=== PATIENT | male | born 1935 | race Caucasian/White ===

== ENCOUNTER 2017-09-27 11:04 | Outpatient (RCR) | payer MEDICARE, OTHER | END 2017-10-30 | disposition home or self-care (01) | PROVIDERS: ATTEND Orthopaedic Surgery | DX: M54.2 Cervicalgia (principal) ==

== ENCOUNTER 2018-10-29 10:45 | Day surgery (SDC) | payer MEDICARE, OTHER ==
[~2018-10-29] VITALS: Ht 170.2 cm; Wt 58.5 kg
[2018-10-29 10:40] VITALS: BP 141/76
[2018-10-29] MEDS ORDERED: ONDANSETRON 4 MG/2 ML (SDV) Z0FRAN IV ONE (11:15)
[2018-10-29] MEDS ORDERED: FAMOTIDINE 20MG/2ML IV (PEPCID) IV ONE (11:15)
--- OUTSIDE RECORDS SUMMARY | 2018-10-29 11:24 | XMS REPORT | Continuity of Care Document ---
Author Author [facility] Organization [facility] Address Unknown Phone Unavailable Allergies There is no data. Medications There is no data. Problems Date Dx Coded Attending Type Code Diagnosis Diagnosed By 02/26/2016 JENNIFER ESPINOZA STAMP PRESSER Ot M54.2 CERVICALGIA 03/01/2016 JENNIFER ESPINOZA STAMP PRESSER Ot M54.2 CERVICALGIA 03/01/2016 GIFTY ESPINOZAH E STAMP PRESSER Ot M54.2 CERVICALGIA 03/01/2016 JENNIFER ESPINOZA E STAMP PRESSER Ot M54.2 CERVICALGIA 03/26/2016 JENNIFER ESPINOZA STAMP PRESSER Ot M54.2 CERVICALGIA 08/01/2017 AZUCENA CORONA DO Ot M54.2 CERVICALGIA 08/25/2017 AZUCENA CORONA DO Ot M54.2 CERVICALGIA 10/30/2017 AZUCENA CORONA DO Ot M54.2 CERVICALGIA Procedures There is no data. Results There is no data. Encounters ACCT No. Visit Date/Time Discharge Status Pt. Type Provider Facility Loc./Unit Complaint [id number] 10/31/2017 00:30:00 10/31/2017 23:59:59 CLS Preadmit AZUCENA CORONA DO [facility] REH[facility]K [facility] [id number] 09/27/2017 11:04:00 10/30/2017 00:01:00 DIS Outpatient AZUCENA CORONA DO [facility] REHAB NECK PAIN [id number] 04/20/2016 09:42:00 04/20/2016 13:51:00 DIS Outpatient [facility]
[2018-10-29] MEDS ORDERED: BUP/EPI 0.5% 1:200,000 (SENSORCAINE) 30 ML VIAL ONE (11:44)
[2018-10-29] MEDS: LACTATED RINGERS 1,000 ML IV PRN ×2 (11:45→14:30)
--- NOTE | 2018-10-29 11:49 | History & Physicial ---
History of Present Illness History of Present Illness Reason for visit/HPI increasing right upper quadrant pain nausea 2 days duration. Evaluation has shown gallstones with features of acute cholecystitis. LFTs are normal Date of Admission 10/29/18 Date Seen by a Provider: Oct 29, 2018 Time Seen by a Provider: 11:45 I consulted on this patient on 10/29/18 11:44 Attending Physician Ronald Brooke MD Admitting Physician No,Local Physician Consult Allergies and Home Medications Allergies Coded Allergies: No Known Allergies (Verified Allergy, Unknown, 10/29/18) Patient Home Medication List Home Medication List Reviewed: Yes Past Yitywpd-Xfemdp-Bouisu Hx Patient Social History Marrital Status: Employed/Student: retired Recent Foreign Travel: No Contact w/other who traveled: No Surgeries Yes Nephrectomy, Orthopedic Respiratory No Cardiovascular Yes Coronary Artery Disease, Hypertension Neurological No Genitourinary No Gastrointestinal Yes Gastroesophageal Reflux Musculoskeletal Yes Arthritis Endocrine History of Endocrine Disorders: No HEENT History of HEENT Disorders: No Review of Systems Constitutional: malaise EENTM: no symptoms reported Respiratory: no symptoms reported Gastrointestinal: see HPI Genitourinary: no symptoms reported Musculoskeletal: joint pain Skin: no symptoms reported Psychiatric/Neurological: No Symptoms Reported Physical Exam Vital Signs Capillary Refill : Height, Weight, BMI Height: '" Weight: lbs. oz. kg; BMI Method: General Appearance: No Apparent Distress Neck: Normal Inspection Respiratory: Lungs Clear Cardiovascular: Regular Rate, Rhythm Gastrointestinal: Hernia, Tenderness Extremity: Other Neurologic/Psychiatric: Oriented x3 Skin: Warm/Dry Comments transverse scar over the right side of the abdomen with an incisional hernia closer to the midline. Large lumbar hernia with a lipoma over the right side. 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 Multiple other medical problems. I offered cholecystectomy using minimally invasive technique with robotic assistance and possible cholangiogram. Expected recovery, complications of wound infection, bile leak etc. have been discussed thoroughly and he seems to be in agreement Admission Diagnosis Admission Status: Other (Same Day Surgery) RONALD BROOKE MD Oct 29, 2018 11:49
--- NOTE | 2018-10-29 11:49 | Progress Note-Pre Operative ---
Pre-Operative Progress Note H&P Reviewed The H&P was reviewed, patient examined and no changes noted. Date Seen by Provider: Oct 29, 2018 Time Seen by Provider: 11:20 Date H&P Reviewed: Oct 29, 2018 Time H&P Reviewed: 11:49 Pre-Operative Diagnosis: gallstones with acute cholecystitis RONALD BROOKE MD Oct 29, 2018 11:49
[2018-10-29] MEDS ORDERED: proPOfol 200 MG/20 ML (DIPRIVAN) VIAL IV ONE (12:11)
[2018-10-29] MEDS ORDERED: fentaNYL INJECTION 100 MCG/2 ML AMP ONE (12:11)
[2018-10-29] MEDS ORDERED: ROCURONIUM 10 MG/ML 5 ML SYRINGE IV ONE (12:11)
[2018-10-29] MEDS ORDERED: DEXAMETHASONE 10 MG/ML (DECADRON) 1 ML VIAL ONE (12:11)
[2018-10-29] MEDS ORDERED: ONDANSETRON 4 MG/2 ML (SDV) Z0FRAN ONE (12:11)
[2018-10-29] MEDS ORDERED: SEVOFLURANE (ULTANE) 15 ML INHAL SOLN ONE ×3 (12:14→14:37)
[2018-10-29] MEDS ORDERED: ceFAZolin 1 GM/NS 50 ML IVPB IV ONE ×2 (12:15)
[2018-10-29] MEDS ORDERED: metroNIDAZOLE 500MG/100ML IVPB 100 ML IV ONE (12:15)
[2018-10-29] MEDS ORDERED: ASCO-262 PO (13:31)
[2018-10-29] MEDS ORDERED: ONDA4TAB11 PO (13:31)
[2018-10-29] MEDS ORDERED: FISH1CAP15 PO (13:31)
[2018-10-29] MEDS ORDERED: CYAN10006 PO (13:31)
[2018-10-29] MEDS ORDERED: LEVO50TA6 PO (13:31)
[2018-10-29] MEDS ORDERED: ALLO300T2 PO (13:31)
[2018-10-29] MEDS ORDERED: PANT40TA3 PO (13:31)
[2018-10-29] MEDS ORDERED: CALC-6 PO (13:31)
[2018-10-29] MEDS ORDERED: TRAM50TA2 PO (13:31)
[2018-10-29] MEDS ORDERED: LACTATED RINGERS 1,000 ML IV ONE (14:37)
--- NOTE | 2018-10-29 15:10 | Operative Report ---
Operative Report Date of Procedure/Surgery Oct 29, 2018 Surgeon (s) RONALD BROOKE MD Range Master (s): N/A Post-Operative Diagnosis Same Procedure Performed Robotic assisted cholecystectomy Description of Procedure Anesthesia Type: General Estimated blood loss (mL): Minimal Specimen(s) collected/removed Gallbladder with large stones Description of the Procedure Indication for the procedure: This gentleman presented with symptomatic gallstones and features of acute cholecystitis. He was offered prompt cholecystectomy, using minimally invasive technique with robotic assistance. Informed consent was obtained after reviewing the operative details and complications of wound infection, bile leak and cardiorespiratory dysfunction. Description of the procedure: He was placed supine on the operative table and general anesthesia induced. 1 g of Ancef and 500 mg of Flagyl were administered intravenously as prophylaxis against wound infection. Sequential compression devices were placed around his legs, to minimize the risk of venous thrombosis. Abdomen was made and draped in the usual sterile manner. Due to previous upper abdominal surgery involving nephrectomy, I elected to establish pneumoperitoneum using a Veress needle introduced over the left costal region. Intra-abdominal pressure was maintained at 15 mmHg, using carbon dioxide insufflation. A 5 mm trocar was placed and anatomy visualized using the 30, conventional laparoscope. Omentum and the pylorus of the stomach where adherent to the anterior abdominal wall, obscuring the subhepatic region. Under direct view, I placed a 12 mm trocar over the subumbilical region, followed by 2 additional 8 mm trocars over each side of the abdomen. We, then, switched to the robotic system. Omental adhesions were taken down using hook cautery, without any iatrogenic injury to the pylorus. An acutely inflamed gallbladder with an associated phlegmon came into view. The fundus of the gallbladder was retracted cephalad, in preparation for dissection. Since the gallbladder was rather tense, it had to be decompressed deliberately allowing the spillage of a total of 5 large gallstones. These were placed over the subhepatic space to be removed at the end of the operation. Eventually, I was able to grasp the infundibulum of the gallbladder with Cadiere forceps and delineate the cystic duct and artery using a combination of blunt dissection with the suction tip and cautery. Both were controlled between locking hemoclips. Cholecystectomy was then completed using hook cautery. Subhepatic space was irrigated with copious amounts of warm saline. The gallbladder and the large stones were placed in an Endo Catch bag and removed via the subumbilical trocar site, under direct laparoscopic view. The fascia over this incision was then closed using #1 Vicryl. Skin incisions were closed using 4-0 Vicryl, in a subcuticular fashion. 0.5 percent Marcaine with epinephrine was infiltrated along the incisions, both preemptively and at the conclusion of the operation. He tolerated the procedure well, was extubated in the operative room and taken to the recovery room in a stable condition. Findings of the Procedure See op report Allergies and Home Medications Allergies Coded Allergies: No Known Allergies (Verified Allergy, Unknown, 10/29/18) Home Medications Allopurinol 300 Mg Tablet, 300 MG PO DAILY, (Reported) Ascorbate Calcium 500 Mg Tablet, 500 MG PO DAILY, (Reported) Calcium Carbonate/Vitamin D3 1 Each Tablet, 1 EACH PO DAILY, (Reported) Cyanocobalamin (Vitamin B-12) 1,000 Mcg Tablet, 1,000 MCG PO UD, (Reported) TAKES ONE TABLET PO THREE TIMES A WEEK Levothyroxine Sodium 50 Mcg Tablet, 50 MCG PO DAILY, (Reported) Ondansetron 4 Mg Tab.rapdis, 4 MG PO Q6H, (Reported) Pantoprazole Sodium 40 Mg Tablet.dr, 40 MG PO DAILY, (Reported) Tramadol HCl 50 Mg Tablet, 50 MG PO Q6H, (Reported) Patient Home Medication List Home Medication List Reviewed: Yes RONALD BROOKE MD Oct 29, 2018 15:10
[2018-10-29] MEDS ORDERED: fentaNYL INJECTION 100 MCG/2 ML AMP IV PRN (15:15)
[2018-10-29] MEDS ORDERED: HYDROcodone/APAP 5 MG/325 MG (LORTAB) TAB PO PRN (15:15)
[2018-10-29] MEDS ORDERED: ONDANSETRON 4 MG/2 ML (SDV) Z0FRAN IVP PRN ×2 (15:15→15:45)
--- NOTE | 2018-10-29 15:16 | Discharge Inst-Simple/Standard ---
Discharge Inst-Standard Discharge Medications New, Converted or Re-Newed RX: Other Patient Instructions/Follow Up Plan of Care/Instructions/FU: May use tramadol that he already has. Band-Aids off before discharge. Follow-up in 10 days Activity as Tolerated: Yes Discharge Diet: No Restrictions RONALD BROOKE MD Oct 29, 2018 15:16
[2018-10-29] MEDS ORDERED: morphine INJ 10 MG/ML 1ML (SYR OR VIAL) IVP ONE (15:45)
[2018-10-29] MEDS ORDERED: HYDROmorphone 2 MG/ML VIAL (DILAUDID) IV ONE (15:45)
[2018-10-29] MEDS ORDERED: morphine INJ 10 MG/ML 1ML (SYR OR VIAL) ONE (15:47)
[2018-10-29] MEDS ORDERED: NEOSTIGMINE 1 MG/ML 5 ML SYRINGE ONE (16:39)
[2018-10-29] MEDS ORDERED: GLYCOPYRROLATE 0.2 MG/ML (ROBINUL) 2 ML VIAL ONE (16:39)
[2018-10-29 16:50] VITALS: BP 120/60
[2018-10-29 19:05] VITALS: BP 149/75
[2018-10-29] MEDS: ceFAZolin INJECTION 1,000 MG in NS (IVPB) 50 ML IV SCH (20:18)
[2018-10-29] MEDS: metroNIDAZOLE 500MG/100ML IVPB 100 ML IV SCH (21:38)
[2018-10-30 00:05] VITALS: BP 112/61
[2018-10-30 04:00] VITALS: BP 111/57
[2018-10-30] MEDS: metroNIDAZOLE 500MG/100ML IVPB 100 ML IV SCH (04:01)
--- NOTE | 2018-10-30 04:04 | NUR ---
Straight cath'd with sterile technique - return of 600 mls clear yellow urine. Pt tolerated well. will continue to monitor.
[2018-10-30] MEDS: ceFAZolin INJECTION 1,000 MG in NS (IVPB) 50 ML IV SCH (05:00)
[2018-10-30] MEDS ORDERED: LEVOTHYROXINE 50 MCG (LEVOTHROID) TAB PO SCH (06:30)
[2018-10-30] MEDS ORDERED: PANTOPRAZOLE 40 MG (PROTONIX) TAB PO SCH (07:00)
[2018-10-30 08:00] VITALS: BP 114/65
[2018-10-30] MEDS ORDERED: CALCIUM CARB + VIT D 600 MG (CALCARB + D) TAB PO SCH (08:00)
[2018-10-30] MEDS ORDERED: NON-FORMULARY MEDICATION 1 EA EA (Calcium Carbonate/Vitamin D3 (Calcium 600 + Vit D 200 Ta PO SCH (09:00)
[2018-10-30] MEDS ORDERED: NON-FORMULARY MEDICATION 1 EA EA (Allopurinol 300 MG) PO SCH (09:00)
[2018-10-30] MEDS ORDERED: ALLOPURINOL 300 MG (ZYLOPRIM) TAB PO SCH (09:00)
[2018-10-30 12:00] VITALS: BP 120/62
--- NOTE | 2018-10-30 12:44 | Anesthesia-General Post-Op ---
General Patient Condition Mental Status/LOC: Same as Preop Cardiovascular: Satisfactory Nausea/Vomiting: Absent Respiratory: Satisfactory Pain: Controlled Complications: Absent Post Op Complications Complications None Follow Up Care/Instructions Patient Instructions None needed. Anesthesia/Patient Condition Patient Condition Patient is doing well, no complaints, stable vital signs, no apparent adverse anesthesia problems. No complications reported per nursing. MTAHEW DEL ANGEL CRNA Oct 30, 2018 12:44
[2018-10-30 13:00] VITALS: BP 120/62
--- NOTE | 2018-10-30 13:00 | NUR ---
MARK HILTON JR demonstrates understanding of discharge instructions and accurately returns instructions upon questioning. Copy of Post-Discharge Instructions given to PT. MARK HILTON JR is able to manage continuing needs after discharge WITH ASSISTANCE OF . Patients belongings returned to PT. Patient discharged from [facility] on 10/30/18 at 1300. MARK HILTON JR left floor via W/C, accompanied by STAFF AND AUTO PER .
== END 2018-10-30 13:00 | disposition home or self-care (01) ==
LOC: SDC 10:45 → 4TH 17:05 → SDC 10-30 13:00
PROVIDERS: ATTEND Surgery
DX: K80.12 Calculus of gallbladder with acute and chronic cholecystitis without obstruction (principal); I25.10 Atherosclerotic heart disease of native coronary artery without angina pectoris; I10 Essential (primary) hypertension; K21.9 Gastro-esophageal reflux disease without esophagitis; Z79.899 Other long term (current) drug therapy
CPT/HCPCS: 87081; 94664

== ENCOUNTER → 2018-11-09 | Outpatient (CLI) | payer MEDICARE, OTHER ==
[~2018-11-09] MED LIST: ALLO300T2 PO; ASCO-262 PO; CALC-6 PO; CYAN10006 PO; FISH1CAP15 PO; LEVO50TA6 PO; ONDA4TAB11 PO; PANT40TA3 PO; TRAM50TA2 PO
--- NOTE | 2018-11-09 12:27 | Diagnostic Imaging Report ---
Indication: Dysphasia. Study was performed in conjunction with speech therapy. Videofluoroscopy was performed during swallowing of barium in multiple consistencies. Total of one minute 47 seconds of fluoroscopy time was utilized. Patient ingested thin and thick barium as well as applesauce, meat and cracker consistency. The oral phase is grossly unremarkable. There was normal epiglottic tilt and laryngeal elevation. No laryngeal penetration or aspiration was observed. There is a moderate vallecular residue identified with multiple consistencies. Impression: Moderate vallecular residue. No penetration or aspiration was observed. Dictated by: Dictated on workstation # [id number]
== END ==
LOC: RAD 09:12
PROVIDERS: ATTEND Internal Medicine Gastroenterology
DX: K21.9 Gastro-esophageal reflux disease without esophagitis (principal)
CPT/HCPCS: 74230

== ENCOUNTER 2018-11-20 09:50 | Outpatient (RCR) | payer MEDICARE, OTHER | END 2019-02-18 | disposition home or self-care (01) | PROVIDERS: ATTEND Internal Medicine Gastroenterology | DX: R13.19 Other dysphagia (principal) ==

== ENCOUNTER 2019-10-23 10:54 | Outpatient (RCR) | payer MEDICARE, OTHER ==
[~2019-10-23 10:54] MED LIST changes: +CYAN-41 PO; -CYAN10006 PO; -TRAM50TA2 PO; +TRM50T PO
== END 2019-10-23 12:00 | disposition home or self-care (01) ==
PROVIDERS: ATTEND Physician Assistant
DX: M40.294 Other kyphosis, thoracic region (principal); M54.2 Cervicalgia

== ENCOUNTER 2019-10-27 16:09 | Emergency (ER) | payer MEDICARE, OTHER ==
[~2019-10-27] VITALS: Ht 170 cm; Wt 60.0 kg
[2019-10-27] MEDS ORDERED: NS IV 500 ML 500 ML IV ONE (17:00)
--- NOTE | 2019-10-27 17:06 | ED Back Pain ---
General Chief Complaint: Back Problems Stated Complaint: LOWER BACK PAIN Source of Information: Patient, Family () Exam Limitations: Language Barrier, Physical Impairments (hard of hearing) History of Present Illness Date Seen by Provider: Oct 27, 2019 Time Seen by Provider: 16:47 Initial Comments 84-year-old male presents with for evaluation and treatment of back and flank pain. Patient states he's had progressive increasing pain over the past 2- 3 days. Pain is now very sharp patient states that his right kidney was removed in the secondary to a growth on the side of the kidney. He only has one kidney and now the left flank S significant pain with CVA tenderness spasm and colicky type pain that goes down into his flank and inguinal area. Patient also states he has low back pain with radicular component significant for sciatica. 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 Bradley is his attending physician patient has given informed consent for diagnostic and therapeutic services. In light of the flank pain that goes down into his anterior inguinal area were getting a scan for possible kidney stones as he only has a right sided system this working. This dictation utilizes [employer] software. Efforts have been made to correct any errors identified. Some errors are able to penetrates the review process. This is not an intentional event. If you have any questions regarding this dictation please contact Agata Almaguer DO Timing/Duration: 2-3 Days Severity: Moderate Pain/Injury Location: Back, Pelvis (and left flank) Radiation: Buttocks, Lower Legs, Other (left inguinal area) Method of Injury: Unknown (he started 3 days ago and has progressively gotten worse) Modifying Factors: Improves With Movement Associated Symptoms: muscle spasms, weakness, tingling in legs/feet, lower back pain, other (sensation of colicky pain in the left flank down to the left inguinal area) Allergies and Home Medications Allergies Coded Allergies: No Known Allergies (Verified Allergy, Unknown, 10/29/18) Home Medications Allopurinol 300 Mg Tablet, 300 MG PO DAILY, (Reported) Ascorbate Calcium 500 Mg Tablet, 500 MG PO DAILY, (Reported) Calcium Carbonate/Vitamin D3 1 Each Tablet, 1 EACH PO DAILY, (Reported) Cyanocobalamin (Vitamin B-12) 1,000 Mcg Tablet, 1,000 MCG PO UD, (Reported) TAKES ONE TABLET PO THREE TIMES A WEEK Levothyroxine Sodium 50 Mcg Tablet, 50 MCG PO DAILY, (Reported) Ondansetron 4 Mg Tab.rapdis, 4 MG PO Q6H, (Reported) Pantoprazole Sodium 40 Mg Tablet.dr, 40 MG PO DAILY, (Reported) Tramadol HCl 50 Mg Tablet, 50 MG PO Q6H, (Reported) Patient Home Medication List Home Medication List Reviewed: Yes Review of Systems Constitutional: malaise, weakness, other (progressive left-sided flank pain) EENTM: hearing loss, blurred vision (earlier), vision loss, nose congestion Respiratory: dyspnea on exertion, short of breath (with exertion) Cardiovascular: other (some shortness of breath on exertion) Gastrointestinal: LLQ, see HPI, other (left CVA tenderness and left pain radiating down to the inguinal area) Genitourinary: pain (only has a left-sided kidney and has symptoms in that area) Musculoskeletal: back pain, gout, joint swelling (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), muscle pain, muscle stiffness, muscle weakness Skin: dryness Psychiatric/Neurological: Anxiety, Weakness, Other (as loss of hearing and loss of vision which makes him more anxious) Past Snzodid-Mmpcty-Jbizfl Hx Past Med/Social Hx: Reviewed Nursing Past Med/Soc Hx Patient Social History Recent Hopitalizations: Yes (10/23/18,[facility], 10/27/18, [facility] ) Immunizations Up To Date Date of Pneumonia Vaccine: Dec 14, 2016 Date of Influenza Vaccine: Jul 11, 2018 Seasonal Allergies Seasonal Allergies: No Past Medical History Surgeries: Yes Nephrectomy, Orthopedic Respiratory: No Sleep Apnea Currently Using CPAP: No (HASNT USED CPAP FOR 5-6 YEARS) Cardiac: Yes Coronary Artery Disease, Hypertension Neurological: No Genitourinary: No Gastrointestinal: Yes Gastroesophageal Reflux Musculoskeletal: Yes Arthritis Endocrine: No Hypothyroidsim HEENT: No Hearing Impairment: Hard of Hearing, Hearing Aide Right Cancer: No Psychosocial: No Integumentary: No Blood Disorders: No Family Medical History Reviewed Nursing Family Hx Physical Exam Vital Signs Vital Signs - First Documented 10/27/19 16:51 Temp 37.5 Pulse 92 Resp 20 B/P (MAP) 156/63 (94) Pulse Ox 95 Capillary Refill : Height, Weight, BMI Height: 5'7.00" Weight: 129lbs. 0.0oz. [id number]; 20.2 BMI Method: General Appearance: Moderate Distress (affect flank pain and left back pain) HEENT: PERRL/EOMI (but poor vision since his cataract surgery), Normal ENT Inspection (significant hearing loss), Pharynx Normal Neck: Non Tender, Supple, Limited Range of Motion (Canary to DJD) Cardiovascular: Regular Rate, Rhythm, No Edema, No Gallop, No JVD, No Murmur Respiratory: Chest Non Tender, No Accessory Muscle Use, No Respiratory Distre ss, Crackles, Rales (lateral posterior bases clears with deep ventilation) Peripheral Pulses: 2+ Carotid (R), 2+ Carotid (L) Gastrointestinal: Normal Bowel Sounds, No Organomegaly, No Pulsatile Mass, Non Tender, Soft Back: Normal Inspection, CVA Tenderness (L), Muscle Spasm Extremity: Normal Capillary Refill, Normal Inspection, Normal Range of Motion, Non Tender, No Calf Tenderness Neurologic/Psychiatric: Alert, Oriented x3, No Motor/Sensory Deficits, Normal 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, 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 Norm as Tested Skin: Normal Color, Warm/Dry Lymphatic: No Adenopathy Progress/Results/Core Measures Results/Orders Lab Results Laboratory Tests Test 10/27/19 16:18 10/27/19 17:05 Range/Units Urine Color YELLOW Urine Clarity CLEAR Urine pH 7.5 5-9 Urine Specific Alpha 1.020 1.016-1.022 Urine Protein NEGATIVE NEGATIVE Urine Glucose (UA) NEGATIVE NEGATIVE Urine Ketones NEGATIVE NEGATIVE Urine Nitrite NEGATIVE NEGATIVE Urine Bilirubin NEGATIVE NEGATIVE Urine Urobilinogen 0.2 < = 1.0 MG/DL Urine Leukocyte Esterase NEGATIVE NEGATIVE Urine RBC (Auto) NEGATIVE NEGATIVE Urine RBC RARE /HPF Urine WBC RARE /HPF Urine Crystals NONE /LPF Urine Bacteria NEGATIVE /HPF Urine Casts NONE /LPF Urine Mucus NEGATIVE /LPF Urine Culture Indicated NO White Blood Count 10.6 4.3-11.0 10^3/uL Red Blood Count 4.22 L 4.35-5.85 10^6/uL Hemoglobin 13.3 13.3-17.7 G/DL Hematocrit 41 40-54 % Mean Corpuscular Volume 96 80-99 FL Mean Corpuscular Hemoglobin 32 25-34 PG Mean Corpuscular Hemoglobin Concent 33 32-36 G/DL Red Cell Distribution Width 12.6 10.0-14.5 % Platelet Count 139 130-400 10^3/uL Mean Platelet Volume 10.5 H 7.4-10.4 FL Neutrophils (%) (Auto) 72 42-75 % Lymphocytes (%) (Auto) 15 12-44 % Monocytes (%) (Auto) 11 0-12 % Eosinophils (%) (Auto) 1 0-10 % Basophils (%) (Auto) 1 0-10 % Neutrophils # (Auto) 7.6 1.8-7.8 X 10^3 Lymphocytes # (Auto) 1.6 1.0-4.0 X 10^3 Monocytes # (Auto) 1.2 H 0.0-1.0 X 10^3 Eosinophils # (Auto) 0.1 0.0-0.3 10^3/uL Basophils # (Auto) 0.1 0.0-0.1 10^3/uL Neutrophils % (Manual) 71 % Lymphocytes % (Manual) 14 % Monocytes % (Manual) 11 % Eosinophils % (Manual) 1 % Band Neutrophils 3 % Toxic Granulation 2+ Platelet Estimate ADEQUATE Blood Morphology Comment NORMAL Sodium Level 138 135-145 MMOL/L Potassium Level 4.4 3.6-5.0 MMOL/L Chloride Level 103 98-107 MMOL/L Carbon Dioxide Level 24 21-32 MMOL/L Anion Gap 11 5-14 MMOL/L Blood Urea Nitrogen 23 H 7-18 MG/DL Creatinine 1.61 H 0.60-1.30 MG/DL Estimat Glomerular Filtration Rate 41 BUN/Creatinine Ratio 14 Glucose Level 110 H 70-105 MG/DL Lactic Acid Level 1.10 0.50-2.00 MMOL/L Calcium Level 9.0 8.5-10.1 MG/DL Corrected Calcium 9.6 8.5-10.1 MG/DL Magnesium Level 2.0 1.6-2.4 MG/DL Total Bilirubin 0.4 0.1-1.0 MG/DL Aspartate Amino Transf (AST/SGOT) 15 5-34 U/L Alanine Aminotransferase (ALT/SGPT) 9 0-55 U/L Alkaline Phosphatase 91 40-136 U/L Total Protein 6.3 L 6.4-8.2 GM/DL Albumin 3.2 3.2-4.5 GM/DL Micro Results Microbiology 10/27/19 Influenza Types A,B Antigen (JARETH) - Final, Complete My Orders Orders - AGATA ALMAGUER DO Cbc And Manual Diff (10/27/19 16:56) Comprehensive Metabolic Panel (10/27/19 16:56) Lactic Acid Analyzer (10/27/19 16:56) Urinalysis (10/27/19 16:56) Ns Iv 500 Ml (Sodium Chloride 0.9%) (10/27/19 17:00) Ct Abd/Pelvis Wo(Kidney Stone) (10/27/19 16:56) Chest 1 View Ap/Pa Only (10/27/19 16:56) Magnesium (10/27/19 16:56) Ekg Tracing (10/27/19 16:56) Blood Culture (10/27/19 16:56) Influenza A And B Antigens (10/27/19 16:56) Azithromycin Injection (Zithromax Inject (10/27/19 19:15) Medications Given in ED Current Medications Medications Dose Ordered Sig/Dulce Route Start Time Stop Time Status Last Admin Dose Admin Azithromycin 500 mg/Sodium Chloride 250 ml @ 250 mls/hr ONCE ONCE IV 10/27/19 19:15 10/27/19 20:14 10/27/19 19:22 250 MLS/HR Sodium Chloride 500 ml @ 30 mls/hr [id number] ONCE IV 10/27/19 17:00 10/28/19 09:39 10/27/19 17:30 30 MLS/HR Vital Signs/I&O 10/27/19 16:51 Temp 37.5 Pulse 92 Resp 20 B/P (MAP) 156/63 (94) Pulse Ox 95 Progress Progress Note : Time: 18:59 Progress Note Patient feels better and is walking up and down the hallway. Imaging reveals the patient may have had a left ureteral obstruction that has recently passed because he has a hydronephrosis. Chest x-ray shows multiple nonspecific nodularities immediately follow-up in primary care. Does not appear the patient has an active ureteral obstruction however he does have several nonobstructing stones in his left kidney which puts him at significant risk and needs to stay very well-hydrated. INDICATION: Low back pain for three days. Right flank pain with intermittent left flank pain. History of right nephrectomy, hernia repair and cholecystectomy. EXAMINATION: CT kidney stone protocol, 10/27/2019. All CT scans use one or more of the following dose optimizing techniques: automated exposure control, MA and/or KvP adjustment based on patient size and exam type or iterative reconstruction. FINDINGS: There is evidence of previous right-sided nephrectomy. Nonopacified abdominal viscera limited due to lack of contrast. Multiple nonobstructive stones seen in the left kidney. There is mild left hydronephrosis suspected. Parapelvic cysts are also likely. The proximal left ureter is slightly prominent. More distally it demonstrates normal caliber; however, no ureteral stones are appreciated at this time. These findings could be due to a recently passed renal stone versus perhaps even pyelonephritis. Minimal wall thickening of the urinary bladder could be due to underdistention versus cystitis. The prostate gland is prominent. Calcifications throughout the pelvis are likely phleboliths. Diffuse diverticular disease is noted but no evidence for acute diverticulitis. Appendix unremarkable. The liver and spleen are grossly unremarkable for acute abnormality. Pancreas is within normal limits. Evidence of previous cholecystectomy noted. No acute abnormality within the bowel loops. No free air or fluid. Within the left lower quadrant anteriorly, just left lateral to the sigmoid colon, there is a focal nonspecific soft tissue density which is 2.4 x 3.3 cm in size. This is a nonspecific finding. Given the known history of previous internal hernia repair, this could be postoperative in nature. A focal soft tissue mass of uncertain etiology, including some type of soft tissue sarcoma, is difficult to exclude. Either comparison with any prior imaging or perhaps postcontrast imaging on a nonemergent basis may provide further characterization. No surrounding inflammation is seen. No acute osseous abnormality. The lung bases demonstrate chronic findings. Small nodule in the left lung base, approximately 4 mm in size, image #8, is noted and could be followed in 6-12 months depending on patient's risk factors. A similar finding noted on image #3, measuring approximately 3-4 mm in size. IMPRESSION: 1. Evidence of right nephrectomy with nonobstructive stones in the left kidney. Left-sided mild hydroureteronephrosis is seen with no ureteral stones at this time. Findings could be due to a recently passed stone versus pyelonephritis, correlate with symptoms. 2. Cystitis versus underdistention of the urinary bladder. 3. Nonspecific soft tissue density in the left anterior lower abdomen/pelvis, see above discussion and recommendations. 4. Small nodules in the left lung base. If patient has a high risk history a followup in 6-12 months recommended. Other incidental findings as discussed above. FINDINGS: There are multiple rounded densities seen overlying the left lateral lower chest, perhaps overlying the patient, clinically correlate. In the remaining lungs, very small nodularities are seen in the periphery of the right mid lung with linear densities in the region as well. A more focal rounded lesion in the region is seen measuring almost 9 mm in size. Densities in the right upper lung are also noted. These could be calcified although noncalcified nodules are not excluded. No effusions. No pneumothorax. Heart and pulmonary vasculature are unremarkable. Right infrahilar atelectasis or scarring noted. IMPRESSION: 1. Findings throughout the right mid lung could represent an atypical pneumonia was nodularities as above, however, followup is recommended to assure complete resolution and exclude any underlying noncalcified nodules. 2. Multiple densities in the left lower chest, nonspecific, but likely overlying the patient. Correlate clinically. There is a possible atypical pneumonia and this will be treated. Patient will be discharged to his family practice provider. He should follow-up on Monday or Monday and return to the emergency room if he has any decompensation in the meantime. Departure Impression Primary Impression: Lumbar radiculopathy Additional Impressions: Pneumonia Kidney stone on left side Pulmonary nodule Disposition: 01 HOME, SELF-CARE Condition: Stable Departure-Patient Inst. [place] [facility] [place] Primary Care Physician GUY SAUNDERS APRN (Family) Primary Care Physician AZUCENA BRADLEY DO Patient Instructions: Flank Pain, Lumbar Muscle Strain (DC), Muscle Strain (DC), Pneumonia, Adult (DC), Renal Colic (DC) Add. Discharge Instructions: Patient appears to have a early pneumonia in his right lung which was treated with 500 mg of azithromycin IV and will continue on 250 of azithromycin daily for the next 6 days. Patient also is aware that he has nodularity in the long that should be followed up by Guy Saunders MACHINE ASSISTANT. Patient has an appointment with Dr. Bradley for orthopedics. He has had a previous neck fusion by Dr. 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 Patient has multiple stones that are nonobstructing this left kidney. As this is his only remaining functioning kidney he needs to be very careful about hydration and prevention of obstruction. Patient will follow up with Guy Saunders NP sometime next week. All discharge instructions reviewed with patient and/or family. Voiced understanding. Scripts Azithromycin (Azithromycin) 250 Mg Tablet 250 MG PO UD for 6 Days, #6 TAB TAKE 2 TABLETS ON DAY ONE THEN TAKE 1 TABLET DAILY FOR FOUR MORE DAYS Prov: AGATA ALMAGUER DO 10/27/19 AGATA ALMAGUER DO Oct 27, 2019 17:06
[2019-10-27 17:16] LABS: CLARITY,URINE CLEAR; COLOR,URINE YELLOW; GLUCOSE, URINE (UA) NEGATIVE (NEGATIVE); KETONES,URINE NEGATIVE (NEGATIVE); PH,URINE 7.5 (5-9); PROTEIN,URINE NEGATIVE (NEGATIVE)
[2019-10-27 17:17] LABS: BACTERIA,URINE NEGATIVE /HPF; BILIRUBIN,URINE NEGATIVE (NEGATIVE); LEUKOCYTE ESTERASE ,URINE NEGATIVE (NEGATIVE); NITRITE,URINE NEGATIVE (NEGATIVE); RBC,URINE RARE /HPF; WBC,URINE RARE /HPF
[2019-10-27 18:08] LABS: HEMATOCRIT 41 % (40-54); HEMOGLOBIN 13.3 G/DL (13.3-17.7); MEAN CORPUSCULAR HEMOGLOBIN 32 PG (25-34); MEAN CORPUSCULAR HGB CONC 33 G/DL (32-36); MEAN CORPUSCULAR VOLUME 96 FL (80-99); MEAN PLATELET VOLUME 10.5 FL (7.4-10.4); NEUTROPHILS % (AUTO) 72 % (42-75); PLATELET COUNT 139 10^3/uL (130-400); RED CELL DISTRIBUTION WIDTH 12.6 % (10.0-14.5); WHITE BLOOD COUNT 10.6 10^3/uL (4.3-11.0)
[2019-10-27 18:09] LABS: BAND NEUTROPHILS 3 %; BASOPHILS # (AUTO) 0.1 10^3/uL (0.0-0.1); BASOPHILS % (AUTO) 1 % (0-10); EOSINOPHILS # (AUTO) 0.1 10^3/uL (0.0-0.3); EOSINOPHILS % (AUTO) 1 % (0-10); EOSINOPHILS % (MANUAL) 1 %; LYMPHOCYTES # (AUTO) 1.6 X 10^3 (1.0-4.0); LYMPHOCYTES % (AUTO) 15 % (12-44); LYMPHOCYTES % (MANUAL) 14 %; MONOCYTES # (AUTO) 1.2 X 10^3 (0.0-1.0); MONOCYTES % (AUTO) 11 % (0-12); MONOCYTES % (MANUAL) 11 %; NEUTROPHILS # (AUTO) 7.6 X 10^3 (1.8-7.8); NEUTROPHILS % (MANUAL) 71 %
[2019-10-27 18:10] LABS: PLATELET ESTIMATE ADEQUATE; RBC MORPH NORMAL; TOXIC GRANULATION/VACUOLAZATIO 2+
[2019-10-27 18:15] LABS: CREATININE SERUM 1.61 MG/DL (0.60-1.30); POTASSIUM 4.4 MMOL/L (3.6-5.0)
[2019-10-27 18:16] LABS: BILIRUBIN,TOTAL 0.4 MG/DL (0.1-1.0)
[2019-10-27 18:17] LABS: ALBUMIN 3.2 GM/DL (3.2-4.5); TOTAL PROTEIN 6.3 GM/DL (6.4-8.2)
--- NOTE | 2019-10-27 18:28 | Diagnostic Imaging Report ---
INDICATION: Low back pain and flulike symptoms. EXAMINATION: Chest, 10/27/2019. COMPARISON: None. FINDINGS: There are multiple rounded densities seen overlying the left lateral lower chest, perhaps overlying the patient, clinically correlate. In the remaining lungs, very small nodularities are seen in the periphery of the right mid lung with linear densities in the region as well. A more focal rounded lesion in the region is seen measuring almost 9 mm in size. Densities in the right upper lung are also noted. These could be calcified although noncalcified nodules are not excluded. No effusions. No pneumothorax. Heart and pulmonary vasculature are unremarkable. Right infrahilar atelectasis or scarring noted. IMPRESSION: 1. Findings throughout the right mid lung could represent an atypical pneumonia was nodularities as above, however, followup is recommended to assure complete resolution and exclude any underlying noncalcified nodules. 2. Multiple densities in the left lower chest, nonspecific, but likely overlying the patient. Correlate clinically. Dictated by: Dictated on workstation # [id number]
--- NOTE | 2019-10-27 18:41 | Diagnostic Imaging Report ---
INDICATION: Low back pain for three days. Right flank pain with intermittent left flank pain. History of right nephrectomy, hernia repair and cholecystectomy. EXAMINATION: CT kidney stone protocol, 10/27/2019. All CT scans use one or more of the following dose optimizing techniques: automated exposure control, MA and/or KvP adjustment based on patient size and exam type or iterative reconstruction. FINDINGS: There is evidence of previous right-sided nephrectomy. Nonopacified abdominal viscera limited due to lack of contrast. Multiple nonobstructive stones seen in the left kidney. There is mild left hydronephrosis suspected. Parapelvic cysts are also likely. The proximal left ureter is slightly prominent. More distally it demonstrates normal caliber; however, no ureteral stones are appreciated at this time. These findings could be due to a recently passed renal stone versus perhaps even pyelonephritis. Minimal wall thickening of the urinary bladder could be due to underdistention versus cystitis. The prostate gland is prominent. Calcifications throughout the pelvis are likely phleboliths. Diffuse diverticular disease is noted but no evidence for acute diverticulitis. Appendix unremarkable. The liver and spleen are grossly unremarkable for acute abnormality. Pancreas is within normal limits. Evidence of previous cholecystectomy noted. No acute abnormality within the bowel loops. No free air or fluid. Within the left lower quadrant anteriorly, just left lateral to the sigmoid colon, there is a focal nonspecific soft tissue density which is 2.4 x 3.3 cm in size. This is a nonspecific finding. Given the known history of previous internal hernia repair, this could be postoperative in nature. A focal soft tissue mass of uncertain etiology, including some type of soft tissue sarcoma, is difficult to exclude. Either comparison with any prior imaging or perhaps postcontrast imaging on a nonemergent basis may provide further characterization. No surrounding inflammation is seen. No acute osseous abnormality. The lung bases demonstrate chronic findings. Small nodule in the left lung base, approximately 4 mm in size, image #8, is noted and could be followed in 6-12 months depending on patient's risk factors. A similar finding noted on image #3, measuring approximately 3-4 mm in size. IMPRESSION: 1. Evidence of right nephrectomy with nonobstructive stones in the left kidney. Left-sided mild hydroureteronephrosis is seen with no ureteral stones at this time. Findings could be due to a recently passed stone versus pyelonephritis, correlate with symptoms. 2. Cystitis versus underdistention of the urinary bladder. 3. Nonspecific soft tissue density in the left anterior lower abdomen/pelvis, see above discussion and recommendations. 4. Small nodules in the left lung base. If patient has a high risk history a followup in 6-12 months recommended. Other incidental findings as discussed above. Dictated by: Dictated on workstation # [id number]
[2019-10-27] MEDS ORDERED: AZITHROMYCIN INJECTION 500 MG in NS (IVPB) 250 ML IV ONE (19:15)
[2019-10-27] MEDS ORDERED: AZIT250T12 PO (20:01)
[2019-10-27 20:15] VITALS: BP 118/59
== END 2019-10-27 20:15 | disposition home or self-care (01) ==
LOC: EDUNIT# 16:09 → ER FS 16:10
DX: M54.16 Radiculopathy, lumbar region (principal); J18.9 Pneumonia, unspecified organism; N13.2 Hydronephrosis with renal and ureteral calculous obstruction; R91.1 Solitary pulmonary nodule; I10 Essential (primary) hypertension; K21.9 Gastro-esophageal reflux disease without esophagitis; E03.9 Hypothyroidism, unspecified; Z90.5 Acquired absence of kidney
CPT/HCPCS: 36415; 71045; 74176; 80053; 81000; 83605; 83735; 85007; 85027; 87040; 87804; 93005

== ENCOUNTER 2021-02-11 23:05 | Emergency (ER) | payer MEDICARE, OTHER ==
[~2021-02-11] VITALS: Ht 170.1 cm; Wt 165.0 kg
[~2021-02-11 23:05] MED LIST changes: +AZIT250T12 PO; -CALC-6 PO; +CALC1TAB84 PO; -PANT40TA3 PO; +PANT40TA52 PO
[2021-02-11 23:11] VITALS: BP 157/88
--- NOTE | 2021-02-11 23:34 | ED General ---
General Chief Complaint: Allergic Reaction Stated Complaint: MEDICATION REACTION Source of Information: Patient History of Present Illness Date Seen by Provider: February 11, 2021 Time Seen by Provider: 23:09 Initial Comments 85-year-old male presenting with his having concerns that the patient is having a medication reaction to nortriptyline. He just started this on February 09. He felt tonight that he was having swelling to his throat and tongue and was having difficulty swallowing. He states by the time he arrived here in the ED he had coughed up some white phlegm and is breathing normally now. He does have c hronic dysphagia and has had his esophagus dilated periodically. He states he is overdue for this because he had held off due to Covid in the last year and a half. He has not taken any Benadryl or other medicine at home prior to coming to the ED. He has had no wheezing or stridor. He states he felt flushed and weak after taking the medication. Allergies and Home Medications Allergies Coded Allergies: No Known Allergies (Verified Allergy, Unknown, 10/29/18) Home Medications Allopurinol 300 Mg Tablet, 300 MG PO DAILY, (Reported) Ascorbate Calcium 500 Mg Tablet, 500 MG PO DAILY, (Reported) Azithromycin 250 Mg Tablet, 250 MG PO UD TAKE 2 TABLETS ON DAY ONE THEN TAKE 1 TABLET DAILY FOR FOUR MORE DAYS Prescribed by: AGATA REYES on 10/27/192000 Calcium Carbonate/Vitamin D3 1 Each Tablet, 1 EACH PO DAILY, (Reported) Cyanocobalamin (Vitamin B-12) 1,000 Mcg Tablet, 1,000 MCG PO UD, (Reported) TAKES ONE TABLET PO THREE TIMES A WEEK Levothyroxine Sodium 50 Mcg Tablet, 50 MCG PO DAILY, (Reported) Ondansetron 4 Mg Tab.rapdis, 4 MG PO Q6H, (Reported) Pantoprazole Sodium 40 Mg Tablet.dr, 40 MG PO DAILY, (Reported) Tramadol HCl 50 Mg Tablet, 50 MG PO Q6H, (Reported) Patient Home Medication List Home Medication List Reviewed: Yes Review of Systems Review of Systems Constitutional: No chills, No fever; weakness EENTM: see HPI Respiratory: see HPI; No stridor, No wheezing Cardiovascular: no symptoms reported Gastrointestinal: no symptoms reported Genitourinary: no symptoms reported Musculoskeletal: neck pain (chronic neck pain but no worse than usual) Skin: no symptoms reported Psychiatric/Neurological: Anxiety; Denies Headache, Denies Numbness Hematologic/Lymphatic: No Symptoms Reported Past Vsparnl-Zfnyex-Rwkveo Hx Past Med/Social Hx: Reviewed Nursing Past Med/Soc Hx Patient Social History 2nd Hand Smoke Exposure: No Recent Hopitalizations: Yes (10/23/18,[facility], 10/27/18, [facility] ) Immunizations Up To Date Date of Pneumonia Vaccine: Dec 14, 2016 Date of Influenza Vaccine: Jul 11, 2018 Seasonal Allergies Seasonal Allergies: No Past Medical History Surgeries: Yes (hernia repair) Gallbladder, Nephrectomy, Orthopedic Respiratory: No Sleep Apnea Currently Using CPAP: No (HASNT USED CPAP FOR 5-6 YEARS) Cardiac: Yes Coronary Artery Disease, Hypertension Neurological: No Genitourinary: No Gastrointestinal: Yes Gastroesophageal Reflux Musculoskeletal: Yes Arthritis Endocrine: No Hypothyroidsim HEENT: No Hearing Impairment: Hard of Hearing, Hearing Aide Right Cancer: No Psychosocial: No Integumentary: No Blood Disorders: No Physical Exam Vital Signs Vital Signs - First Documented 02/11/21 23:11 Temp 36.6 Pulse 93 Resp 18 B/P (MAP) 157/88 (111) Pulse Ox 98 O2 Delivery Room Air Capillary Refill : Height, Weight, BMI Height: 5'7.00" Weight: 129lbs. 0.0oz. 58.763683kd; 20.00 BMI Method: General Appearance: No Apparent Distress HEENT: PERRL/EOMI, Pharynx Normal, Moist Mucous Membranes; No Photophobia Respiratory: Chest Non Tender, Lungs Clear, Normal Breath Sounds, No Accessory Muscle Use, No Respiratory Distress; No Stridor, No Wheezing Cardiovascular: Regular Rate, Rhythm, Normal Peripheral Pulses Neurologic/Psychiatric: Alert, Oriented x3 Skin: Normal Color, Warm/Dry; No Rash Progress/Results/Core Measures Suspected Sepsis SIRS Temperature: Pulse: Respiratory Rate: Blood Pressure / Mean: Results/Orders Vital Signs/I&O 02/11/21 23:11 Temp 36.6 Pulse 93 Resp 18 B/P (MAP) 157/88 (111) Pulse Ox 98 O2 Delivery Room Air Capillary Refill : Progress Note : Progress Note reassured pt and spouse that he had O2 sat of 99 % on room air and he had no stridor, wheezing or signs of airway obstruction. Counseled to hold the Nortriptylline and check with his regular doctor for continued direction on what to do about the medicine. Departure Impression Primary Impression: Swallowing difficulty Qualified Codes: R13.10 - Dysphagia, unspecified Additional Impression: Medication reaction Qualified Codes: T50.905A - Adverse effect of unspecified drugs, medicaments and biological substances, initial encounter Disposition: HOME, SELF-CARE Condition: Stable Departure-Patient Inst. Decision time for Depature: 23:32 Referrals: [facility] (PCP) Primary Care Physician GUY SAUNDERS APRN (Family) Primary Care Physician Patient Instructions: Adverse Drug Reactions, Adult ED Add. Discharge Instructions: Stop taking the Nortriptylline and check with your provider about what they want you to take or do in place of the medicine. You may need to follow up for stretching of your esophagus to help with swallowing. Your oxygen level is 99% and there are no sounds of your airway being obstructed on exam. Check back with clinic for continued concerns. All discharge instructions reviewed with patient and/or family. Voiced understanding. NEPTALI VELÁZQUEZ MD February 11, 2021 23:34
== END 2021-02-11 23:58 | disposition home or self-care (01) ==
LOC: EDUNIT# 23:05 → ER FS 23:08
DX: R13.10 Dysphagia, unspecified (principal); T43.015A Adverse effect of tricyclic antidepressants, initial encounter; K21.9 Gastro-esophageal reflux disease without esophagitis; E03.9 Hypothyroidism, unspecified; I10 Essential (primary) hypertension; Z79.899 Other long term (current) drug therapy; Z79.890 Hormone replacement therapy
CPT/HCPCS: 99281

== ENCOUNTER 2022-01-01 12:10 | Inpatient (IN) | payer MEDICARE, OTHER ==
[~2022-01-01] VITALS: Ht 170.2 cm; Wt 56.8 kg
[2022-01-01] MEDS ORDERED: FAMOTIDINE 20MG/2ML IV (PEPCID) IV STA (12:26)
[2022-01-01] MEDS ORDERED: ASPIRIN 81 MG CHEW (CHILDREN'S ASA) PO ONE (12:30)
[2022-01-01] MEDS ORDERED: LIDOCAINE 2% VISCOUS 15 ML UDC PO ONE (12:30)
[2022-01-01] MEDS ORDERED: ANTACID SUSP 30 ML UDC (MYLANTA) PO ONE (12:30)
[2022-01-01 12:36] LABS: BASOPHILS # (AUTO) 0.1 10^3/uL (0.0-0.1); BASOPHILS % (AUTO) 1 % (0-10); EOSINOPHILS % (AUTO) 0 % (0-10); HEMATOCRIT 46 % (40-54); HEMOGLOBIN 14.8 g/dL (13.3-17.7); LYMPHOCYTES # (AUTO) 1.2 10^3/uL (1.0-4.0); LYMPHOCYTES % (AUTO) 12 % (12-44); MEAN CORPUSCULAR HEMOGLOBIN 31 pg (25-34); MEAN CORPUSCULAR HGB CONC 32 g/dL (32-36); MEAN CORPUSCULAR VOLUME 96 fL (80-99); MONOCYTES # (AUTO) 0.9 10^3/uL (0.0-1.0); MONOCYTES % (AUTO) 9 % (0-12); NEUTROPHILS # (AUTO) 7.7 10^3/uL (1.8-7.8); NEUTROPHILS % (AUTO) 78 % (42-75); PLATELET COUNT 152 10^3/uL (130-400); WHITE BLOOD COUNT 9.9 10^3/uL (4.3-11.0)
--- NOTE | 2022-01-01 12:37 | ED Abdominal Pain ---
General Chief Complaint: Abdominal/GI Problems Stated Complaint: EPIGASTRIC PAIN & NAUSEA Source of Information: Patient, Family Exam Limitations: No Limitations History of Present Illness Date Seen by Provider: Jan 01, 2022 Time Seen by Provider: 12:14 Initial Comments 86-year-old male with past medical history of hypothyroidism coming in with his due to epigastric pain. Started yesterday, has been constant, he calls it a throbbing discomfort. Eating changed at somewhat but he is really unclear. He denies ever having pain like this before. Says he feels mildly short of breath which is not unusual for him. He has not taken any medications for this to see if it helps. Denies any real chest pain, nausea, vomiting, diarrhea, fever, chills, weakness, numbness, or any other concerns. He says he has no cardiac history, never had a blood clot, and normal lungs. He does not smoke. Allergies and Home Medications Allergies Coded Allergies: No Known Allergies (Verified Allergy, Unknown, 10/29/18) nortriptyline (Verified Allergy, Unknown, 01/01/22) Patient Home Medication List Home Medication List Reviewed: Yes Allopurinol (Allopurinol) 300 Mg Tablet, 300 MG PO DAILY, (Reported) Entered as Reported by: SUMMER JOE on 10/29/181330 Ascorbate Calcium (Vitamin C) 500 Mg Tablet, 500 MG PO DAILY, (Reported) Entered as Reported by: SUMMER JOE on 10/29/181330 Azithromycin (Azithromycin) 250 Mg Tablet, 250 MG PO UD Prescribed by: AGATA REYES on 10/27/192000 Calcium Carbonate/Vitamin D3 (Calcium 600 + Vit D 200 Tablet) 1 Each Tablet, 1 EACH PO DAILY, (Reported) Entered as Reported by: SUMMER JOE on 10/29/181330 Cyanocobalamin (Vitamin B-12) (Vitamin B-12) 1,000 Mcg Tablet, 1,000 MCG PO UD, (Reported) Entered as Reported by: SUMMER JOE on 10/29/181330 Levothyroxine Sodium (Levothyroxine Sodium) 50 Mcg Tablet, 50 MCG PO DAILY, (Reported) Entered as Reported by: SUMMER JOE on 10/29/181330 Ondansetron (Ondansetron Odt) 4 Mg Tab.rapdis, 4 MG PO Q6H, (Reported) Entered as Reported by: SUMMER JOE on 10/29/18 133 Pantoprazole Sodium (Pantoprazole Sodium) 40 Mg Tablet.dr, 40 MG PO DAILY, (Reported) Entered as Reported by: SUMMER JOE on 10/29/18 133 Tramadol HCl (Tramadol HCl) 50 Mg Tablet, 50 MG PO Q6H, (Reported) Entered as Reported by: SUMMER JOE on 10/29/181330 Review of Systems Review of Systems Constitutional: No chills, No fever EENTM: No Blurred Vision Respiratory: Denies Cough Cardiovascular: Denies Chest Pain Gastrointestinal: Abdominal Pain; Denies Nausea Genitourinary: No Symptoms Reported Musculoskeletal: no symptoms reported Skin: no symptoms reported Psychiatric/Neurological: No Symptoms Reported Endocrine: No Symptoms Reported Hematologic/Lymphatic: No Symptoms Reported All Other Systems Reviewed Negative Unless Noted: Yes Past Avbwqhs-Ouooma-Ufwqrm Hx Patient Social History Tobacco Use?: No Seasonal Allergies Seasonal Allergies: No Past Medical History Surgeries: Yes (hernia repair) Gallbladder, Nephrectomy, Orthopedic Respiratory: No Sleep Apnea Currently Using CPAP: No (HASNT USED CPAP FOR 5-6 YEARS) Cardiac: Yes Coronary Artery Disease, Hypertension Neurological: No Genitourinary: No Gastrointestinal: Yes Gastroesophageal Reflux Musculoskeletal: Yes Arthritis Endocrine: No Hypothyroidsim HEENT: No Hearing Impairment: Hard of Hearing, Hearing Aide Right Cancer: No Psychosocial: No Integumentary: No Blood Disorders: No Physical Exam Vital Signs Capillary Refill : Height/Weight/BMI Height: 5'7.00" Weight: 129lbs. 0.0oz. 58.897805dz; 57.00 BMI Method: General Appearance: WD/WN, no apparent distress HEENT: PERRL/EOMI, normal ENT inspection, pharynx normal Neck: non-tender, full range of motion, supple, normal inspection Respiratory: chest non-tender, lungs clear, normal breath sounds, no respiratory distress, no accessory muscle use Cardiovascular: regular rate, rhythm, no edema, no murmur Gastrointestinal: normal bowel sounds, soft; No distended, No guarding, No rebound; tenderness (Mild epigastric tenderness) Extremities: normal range of motion, non-tender, normal inspection, no pedal edema, no calf tenderness, normal capillary refill Back: normal inspection, no CVA tenderness, no vertebral tenderness Neurologic/Psychiatric: no motor/sensory deficits, alert, normal mood/affect Skin: normal color, warm/dry Lymphatic: no adenopathy Focused Exam Lactate Level 01/01/22 12:41: Lactic Acid Level 1.75 Lactic Acid Level Laboratory Tests Test 01/01/22 12:41 Lactic Acid Level 1.75 MMOL/L (0.50-2.00) Progress/Results/Core Measures Results/Orders Lab Results Laboratory Tests Test 01/01/22 12:28 01/01/22 12:41 Range/Units White Blood Count 9.9 4.3-11.0 10^3/uL Red Blood Count 4.74 4.30-5.52 10^6/uL Hemoglobin 14.8 13.3-17.7 g/dL Hematocrit 46 40-54 % Mean Corpuscular Volume 96 80-99 fL Mean Corpuscular Hemoglobin 31 25-34 pg Mean Corpuscular Hemoglobin Concent 32 32-36 g/dL Red Cell Distribution Width 13.2 10.0-14.5 % Platelet Count 152 130-400 10^3/uL Mean Platelet Volume 10.0 9.0-12.2 fL Immature Granulocyte % (Auto) 1 % Neutrophils (%) (Auto) 78 H 42-75 % Lymphocytes (%) (Auto) 12 12-44 % Monocytes (%) (Auto) 9 0-12 % Eosinophils (%) (Auto) 0 0-10 % Basophils (%) (Auto) 1 0-10 % Neutrophils # (Auto) 7.7 1.8-7.8 10^3/uL Lymphocytes # (Auto) 1.2 1.0-4.0 10^3/uL Monocytes # (Auto) 0.9 0.0-1.0 10^3/uL Eosinophils # (Auto) 0.0 0.0-0.3 10^3/uL Basophils # (Auto) 0.1 0.0-0.1 10^3/uL Immature Granulocyte # (Auto) 0.1 0.0-0.1 10^3/uL Prothrombin Time 13.4 12.2-14.7 SEC INR Comment 1.0 0.8-1.4 Activated Partial Thromboplast Time 35 24-35 SEC Sodium Level 139 135-145 MMOL/L Potassium Level 4.5 3.6-5.0 MMOL/L Chloride Level 101 98-107 MMOL/L Carbon Dioxide Level 26 21-32 MMOL/L Anion Gap 12 5-14 MMOL/L Blood Urea Nitrogen 23 H 7-18 MG/DL Creatinine 1.46 H 0.60-1.30 MG/DL Estimat Glomerular Filtration Rate 47 BUN/Creatinine Ratio 16 Glucose Level 136 H 70-105 MG/DL Calcium Level 10.1 8.5-10.1 MG/DL Corrected Calcium 10.1 8.5-10.1 MG/DL Magnesium Level 1.9 1.6-2.4 MG/DL Total Bilirubin 0.6 0.1-1.0 MG/DL Aspartate Amino Transf (AST/SGOT) 101 H 5-34 U/L Alanine Aminotransferase (ALT/SGPT) 33 0-55 U/L Alkaline Phosphatase 119 40-136 U/L Troponin I 16.03 *H <0.30 NG/ML Total Protein 7.7 6.4-8.2 GM/DL Albumin 4.0 3.2-4.5 GM/DL Lactic Acid Level 1.75 0.50-2.00 MMOL/L My Orders Orders - BRAYAN BRAGA MD Cbc With Automated Diff (01/01/22 12:26) Magnesium (01/01/22 12:26) Chest 1 View Ap/Pa Only (01/01/22 12:26) Ekg Tracing (01/01/22 12:26) Comprehensive Metabolic Panel (01/01/22 12:26) Protime With Inr (01/01/22 12:26) Partial Thromboplastin Time (01/01/22 12:26) O2 (01/01/22 12:26) Monitor-Rhythm Ecg Trace Only (01/01/22 12:26) Aspirin Chewable Tablet (Baby Aspirin Ch (01/01/22 12:30) Ed Iv/Invasive Line Start (01/01/22 12:26) Troponin I Fs (01/01/22 12:26) Probnp Fs (01/01/22 12:26) Lidocaine 2% Viscous 15 Ml (Xylocaine Vi (01/01/22 12:30) Antacid Suspension (Mylanta Suspension (01/01/22 12:30) Famotidine Injection (Pepcid Injection) (01/01/22 12:26) Lactic Acid Analyzer (01/01/22 12:37) Magnesium (01/01/22 12:39) Ekg Tracing (01/01/22 12:59) Enoxaparin Injection (Lovenox Injection (01/01/22 13:15) Nitroglycerin Ointment (Nitrobid Ointme (01/01/22 13:15) Medications Given in ED Current Medications Medications Dose Ordered Sig/Dulce Route Start Time Stop Time Status Last Admin Dose Admin Al Hydrox/Mg Hydrox/Simethicone 30 ml ONCE ONCE PO 01/01/22 12:30 01/01/22 12:31 DC 01/01/22 12:43 30 ML Aspirin 324 mg ONCE ONCE PO 01/01/22 12:30 01/01/22 12:31 DC 01/01/22 12:43 324 MG Lidocaine HCl 15 ml ONCE ONCE PO 01/01/22 12:30 01/01/22 12:31 DC 01/01/22 12:43 15 ML Progress Progress Note : Progress Note 86-year-old male with above history coming in due to chest pain/epigastric pain. ABCs were intact and vitals were stable on presentation. Physical exam with some epigastric tenderness. He was immediately given aspirin with an EKG showing right bundle branch block and left anterior fascicular block similar to prior. He does have some slight T wave inversions in lead V1 and V2 but no STEMI. An IV was placed and basic labs obtained including a troponin which was positive at 16. I immediately contacted Dr. Concepcion, overnight babysitter on-call, and he says he will take the patient to the [facility] today. We will give him Lovenox and Nitropaste. I then contacted Dr. Bucio who will admit the patient to the intensive care unit for further evaluation and management under inpatient status. Initial ECG Impression Date: Jan 01, 2022 Initial ECG Impression Time: 12:28 Initial ECG Rate: 71 Initial ECG Rhythm: Normal Sinus Comment Wide QRS with a right bundle branch block and left anterior fascicular block, there is some artifact making it difficult to interpret from there, but no STEMI EKG : EKG Time: 13:03 Rate: 77 Rhythm: Normal Sinus Comment Slight T wave inversions in V1 and V2, otherwise similar to prior EKG Diagnostic Imaging Diagonstic Imaging: Xray (chest) Comments [facility] [place] NAME: MARK HILTON [facility] REC#: [id number] PT STATUS: REG ER : 1935 PHYSICIAN: BRAYAN BRAGA MD ADMIT DATE: 01/01/22/ER FS Draft Date of Exam:01/01/22 CHEST 1 VIEW AP/PA ONLY INDICATION: Chest pain. COMPARISON: 10/27/2019. DISCUSSION: A single portable upright view of the chest was obtained. Changes of chronic lung disease are noted. No focal consolidation. No pleural fluid or pneumothorax. Normal heart size. No osseous abnormality. IMPRESSION: No acute cardiopulmonary process. Dictated on workstation # [id number] Dict: 01/01/22 1238 Trans: 01/01/22 1250 [id number] Interpreted by: AUSTEN MUNOZ MD Electronically signed by: Departure Impression Primary Impression: NSTEMI (non-ST elevated myocardial infarction) Disposition: 30 STILL A PATIENT Condition: Stable Admissions Decision to Admit Reason: Admit from ER (General) Decision to Admit/Date: Jan 01, 2022 Time/Decision to Admit Time: 13:00 Transfer Method of Transfer: EMS Departure-Patient Inst. Referrals: GUY SAUNDERS APRN (PCP) Primary Care Physician [facility] (Family) Primary Care Physician BRAYAN BRAGA MD Jan 01, 2022 12:36
[2022-01-01 12:43] LABS: PROTHROMBIN TIME PATIENT 13.4 SEC (12.2-14.7)
--- NOTE | 2022-01-01 12:50 | Diagnostic Imaging Report ---
INDICATION: Chest pain. COMPARISON: 10/27/2019. DISCUSSION: A single portable upright view of the chest was obtained. Changes of chronic lung disease are noted. No focal consolidation. No pleural fluid or pneumothorax. Normal heart size. No osseous abnormality. IMPRESSION: No acute cardiopulmonary process. Dictated by: Dictated on workstation # [id number]
[2022-01-01 12:54] LABS: BILIRUBIN,TOTAL 0.6 MG/DL (0.1-1.0); CALCIUM 10.1 MG/DL (8.5-10.1); CREATININE SERUM 1.46 MG/DL (0.60-1.30); MAGNESIUM 1.9 MG/DL (1.6-2.4); POTASSIUM 4.5 MMOL/L (3.6-5.0); TOTAL PROTEIN 7.7 GM/DL (6.4-8.2)
[2022-01-01] MEDS ORDERED: ENOXAPARIN 60 MG/0.6 ML (LOVENOX) SYR SC ONE (13:15)
[2022-01-01] MEDS ORDERED: NITROGLYCERIN 2% OINT 1 GM UNIT DOSE PACKET TOP ONE (13:15)
[2022-01-01 14:45] VITALS: BP 122/78
[2022-01-01] MEDS ORDERED: diphenhydrAMINE 25 MG TAB (BENADRYL) PO PRN (14:45)
[2022-01-01] MEDS ORDERED: MELATONIN 3 MG TABLET PO PRN (14:45)
[2022-01-01] MEDS ORDERED: polyethylene glycoL POWDER 17 GM (MIRALAX) PACK PO PRN (14:45)
[2022-01-01] MEDS ORDERED: diphenhydrAMINE 50 MG/ML INJ (BENADRYL) IVP PRN (14:45)
[2022-01-01] MEDS ORDERED: inSUlin ASPART (NovoLOG) 1 UNIT/0.01 ML (CHARGE PER UNIT) SC PRN (14:45)
[2022-01-01] MEDS ORDERED: BISACODYL 10 MG SUPP (DULCOLAX) PR PRN (14:45)
[2022-01-01] MEDS ORDERED: ONDANSETRON 4 MG/2 ML (SDV) Z0FRAN IV PRN (14:45)
[2022-01-01] MEDS ORDERED: NITROGLYCERIN 0.4 MG SL TABS BTL 25'S SL PRN (14:45)
[2022-01-01] MEDS ORDERED: morphine INJ 4 MG/ML 1 ML (VIAL/SYRINGE) IV PRN (14:45)
[2022-01-01] MEDS ORDERED: ONDANSETRON 4 MG (ZOFRAN) ORAL DISSOLVE TAB PO PRN (14:45)
[2022-01-01] MEDS ORDERED: PATIENT MAY USE OWN MEDS, ALL PO SCH ×2 (14:45)
[2022-01-01] MEDS ORDERED: ANTACID SUSP 30 ML UDC (MYLANTA) PO PRN (14:45)
[2022-01-01 15:00] VITALS: BP 125/77
[2022-01-01] MEDS ORDERED: ENOXAPARIN 60 MG/0.6 ML (LOVENOX) SYR SC SCH (15:15)
[2022-01-01] MEDS ORDERED: NS IV 1000 ML 1,000 ML IV ONE (15:30)
[2022-01-01] MEDS ORDERED: CATHETER FLUSH 10 ML SYR IV PRN (15:30)
[2022-01-01] MEDS ORDERED: GABA-486 PO (15:38)
[2022-01-01] MEDS ORDERED: ASPI-999 PO (15:38)
--- NOTE | 2022-01-01 15:42 | Consultation-Cardiology ---
HPI-Cardiology Cardiology Consultation: Date of Consultation 01/01/22 Date of Admission 01/01/22 Attending Physician Radha Bucio DO Admitting Physician Courtney Lewis Aprn Consulting Physician AUSTEN GOMEZ JR, MD HPI: Time Seen by a Provider: 15:36 Chief Complaint: Reason for consultation: Non-ST elevation myocardial infarction I had the pleasure of seeing Emiliano on the cardiac stepdown unit at [facility] in [place], [place] this afternoon. He has no known history of coronary artery disease. Yesterday he was doing some light work out in his yard and developed substernal chest tightness. He just kept going about his work and did not seek medical attention. When he finally finished, he went into his house and as he was walking his left knee gave out. Fortunately, he was able to catch his balance and did not fall down. He did not have lightheadedness or syncope. He told his that he had some upset stomach and just wanted to lay down. He took some Pepto-Bismol. He denies any other complaints at that time. He did not seek medical attention. Then this morning he was still having epigastric discomfort and tightness. He told his to bring him to [place] emergency room for evaluation. During his evaluation there, he was found to have an elevated troponin level and he was then transferred to our hospital for further treatment and diagnosis. When I spoke to the patient he stated that he had no further chest or epigastric discomfort. He does not recall having this sort of discomfort in the past. He states that he is otherwise healthy and does not take any prescription medications. He denies dyspnea, paroxysmal nocturnal dyspnea, orthopnea, palpitations, or ankle edema. Because of the non-ST elevation myocardial infarction, a cardiology consultation was requested. Certain portions of this document may have been dictated utilizing voice recognition technology. Inherent to this technology, typographical and grammatical errors may exist. As much as I am diligent to identify and correct these mistakes, some errors may remain in the document. Review of Systems-Cardiology Review of Systems Other comments Review of 10 organ systems is as per the history of present illness, otherwise negative. All Other Systems Reviewed Negative Unless Noted: Yes APS-Utnedy-Sjtpvv Hx Patient Social History Marrital Status: 2nd Hand Smoke Exposure: No Have you traveled recently?: No Alcohol Use?: No Pt feels they are or have been: No Immunizations Up To Date Date of Pneumonia Vaccine: Dec 14, 2016 Date of Influenza Vaccine: Jul 11, 2018 Past Medical History PMH As described under Assessment. Family Medical History Family Medical History: The patient does not know of any family history of premature coronary artery disease in first-degree relatives. Allergies and Home Medications Allergies Coded Allergies: nortriptyline (Verified Allergy, Unknown, 01/01/22) Patient Home Medication List Home Medication List Reviewed: Yes Allopurinol (Allopurinol) 300 Mg Tablet, 300 MG PO DAILY, (Reported) Entered as Reported by: SUMMER JOE on 10/29/181330 Ascorbate Calcium (Vitamin C) 500 Mg Tablet, 500 MG PO DAILY, (Reported) Entered as Reported by: SUMMER JOE on 10/29/181330 Azithromycin (Azithromycin) 250 Mg Tablet, 250 MG PO UD Prescribed by: AGATA REYES on 10/27/192000 Calcium Carbonate/Vitamin D3 (Calcium 600 + Vit D 200 Tablet) 1 Each Tablet, 1 EACH PO DAILY, (Reported) Entered as Reported by: SUMMRE JOE on 10/29/181330 Cyanocobalamin (Vitamin B-12) (Vitamin B-12) 1,000 Mcg Tablet, 1,000 MCG PO UD, (Reported) Entered as Reported by: SUMMER JOE on 10/29/181330 Levothyroxine Sodium (Levothyroxine Sodium) 50 Mcg Tablet, 50 MCG PO DAILY, (Reported) Entered as Reported by: SUMMER JOE on 10/29/181330 Ondansetron (Ondansetron Odt) 4 Mg Tab.rapdis, 4 MG PO Q6H, (Reported) Entered as Reported by: SUMMER JOE on 10/29/181330 Pantoprazole Sodium (Pantoprazole Sodium) 40 Mg Tablet.dr, 40 MG PO DAILY, (Reported) Entered as Reported by: SUMMER JOE on 10/29/181330 Tramadol HCl (Tramadol HCl) 50 Mg Tablet, 50 MG PO Q6H, (Reported) Entered as Reported by: SUMMER JOE on 10/29/181330 Exam Vital Signs Vital Signs Date Time Temp Pulse Resp B/P (MAP) Pulse Ox O2 Delivery O2 Flow Rate FiO2 01/01/22 15:10 71 01/01/22 14:00 36.5 21 136/76 98 Room Air Physical Exam General: Alert. No acute distress. Well nourished and appears stated age. Eye: Extraocular movements are intact. Conjunctivae are clear. There are no xanthelasma. HENT: Normocephalic. Atraumatic. Carotid pulsations 2/2 without bruits. Neck: Jugular venous pressure does not appear elevated. No thyromegaly appreciated. Respiratory: Lungs are clear to auscultation. Respirations are non-labored. Breath sounds are equal. Symmetrical chest wall expansion. Cardiovascular: Normal rate. Regular rhythm. No murmur. No gallop. Point of maximal impulse is not appear displaced. Good pulses equal in all extremities. No edema. Gastrointestinal: Soft. Normal bowel sounds. Skin: Skin turgor is normal. There is no pallor. Musculoskeletal: No kyphosis or scoliosis appreciated. Neurologic: Alert and oriented to person, place, time. Cranial nerves 3-12 appear grossly intact. The patient has good motor tone strength in the upper and lower extremities bilaterally. Psychiatric: Cooperative. Appropriate mood & affect. Labs Laboratory Tests Test 01/01/22 12:28 01/01/22 12:41 Range/Units White Blood Count 9.9 4.3-11.0 10^3/uL Red Blood Count 4.74 4.30-5.52 10^6/uL Hemoglobin 14.8 13.3-17.7 g/dL Hematocrit 46 40-54 % Mean Corpuscular Volume 96 80-99 fL Mean Corpuscular Hemoglobin 31 25-34 pg Mean Corpuscular Hemoglobin Concent 32 32-36 g/dL Red Cell Distribution Width 13.2 10.0-14.5 % Platelet Count 152 130-400 10^3/uL Mean Platelet Volume 10.0 9.0-12.2 fL Immature Granulocyte % (Auto) 1 % Neutrophils (%) (Auto) 78 H 42-75 % Lymphocytes (%) (Auto) 12 12-44 % Monocytes (%) (Auto) 9 0-12 % Eosinophils (%) (Auto) 0 0-10 % Basophils (%) (Auto) 1 0-10 % Neutrophils # (Auto) 7.7 1.8-7.8 10^3/uL Lymphocytes # (Auto) 1.2 1.0-4.0 10^3/uL Monocytes # (Auto) 0.9 0.0-1.0 10^3/uL Eosinophils # (Auto) 0.0 0.0-0.3 10^3/uL Basophils # (Auto) 0.1 0.0-0.1 10^3/uL Immature Granulocyte # (Auto) 0.1 0.0-0.1 10^3/uL Prothrombin Time 13.4 12.2-14.7 SEC INR Comment 1.0 0.8-1.4 Activated Partial Thromboplast Time 35 24-35 SEC Sodium Level 139 135-145 MMOL/L Potassium Level 4.5 3.6-5.0 MMOL/L Chloride Level 101 98-107 MMOL/L Carbon Dioxide Level 26 21-32 MMOL/L Anion Gap 12 5-14 MMOL/L Blood Urea Nitrogen 23 H 7-18 MG/DL Creatinine 1.46 H 0.60-1.30 MG/DL Estimat Glomerular Filtration Rate 47 BUN/Creatinine Ratio 16 Glucose Level 136 H 70-105 MG/DL Calcium Level 10.1 8.5-10.1 MG/DL Corrected Calcium 10.1 8.5-10.1 MG/DL Magnesium Level 1.9 1.6-2.4 MG/DL Total Bilirubin 0.6 0.1-1.0 MG/DL Aspartate Amino Transf (AST/SGOT) 101 H 5-34 U/L Alanine Aminotransferase (ALT/SGPT) 33 0-55 U/L Alkaline Phosphatase 119 40-136 U/L Troponin I 16.03 *H <0.30 NG/ML Pro-B-Type Natriuretic Peptide 2740.0 H <75.0 PG/ML Total Protein 7.7 6.4-8.2 GM/DL Albumin 4.0 3.2-4.5 GM/DL Lactic Acid Level 1.75 0.50-2.00 MMOL/L ECG Impression ECG Comment Sinus rhythm with left anterior hemiblock, right bundle branch block and borderline inferior ST elevation patient with T wave inversion, possibly due to recent inferior myocardial infarction. Diagnosis/Problems Diagnosis/Problems (1) Non-ST elevation myocardial infarction (NSTEMI), initial care episode Assessment & Plan: He appears to be suffering a non-ST elevation myocardial infarction. Based upon his electrocardiograms, I suspect this may be involving the right coronary artery. He was still having chest discomfort at the outside hospital. He seems to be improved now. I suspect this may have started yesterday. In light of the ongoing chest discomfort just 1 hour earlier, I recommend further evaluation with a cardiac catheterization. He was treated with aspirin and full dose enoxaparin at the outside emergency room. I explained the benefits and risks of the procedure to the patient and his and both are in agreement to proceed. I will also plan to start him on low-dose beta-vince and high-dose statin medication. (2) Stage 3 chronic kidney disease Assessment & Plan: He appears to have stage III chronic kidney disease. He will be given vigorous intravenous fluid to help decrease the risk of contrast-induced nephrotoxicity. 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 This has resulted in chronic kidney disease. We will proceed as above. (4) Gouty arthritis Assessment & Plan: There are no cardiac contraindications to continuing the patient's allopurinol. (5) Acquired hypothyroidism Assessment & Plan: Continue thyroid medication. I ordered a TSH level for the morning. AUSTEN GOMEZ JR, MD Jan 01, 2022 15:42
--- NOTE | 2022-01-01 15:47 | Pre-Op Note & Conscious Sedat ---
Pre-Operative Progress Note H&P Reviewed The H&P was reviewed, patient examined and no changes noted. Date H&P Reviewed: Jan 01, 2022 Time H&P Reviewed: 15:47 Pre-Op Diagnosis: NSTEMI Conscious Sedation Pre-Proced ASA Score 3 For ASA 3 and 4: Consider anesthesia and medical clearance. Also, for patients with a history of failed moderate sedation consider anesthesia. Airway Lungs Heart ASA score ASA 1: a normal healthy patient ASA 2: a patient with a mild systemic disease (mid diabetes, controlled hypertension, obesity ASA 3: a patient with a severe systemic disease that limits activity (angina, COPD, prior Myocardial infarction) ASA 4: a patient with an incapacitating disease that is a constant threat to life (CHF, renal failure) ASA 5: a moribund patient not expected to survive 24 hrs. (ruptured aneurysm) ASA 6: a declared brain- patient whose organs are being harvested. For emergent operations, add the letter E after the classification Mallampati Classification Grade 1 Sedation Plan Analgesia, Amnesia, Plan communicated to team members, Discussed options with patient/fam, Discussed risks with patient/fam The patient is an appropriate candidate to undergo the planned procedure, sedation, and anesthesia. The patient immediately re-assessed prior to indication. AUSTEN GOMEZ JR, MD Jan 01, 2022 15:47
[2022-01-01] MEDS: NS IV 1000 ML 1,000 ML IV SCH ×2 (15:53→17:00)
[2022-01-01 16:05] VITALS: BP 136/76
[2022-01-01] MEDS ORDERED: fentaNYL INJ 100 MCG/2 ML AMP ONE (16:07)
[2022-01-01] MEDS ORDERED: VERAPAMIL 5 MG/2 ML (CALAN) VIAL IV ONE (16:07)
[2022-01-01] MEDS ORDERED: LIDOCAINE 2% 20 ML (XYLOCAINE) VIAL ONE (16:07)
[2022-01-01] MEDS ORDERED: MIDAZOLAM 5 MG/5 ML (VERSED) VIAL ONE (16:07)
[2022-01-01] MEDS ORDERED: HEParin (CATH LAB) 2,000 ML IV ONE (16:07)
[2022-01-01] MEDS ORDERED: HEParin 1000 UNIT/ML (10ML VIAL) FOR BOLUS ONE (16:07)
[2022-01-01] MEDS ORDERED: NS IV 1000 ML 1,000 ML ONE (16:08)
[2022-01-01] MEDS ORDERED: NITRO DRIP 25000 MCG/D5W 250 ML IV ONE (16:08)
[2022-01-01] MEDS ORDERED: RT-ALBUTEROL SULF 2.5 MG/3 ML PRE-MIX VIAL INH PRN (16:15)
[2022-01-01] MEDS ORDERED: TICAGRELOR 90 MG TABLET (BRILINTA) PO ONE (17:05)
[2022-01-01] MEDS ORDERED: ADENOSINE 6 MG/2 ML (ADENOCARD) VIAL IV ONE (17:06)
[2022-01-01] MEDS ORDERED: NS (IVPB) 250 ML ONE (17:06)
--- NOTE | 2022-01-01 17:48 | Cardiac Cath Report ---
CARDIAC CATHETERIZATION DATE OF PROCEDURE: 01/01/2022 INDICATION: NSTEMI. HISTORY: The patient is a 86 year old male with no previously known history of coronary artery disease. 24 hours prior to admission he started developing i ntermittent epigastric and chest discomfort. This morning he presented to an outside emergency room and was found to have a markedly elevated troponin level with inferior T wave inversion. As such, he was transferred to [facility] in [place], [place] for urgent cardiac catheterization. PROCEDURES PERFORMED: 1. Left heart catheterization with hemodynamic measurements. 2. Diagnostic te-moak coronary angiography. 3. Drug-eluting stent placement to proximal right coronary artery for acute non-ST elevation myocardial infarction. PROCEDURE DESCRIPTION: After informed consent and in the fasting state, left heart catheterization was performed through the right radial artery utilizing a 6 Tajik system by percutaneous approach. Standard 5 Tajik Jacinto catheters were utilized for the diagnostic portion of the procedure. A 6 Tajik FL 4 guide catheter was utilized for the percutaneous coronary intervention. All catheters were exchanged over a guidewire. Following the procedure, a vascular band was applied to the radial artery access site and the sheath was removed with good hemostasis. RESULTS: HEMODYNAMICS: The aortic pressure was 81/45 mmHg. The left ventricular pressure was 79/0 mmHg with a left ventricular end-diastolic pressure of 10 mmHg. There was no significant pressure gradient upon pullback across aortic valve. During the percutaneous coronary intervention, the patient was started on intravenous dopamine. At the conclusion of the intervention, the dopamine was discontinued and his blood pressure had improved. CORONARY ANGIOGRAPHY: The coronary arteries were diffusely small in caliber. Left main coronary artery: Free of significant disease. Left anterior descending coronary artery: Free of significant disease. Left circumflex coronary artery: This was essentially a large first obtuse marginal branch which contained an 80% stenosis in its proximal portion and a 70% stenosis in its midportion with SUSANA-2 flow. Right coronary artery: Dominant and totally occluded (100%) proximally with e vidence of thrombus and SUSANA 0 flow. PERCUTANEOUS CORONARY INTERVENTION: Percutaneous coronary intervention was carried out on the proximal right coronary artery through a 6 Tajik FL 4 guide catheter. The lesion was successfully crossed with a Whisper medium support guidewire. I subsequently performed coronary angioplasty with a 2.5 x 12 mm Trek balloon at a pressure of 6-8 abigail for multiple inflations. There appeared to be no reflow in the distal vessel. Intracoronary nitroglycerin and intracoronary adenosine were administered. There was still evidence of no reflow. I subsequently performed aspiration thrombectomy with a Pronto LP device for 2 runs. During the second run, I administered additional intracoronary adenosine through the thrombectomy catheter directly into the distal vessel. Flow was then improved. I subsequently deployed a 2.75 x 28 mm drug-eluting Xience Skypoint stent in the proximal vessel at a pressure of 16 abigail. Following stent placement, there was 0% residual stenosis with SUSANA-3 flow at the site of the lesion but with somewhat sluggish flow in the very distal branches. IMPRESSION: 1. Cardiogenic shock requiring brief infusion of vasopressors during the percutaneous intervention. 2. Total thrombotic occlusion of the proximal right coronary artery. This was the ischemia related vessel for the acute non-ST elevation myocardial infarction. 3. Status post drug-eluting stent placement to the proximal right coronary artery with a 2.75 x 28 mm Xience Skypoint stent with 0% residual stenosis and SUSANA-3 flow. 4. There is severe residual disease in the left circumflex coronary system that will need to be addressed at a later point in time. I did not attempt to intervene on this vessel today because the patient was becoming very restless and we needed to finish the procedure. 5. I will obtain an echocardiogram in the morning to assess his left ventricular function. Certain portions of this document may have been dictated utilizing voice recognition technology. Inherent to this technology, typographical and grammatical errors may exist. As much as I am diligent to identify and correct these mistakes, some errors may remain in the document. AUSTEN GOMEZ JR, MD Jan 01, 2022 17:48
[2022-01-01] MEDS ORDERED: meTOprolol 5 MG/5 ML (LOPRESSOR) VIAL IV SCH (18:00)
[2022-01-01 19:13] VITALS: BP 107/72
[2022-01-01] MEDS ORDERED: DOPamine DRIP 250 ML IV ONE (20:00)
[2022-01-01] MEDS: TICAGRELOR 90 MG TABLET (BRILINTA) PO SCH (21:00)
[2022-01-01] MEDS: DOCUSATE SODIUM 100 MG (COLACE) CAP PO SCH (21:00)
[2022-01-01] MEDS: ROSUVASTATIN 20 MG (CRESTOR) TABLET PO SCH (21:00)
[2022-01-01] MEDS ORDERED: WATER (STERILE) FOR INJ 10 ML BTL INJ SCH ×2 (22:00)
[2022-01-01] MEDS ORDERED: LORazepam INJ 2 MG/ML (ATIVAN) VIAL IVP PRN (22:00)
[2022-01-01] MEDS ORDERED: ZIPRASIDONE 20 MG INJ (GEODON) VIAL IM ONE ×2 (22:00→22:02)
[2022-01-01 23:15] VITALS: BP 91/31
[2022-01-01] MEDS ORDERED: ATROPINE INJECTION 1 MG/10 ML SYR (ABBOTT) ONE (23:31)
[2022-01-02] VITALS (24 sets, daily range): BP systolic 61–171; BP diastolic 41–90
[2022-01-02] MEDS: DOPamine DRIP 250 ML IV SCH (00:17)
--- NOTE | 2022-01-02 01:06 | Tele-ICU Progress Note ---
Progress Note 86M with HLD, solitary kidney initially admitted to cardiac step-down yesterday for NSTEMI. 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 There was severe residual disease in the left circumflex, which was not the culprit lesion. Patient was getting restless and further intervention was deferred to another time. Noted to have cardiogenic shock during the procedure, requiring vasopressor support. Weaned off prior to completion of the procedure. This evening, patient has had 2 issues prompting an upgrade in care. Patient became extremely restless, agitated, confused. He was attempting to leave, did not seem to know he was in the hospital. He was given geodon which was briefly effective, now again very agitated and restless. Patient also became bradycardic at 36 prompting 0.5 mg atropine at 2330. Required second dose at midnight. On my initial assement about 5 minutes after second atropine administration HR 52, BP83/53, then 70/50, then 55/48 within about 5 minutes. Patient appears to have intermittent apnea. Not clearly an obstructive pattern. - Bradycardia: Cardiology has been updated, Possibly secondary to coreg, HR was only 70s before receiving first dose tonight. Will start dopamine for HR and BP support. Difficult to discern from tele - looks most like a junctional bradycardia. Attempting to obtain EKG but patient will not stop moving. Will send electrolytes. - AMS/delirium: secondary to critical illness vs sedating rx vs unknown stressor (ie undiagnosed sepsis). Most likely related to procedural sedation, will likely worsen after atropine administration. Unable to start precedex due to bra dycardia. Already received geodon. Avoid other deliriogenic rx, especially benzos and benadryl if able. Will send sepsis workup, repeat labs, abg. - NSTEMI: intervention as above. Repeat troponin is uptrending. Will repeat with now labs. - apnea: cpap, abg Focused Exam Lactate Level 01/01/22 12:41: Lactic Acid Level 1.75 Height, Weight, BMI Height: 5'7.00" Weight: 129lbs. 0.0oz. 58.560556uf; 19.60 BMI Method: BREN TOURE MD Jan 02, 2022 01:06
[2022-01-02 01:31] LABS: BASOPHILS % (AUTO) 0 % (0-10); HEMATOCRIT 41 % (40-54); HEMOGLOBIN 13.3 g/dL (13.3-17.7); LYMPHOCYTES # (AUTO) 0.8 10^3/uL (1.0-4.0); MEAN CORPUSCULAR HEMOGLOBIN 32 pg (25-34); MEAN CORPUSCULAR HGB CONC 33 g/dL (32-36); MEAN CORPUSCULAR VOLUME 98 fL (80-99); MEAN PLATELET VOLUME 10.6 fL (9.0-12.2)
[2022-01-02 01:33] LABS: EOSINOPHILS % (AUTO) 0 % (0-10); LYMPHOCYTES % (AUTO) 7 % (12-44); MONOCYTES # (AUTO) 0.7 10^3/uL (0.0-1.0); MONOCYTES % (AUTO) 6 % (0-12); NEUTROPHILS # (AUTO) 9.4 10^3/uL (1.8-7.8); NEUTROPHILS % (AUTO) 85 % (42-75); PLATELET COUNT 141 10^3/uL (130-400)
[2022-01-02 01:39] LABS: ALBUMIN 3.1 GM/DL (3.2-4.5)
[2022-01-02 01:40] LABS: POTASSIUM 5.2 MMOL/L (3.6-5.0)
[2022-01-02 01:41] LABS: CALCIUM 8.4 MG/DL (8.5-10.1)
[2022-01-02 01:44] LABS: BILIRUBIN,TOTAL 1.6 MG/DL (0.1-1.0)
[2022-01-02 01:45] LABS: PHOSPHORUS 3.5 MG/DL (2.3-4.7)
[2022-01-02 01:46] LABS: CREATININE SERUM 1.78 MG/DL (0.60-1.30)
[2022-01-02 01:48] LABS: MAGNESIUM 1.8 MG/DL (1.6-2.4)
[2022-01-02 01:54] LABS: BAND NEUTROPHILS 7 %; LYMPHOCYTES % (MANUAL) 7 %; MONOCYTES % (MANUAL) 9 %; NEUTROPHILS % (MANUAL) 77 %
[2022-01-02 01:55] LABS: RBC MORPH NORMAL
[2022-01-02 02:55] LABS: BILIRUBIN,URINE NEGATIVE (NEGATIVE); CLARITY,URINE CLEAR; COLOR,URINE ORANGE; GLUCOSE, URINE (UA) NEGATIVE (NEGATIVE); KETONES,URINE NEGATIVE (NEGATIVE); LEUKOCYTE ESTERASE ,URINE NEGATIVE (NEGATIVE); NITRITE,URINE NEGATIVE (NEGATIVE); PH,URINE 5.5 (5-9); PROTEIN,URINE 1+ (NEGATIVE)
[2022-01-02 03:11] LABS: ABG BASE EXCESS -5.7 MMOL/L (-2.5-2.5); ABG OXYGEN SATURATION 98 % (94-100); ABG PCO2 37 MMHG (35-45); ABG PO2 128 MMHG (79-93); ABG TCO2 20.3 MMOL/L (21.0-31.0)
[2022-01-02 03:13] LABS: ABG PH 7.33 (7.37-7.43)
[2022-01-02 03:14] LABS: ALLENS TEST YES-POS; INSPIRED O2 6L; PATIENT TEMP 36.4; VENTILATOR NO
[2022-01-02 03:15] LABS: BACTERIA,URINE TRACE /HPF; RBC,URINE 25-50 /HPF
[2022-01-02] MEDS: NS IV 1000 ML 1,000 ML IV SCH ×2 (03:47→11:01)
[2022-01-02 04:41] LABS: BASOPHILS % (AUTO) 0 % (0-10); EOSINOPHILS % (AUTO) 0 % (0-10); LYMPHOCYTES # (AUTO) 0.9 10^3/uL (1.0-4.0)
[2022-01-02 04:43] LABS: HEMATOCRIT 40 % (40-54); LYMPHOCYTES % (AUTO) 7 % (12-44); MEAN CORPUSCULAR HEMOGLOBIN 31 pg (25-34); MEAN CORPUSCULAR HGB CONC 32 g/dL (32-36); MEAN CORPUSCULAR VOLUME 98 fL (80-99); MEAN PLATELET VOLUME 11.2 fL (9.0-12.2); MONOCYTES # (AUTO) 1.1 10^3/uL (0.0-1.0); MONOCYTES % (AUTO) 9 % (0-12); NEUTROPHILS # (AUTO) 9.7 10^3/uL (1.8-7.8); NEUTROPHILS % (AUTO) 83 % (42-75); PLATELET COUNT 139 10^3/uL (130-400); WHITE BLOOD COUNT 11.7 10^3/uL (4.3-11.0)
[2022-01-02 04:54] LABS: POTASSIUM 6.2 MMOL/L (3.6-5.0)
[2022-01-02 04:56] LABS: CALCIUM 8.4 MG/DL (8.5-10.1)
[2022-01-02 04:57] LABS: TOTAL PROTEIN 5.9 GM/DL (6.4-8.2)
[2022-01-02 04:59] LABS: BILIRUBIN,TOTAL 1.2 MG/DL (0.1-1.0)
[2022-01-02 05:01] LABS: CREATININE SERUM 1.86 MG/DL (0.60-1.30)
[2022-01-02 05:03] LABS: MAGNESIUM 1.9 MG/DL (1.6-2.4)
[2022-01-02] MEDS: KCL 20 MEQ TAB (K-DUR) PO SCH (05:36)
[2022-01-02] MEDS: MAGNESIUM 1 GM/100 ML IVPB 100 ML IV SCH (05:36)
[2022-01-02] MEDS: POTASSIUM CL 10MEQ/50ML IVPB 50 ML IV SCH (05:36)
--- NOTE | 2022-01-02 06:53 | History & Physical-Hospitalist ---
History of Present Illness HPI/Chief Complaint Chief complaint: NSTEMI status post stent in RCA complicated now with confusion, acute kidney injury, oliguria, severe bradycardia History of present illness: This is an 86-year-old white male who presented to the ER with chest pain 1 day after working in his yard and having midepigastric chest pain and found to have elevated troponin of 16 underwent cardiac catheterization by Dr. Concepcion with stent placement in RCA. 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 He stabilized but overnight became agitated requiring a ntipsychotics due to agitated state and transferred to ICU with continued issues with bradycardia and decreased urinary output and elevated lactic acid. Patient is currently stabilized status post central line right subclavian by Dr. SALMON and I updated the family in depth regarding lab results and prognosis in this critically ill patient. Urinary output will be managed with aggressive IV fluids. Repeat creatinine was 2.1. IV fluid boluses ordered. Systolic function was normal. If continues to decline they are willing to move to higher level for nephrology and possible dialysis and other life-sustaining treatment in the ICU. Patient appears to be very frail and thin and have poor reserve. Source: family, RN/MD, old records Exam Limitations: clinical condition Date Seen 01/02/22 Time Seen by a Provider: 11:30 Attending Physician Radha Bucio Amanda S Aprn Referring Physician Date of Admission Jan 01, 2022 at 14:43 Home Medications & Allergies Home Medications Reviewed patient Home Medication Reconciliation performed by pharmacy medication reconciliations debug technician and/or nursing. Patients Allergies have been reviewed. Allergies Allergies Coded Allergies nortriptyline (Verified Allergy, Unknown, 01/01/22) Past Joixyfs-Otfmda-Ckkrec Hx Patient Social History Marrital Status: Tobacco Use?: No Use of E-Cig and/or Vaping dev: No Substance use?: No Alcohol Use?: No Pt feels they are or have been: No Immunizations Up To Date Date of Influenza Vaccine: Jul 11, 2018 First/Initial COVID19 Vaccinat: Yes Second COVID19 Vaccination Otto: yes Date of Pneumonia Vaccine: Dec 14, 2016 Seasonal Allergies Seasonal Allergies: No Current Status Advance Directives: No Communicates: Verbally Primary Language: [place] Preferred Spoken Language: [place] Is interpretation needed?: No Sensory deficits: Hearing impairment Past Medical History Surgeries: Gallbladder, Nephrectomy, Orthopedic Sleep Apnea Currently Using CPAP: No (HASNT USED CPAP FOR 5-6 YEARS) Coronary Artery Disease, Hypertension Gastroesophageal Reflux Arthritis Hypothyroidsim Hearing Impairment: Hard of Hearing, Hearing Aide Right Blood Disorders: No Review of Systems ROS-Unable to Obtain: Delirium Constitutional: see HPI Physical Exam Physical Exam Vital Signs Vital Signs - First Documented 01/01/22 01/01/22 12:21 23:05 Temp 36.5 Pulse 77 Resp 14 B/P (MAP) 121/77 (92) Pulse Ox 98 O2 Delivery Room Air O2 Flow Rate 25.00 Capillary Refill : Less Than 3 Seconds Height, Weight, BMI Height: 5'7.00" Weight: 129lbs. 0.0oz. 58.491160ly; 19.60 BMI Method: General Appearance: Anxious, Chronically ill, Moderate Distress, Thin, Other (Frail and poor reserve and confused) Neck: Full Range of Motion, Normal Inspection, Non Tender Respiratory: Chest Non Tender, Lungs Clear, Normal Breath Sounds, No Accessory Muscle Use, No Respiratory Distress Cardiovascular: No Edema, No Gallop, No JVD, No Murmur, Normal Peripheral Pulses, Bradycardia Neurologic/Psychiatric: Alert, Disoriented Results Results/Procedures Labs Laboratory Tests 01/01/22 12:28 01/02/22 01:18 01/02/22 04:27 01/02/22 11:45 Patient resulted labs reviewed. Assessment/Plan Admission Diagnosis Assessment: NSTEMI Cardiogenic shock Status post stent to RCA Severe bradycardia requiring atropine and currently on dopamine Acute delirium Poor reserve Acute kidney injury Lactic acidosis due to volume depletion no source of sepsis Solo kidney HTN HLP Obstructive sleep apnea Chronic kidney disease Hypothyroidism Plan: IV fluid resuscitation Treat delirium with antipsychotics Monitor urinary output Supportive care May need transfer for nephrology if kidney function worsens Appreciate cardiology Appreciate eICU Admission Status: Inpatient Order (span 2 midnights) Reason for Inpatient Admission: NSTEMI with bradycardia delirium with acute kidney injury Diagnosis/Problems Diagnosis/Problems (1) NSTEMI (non-ST elevated myocardial infarction) Status: Acute (2) Bradycardia (3) S/P right coronary artery (RCA) stent placement (4) Volume depletion (5) Hyperkalemia (6) Stage 3 chronic kidney disease (7) Encephalopathy acute (8) Cardiogenic shock (9) Single kidney (10) Gouty arthritis (11) Acquired hypothyroidism RADHA BUCIO DO Jan 02, 2022 06:53
--- NOTE | 2022-01-02 08:24 | Cardiology Progress Note ---
Progress Note-Cardiology Events since last exam Date Seen by Provider: Jan 02, 2022 Time Seen by Provider: 08:23 Events since last exam I am following him due to NSTEMI that was due to acute thrombotic occlusion of the proximal right coronary artery that was treated with 1 drug-eluting stent. Last evening I was notified of an elevated troponin level and also that the patient had become agitated. The hospitalist ordered 1 dose of Geodon. This morning when I came to see the patient, he had been transferred to the intensive care unit. He had also been given 1 dose of atropine for bradycardia and started on intravenous dopamine infusion. I was not notified of any of these critical changes in his condition. This was all apparently done by the eICU without my knowledge. He is now in the ICU with his family at the bedside. He is very difficult to communicate with due to severe hearing loss. He is a gitated. He denies chest pain or dyspnea. I cannot obtain any other meaningful history from him due to his hearing loss and agitation. Certain portions of this document may have been dictated utilizing voice recognition technology. Inherent to this technology, typographical and grammatical errors may exist. As much as I am diligent to identify and correct these mistakes, some errors may remain in the document. Vitals Last set of Vitals Signs Vital Signs 01/02/22 01/02/22 07:42 08:00 Temp 36.5 Pulse 43 Resp 14 B/P (MAP) 93/73 (80) Pulse Ox 99 O2 Delivery OxyMask O2 Flow Rate 6.00 Labs Labs Laboratory Tests 01/01/22 12:28 01/02/22 01:18 01/02/22 04:27 Exam Vital Signs Vital Signs Date Time Temp Pulse Resp B/P (MAP) Pulse Ox O2 Delivery O2 Flow Rate FiO2 01/02/22 08:00 43 14 93/73 (80) 99 OxyMask 6.00 01/02/22 07:42 36.5 Physical Exam General: Agitated. No acute distress. Eye: No xanthelasma. HENT: Normocephalic. Neck: Jugular venous pressure does not appear elevated. Respiratory: Lungs are clear to auscultation. Respirations are non-labored. Breath sounds are equal. Symmetrical chest wall expansion. Cardiovascular: Normal rate. Regular rhythm. No murmur. No gallop. No edema. Gastrointestinal: Soft. Normal bowel sounds. Skin: Warm. Dry. Neurologic: Agitated and oriented to person only. Cranial nerves 3-11 grossly intact. Psychiatric: Agitated. Labs Laboratory Tests Test 01/01/22 12:28 01/01/22 12:41 01/01/22 19:24 01/01/22 21:45 Range/Units White Blood Count 9.9 4.3-11.0 10^3/uL Red Blood Count 4.74 4.30-5.52 10^6/uL Hemoglobin 14.8 13.3-17.7 g/dL Hematocrit 46 40-54 % Mean Corpuscular Volume 96 80-99 fL Mean Corpuscular Hemoglobin 31 25-34 pg Mean Corpuscular Hemoglobin Concent 32 32-36 g/dL Red Cell Distribution Width 13.2 10.0-14.5 % Platelet Count 152 130-400 10^3/uL Mean Platelet Volume 10.0 9.0-12.2 fL Immature Granulocyte % (Auto) 1 % Neutrophils (%) (Auto) 78 H 42-75 % Lymphocytes (%) (Auto) 12 12-44 % Monocytes (%) (Auto) 9 0-12 % Eosinophils (%) (Auto) 0 0-10 % Basophils (%) (Auto) 1 0-10 % Neutrophils # (Auto) 7.7 1.8-7.8 10^3/uL Lymphocytes # (Auto) 1.2 1.0-4.0 10^3/uL Monocytes # (Auto) 0.9 0.0-1.0 10^3/uL Eosinophils # (Auto) 0.0 0.0-0.3 10^3/uL Basophils # (Auto) 0.1 0.0-0.1 10^3/uL Immature Granulocyte # (Auto) 0.1 0.0-0.1 10^3/uL Prothrombin Time 13.4 12.2-14.7 SEC INR Comment 1.0 0.8-1.4 Activated Partial Thromboplast Time 35 24-35 SEC Sodium Level 139 135-145 MMOL/L Potassium Level 4.5 3.6-5.0 MMOL/L Chloride Level 101 98-107 MMOL/L Carbon Dioxide Level 26 21-32 MMOL/L Anion Gap 12 5-14 MMOL/L Blood Urea Nitrogen 23 H 7-18 MG/DL Creatinine 1.46 H 0.60-1.30 MG/DL Estimat Glomerular Filtration Rate 47 BUN/Creatinine Ratio 16 Glucose Level 136 H 70-105 MG/DL Calcium Level 10.1 8.5-10.1 MG/DL Corrected Calcium 10.1 8.5-10.1 MG/DL Magnesium Level 1.9 1.6-2.4 MG/DL Total Bilirubin 0.6 0.1-1.0 MG/DL Aspartate Amino Transf (AST/SGOT) 101 H 5-34 U/L Alanine Aminotransferase (ALT/SGPT) 33 0-55 U/L Alkaline Phosphatase 119 40-136 U/L Troponin I 16.03 *H 30.297 *H <0.028 NG/ML Pro-B-Type Natriuretic Peptide 2740.0 H <75.0 PG/ML Total Protein 7.7 6.4-8.2 GM/DL Albumin 4.0 3.2-4.5 GM/DL Lactic Acid Level 1.75 0.50-2.00 MMOL/L Glucometer 148 H 70-110 MG/DL Test 01/02/22 01:18 01/02/22 02:49 01/02/22 03:00 01/02/22 04:27 Range/Units White Blood Count 11.0 11.7 H 4.3-11.0 10^3/uL Red Blood Count 4.17 L 4.14 L 4.30-5.52 10^6/uL Hemoglobin 13.3 13.0 L 13.3-17.7 g/dL Hematocrit 41 40 40-54 % Mean Corpuscular Volume 98 98 80-99 fL Mean Corpuscular Hemoglobin 32 31 25-34 pg Mean Corpuscular Hemoglobin Concent 33 32 32-36 g/dL Red Cell Distribution Width 13.3 13.2 10.0-14.5 % Platelet Count 141 139 130-400 10^3/uL Mean Platelet Volume 10.6 11.2 9.0-12.2 fL Immature Granulocyte % (Auto) 1 1 % Neutrophils (%) (Auto) 85 H 83 H 42-75 % Lymphocytes (%) (Auto) 7 L 7 L 12-44 % Monocytes (%) (Auto) 6 9 0-12 % Eosinophils (%) (Auto) 0 0 0-10 % Basophils (%) (Auto) 0 0 0-10 % Neutrophils # (Auto) 9.4 H 9.7 H 1.8-7.8 10^3/uL Lymphocytes # (Auto) 0.8 L 0.9 L 1.0-4.0 10^3/uL Monocytes # (Auto) 0.7 1.1 H 0.0-1.0 10^3/uL Eosinophils # (Auto) 0.0 0.0 0.0-0.3 10^3/uL Basophils # (Auto) 0.0 0.0 0.0-0.1 10^3/uL Immature Granulocyte # (Auto) 0.1 0.1 0.0-0.1 10^3/uL Neutrophils % (Manual) 77 % Lymphocytes % (Manual) 7 % Monocytes % (Manual) 9 % Band Neutrophils 7 % Percent Immature Platelet Fraction 6.3 6.2 0.0-7.6 % Blood Morphology Comment NORMAL Sodium Level 137 137 135-145 MMOL/L Potassium Level 5.2 H 6.2 H 3.6-5.0 MMOL/L Chloride Level 107 108 H 98-107 MMOL/L Carbon Dioxide Level 15 L 17 L 21-32 MMOL/L Anion Gap 15 H 12 5-14 MMOL/L Blood Urea Nitrogen 27 H 30 H 7-18 MG/DL Creatinine 1.78 H 1.86 H 0.60-1.30 MG/DL Estimat Glomerular Filtration Rate 37 35 BUN/Creatinine Ratio 15 16 Glucose Level 178 H 156 H 70-105 MG/DL Lactic Acid Level 3.59 *H 2.30 *H 0.50-2.00 MMOL/L Calcium Level 8.4 L 8.4 L 8.5-10.1 MG/DL Corrected Calcium 9.1 9.2 8.5-10.1 MG/DL Phosphorus Level 3.5 2.3-4.7 MG/DL Magnesium Level 1.8 1.9 1.6-2.4 MG/DL Total Bilirubin 1.6 H 1.2 H 0.1-1.0 MG/DL Aspartate Amino Transf (AST/SGOT) 208 H 190 H 5-34 U/L Alanine Aminotransferase (ALT/SGPT) 127 H 126 H 0-55 U/L Alkaline Phosphatase 112 108 40-136 U/L Troponin I 34.729 *H 33.610 *H <0.028 NG/ML Total Protein 6.0 L 5.9 L 6.4-8.2 GM/DL Albumin 3.1 L 3.0 L 3.2-4.5 GM/DL Procalcitonin 0.26 H <0.10 NG/ML Urine Color ORANGE Urine Clarity CLEAR Urine pH 5.5 5-9 Urine Specific Watrous 1.015 L 1.016-1.022 Urine Protein 1+ H NEGATIVE Urine Glucose (UA) NEGATIVE NEGATIVE Urine Ketones NEGATIVE NEGATIVE Urine Nitrite NEGATIVE NEGATIVE Urine Bilirubin NEGATIVE NEGATIVE Urine Urobilinogen 0.2 < = 1.0 MG/DL Urine Leukocyte Esterase NEGATIVE NEGATIVE Urine RBC (Auto) 3+ H NEGATIVE Urine RBC 25-50 H /HPF Urine WBC NONE /HPF Urine Squamous Epithelial Cells NONE /HPF Urine Crystals NONE /LPF Urine Bacteria TRACE /HPF Urine Casts NONE /LPF Urine Mucus NEGATIVE /LPF Urine Culture Indicated CULTURE PENDING Blood Gas Puncture Site LEFT RADIAL Blood Gas Patient Temperature 36.4 Arterial Blood pH 7.33 *L 7.37-7.43 Arterial Blood Partial Pressure CO2 37 35-45 MMHG Arterial Blood Partial Pressure O2 128 H 79-93 MMHG Arterial Blood HCO3 19 L 23-27 MMOL/L Arterial Blood Total CO2 20.3 L 21.0-31.0 MMOL/L Arterial Blood Oxygen Saturation 98 94-100 % Arterial Blood Base Excess -5.7 L -2.5-2.5 MMOL/L Ink Test YES-POS Blood Gas Ventilator Setting NO Blood Gas Inspired Oxygen 6L Triglycerides Level 45 <150 MG/DL Cholesterol Level 98 < 200 MG/DL LDL Cholesterol Direct 48 1-129 MG/DL VLDL Cholesterol 9 5-40 MG/DL HDL Cholesterol 41 40-60 MG/DL Thyroid Stimulating Hormone (TSH) 1.25 0.35-4.94 UIU/ML Test 01/02/22 06:52 Range/Units Lactic Acid Level 2.67 *H 0.50-2.00 MMOL/L Diagnosis/Problems Diagnosis/Problems (1) Cardiogenic shock Assessment & Plan: He did have a thrombotic occlusion of the proximal right coronary artery. He probably had some right ventricular involvement in the myocardial infarction which can often result in hypotension or shock. He is now on low-dose dopamine and we will attempt to wean this off. Echocardiogram is pending for this morning. (2) Non-ST elevation myocardial infarction (NSTEMI), initial care episode Assessment & Plan: We will continue aspirin, Brilinta and statin medication. Beta-vince was discontinued due to bradycardia and hypotension. He does have residual disease in the left circumflex system which will need to be addressed at a later point in time, but not today. (3) Encephalopathy acute Assessment & Plan: Etiology unclear. This occurred in the setting of an acute myocardial infarction now with shock. I have ordered a head CT to rule out stroke. (4) Stage 3 chronic kidney disease Assessment & Plan: He appears to have stage III chronic kidney disease. He was given vigorous intravenous fluid to help decrease the risk of contrast-induced nephrotoxicity. 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 This has resulted in chronic kidney disease. We will proceed as above. (6) Acquired hypothyroidism Assessment & Plan: His TSH level during this admission was normal. Continue thyroid medication. AUSTEN GOMEZ JR, MD Jan 02, 2022 08:24
[2022-01-02] MEDS: DexMEDEtomidine 250 ML DRIP 250 ML IV SCH (08:38)
--- NOTE | 2022-01-02 09:38 | Diagnostic Imaging Report ---
PROCEDURE: CT head without r/o stroke. TECHNIQUE: Multiple contiguous axial images were obtained through the brain without the use of intravenous contrast. Auto Exposure Controls were utilized during the CT exam to meet ALARA standards for radiation dose reduction. INDICATION: Altered mental status. COMPARISON: None. DISCUSSION: Mild diffuse brain volume loss is likely age related. White matter hypoattenuation is nonspecific though not greater than expected for age related chronic small vessel ischemic disease. No acute intracranial hemorrhage, mass, midline shift, or hydrocephalus. The orbits, sinuses, mastoid air cells, and calvarium are unremarkable. IMPRESSION: Senescent changes as described. No acute intracranial abnormality identified. Dictated by: Dictated on workstation # [id number]
[2022-01-02] MEDS ORDERED: ENOXAPARIN 40 MG/0.4 ML (LOVENOX) SYR SC SCH (10:00)
[2022-01-02] MEDS: ASPIRIN 81 MG CHEW (CHILDREN'S ASA) PO SCH (11:00)
[2022-01-02] MEDS: TICAGRELOR 90 MG TABLET (BRILINTA) PO SCH ×3 (11:00→20:28)
[2022-01-02] MEDS: DOCUSATE SODIUM 100 MG (COLACE) CAP PO SCH ×2 (11:01→21:00)
[2022-01-02] MEDS: ENOXAPARIN INJECTION 30 MG/0.3 ML SYR SC SCH (11:03)
[2022-01-02] MEDS ORDERED: ATROPINE INJECTION 1 MG/10 ML SYR (ABBOTT) ONE (11:17)
[2022-01-02] MEDS ORDERED: NS IV 1000 ML 1,000 ML IV ONE (11:45)
--- NOTE | 2022-01-02 12:07 | Diagnostic Imaging Report ---
INDICATION: Central line placement. EXAMINATION: Chest from 01/02/2022. COMPARISON: 01/01/2022. FINDINGS: Since the previous examination, there has been placement of a right-sided central line with the tip in the distal SVC. There is no pneumothorax. The heart and pulmonary vasculature appear stable. There is scattered chronic scar or atelectasis in the lungs, similar to previous imaging. No effusions. Post operative changes of the left shoulder are grossly unremarkable as visualized. IMPRESSION: Central line as above with the remaining chest stable. Dictated by: Dictated on workstation # [id number]
[2022-01-02 12:12] LABS: CALCIUM 8.4 MG/DL (8.5-10.1); CREATININE SERUM 2.13 MG/DL (0.60-1.30); POTASSIUM 5.2 MMOL/L (3.6-5.0)
[2022-01-02] MEDS ORDERED: NS IV 1000 ML 1,000 ML IV SCH (14:45)
--- NOTE | 2022-01-02 15:39 | CONSULTATION REPORT ---
DATE OF SERVICE: 01/02/2022 ADMITTING PHYSICIAN: Dr. Concepcion. The patient is an 86-year-old male who presented to the Emergency Department with substernal chest tightness. This worsened and he eventually felt weak; however, did not fall down. He did not report any headaches, lightheadedness, or syncopal episodes. He was seen in the Emergency Department where he was seen by cardiology and a catheterization done, which did not show any coronary atherosclerosis; however, since the procedure, the patient has been confused, hypotensive as well as bradycardic requiring a dopamine drip. PAST MEDICAL HISTORY: Gout, hypertension, gastroesophageal reflux disease, hypothyroid, stage III kidney disease. PAST SURGICAL HISTORY: Joint replacement. ALLERGIES: NORTRIPTYLINE. MEDICATIONS: Allopurinol 300 mg daily, azithromycin 250 mg every other day, levothyroxine 50 mcg daily, Protonix 40 mg daily, Tramadol 50 mg q.6 hours p.r.n. SOCIAL HISTORY: Negative smoke, negative alcohol. FAMILY HISTORY: Noncontributory. VITAL SIGNS: Temperature 36.5, blood pressure 150/90, pulse 59, respirations 27, pulse ox 99% on oxygen mask at 6 liters. REVIEW OF SYSTEMS: This is a thin-appearing male, currently in no acute distress; however, he is confused. He is not experiencing any shortness of breath or difficulty breathing. No chest pain, palpitations, diaphoresis. No nausea, vomiting. Currently, no chest pain or tightness. No known issues with diarrhea, no constipation, no red blood per rectum, no dark tarry stools. No fever, chills, no recent inadvertent weight loss. All other review of systems negative. PHYSICAL EXAMINATION: CHEST: Good breath sounds bilaterally. HEART: Regular, no murmurs. EXTREMITIES: No lower extremity edema, negative Homans sign. HEENT: No scleral icterus. NECK: No cervical lymphadenopathy. ABDOMEN: Soft, nontender, nondistended. SKIN: Warm and dry. ASSESSMENT AND PLAN: An 86-year-old male with symptomatic bradycardia and hypotension, status post cardiac catheterization requiring a dopamine drip. He has poor peripheral venous circulation and also was confused and has been pulling out his peripheral IV lines and will require a central venous catheter for central access for a chronotropic agent as well as potential vasopressors. Job ID: [id number] DocumentID: [id number] Dictated Date: 01/02/2022 11:59:29 Risk Assessment Analyst Date: 01/02/2022 15:38:59 Dictated By: LIAN SALMON MD MTDD
[2022-01-02] MEDS: ROSUVASTATIN 20 MG (CRESTOR) TABLET PO SCH (20:23)
[2022-01-03] VITALS (9 sets, daily range): BP systolic 131–162; BP diastolic 62–82
--- NOTE | 2022-01-03 01:23 | OPERATIVE REPORT ---
DATE OF SERVICE: 01/02/2022 PREPROCEDURE DIAGNOSES: Symptomatic bradycardia and hypotension. POSTPROCEDURE DIAGNOSES: Symptomatic bradycardia and hypotension. PROCEDURE: Placement of right subclavian central venous catheter. SURGEON: Lian Salmon MD. ANESTHESIA: Local. ESTIMATED BLOOD LOSS: Minimal. DISPOSITION: The patient tolerated the procedure well. INDICATIONS: The patient is an 86-year-old male, who came in with chest tightness and pressure sensation as well as significant weakness. He was brought to the Emergency Department where he was evaluated and underwent cardiac catheterization. Since the catheterization, he has been bradycardic requiring dopamine drip. He is also confused and continues to remove his peripheral IV access. He will require a central venous catheter for IV chronotropic agent as well as a possible vasopressor. DESCRIPTION OF PROCEDURE: The chest and neck were prepped and draped in standard surgical fashion. A 1% lidocaine was used to anesthetize the right subclavian region. The right subclavian vein was then cannulated withdrawing the venous blood. Guidewire was then inserted without any resistance. The cannulating needle removed and a skin incision made using an 11 blade. A tract was then created using a venous dilator and through this opening, a central venous catheter was placed over the guidewire using a Seldinger technique. Guidewire removed and all three ports vanessa venous blood and flushed pushed in without any resistance. The catheter was then sutured to the skin using interrupted 3-0 silk sutures. Catheter was then cleaned and covered with Op-Site. The patient tolerated the procedure well. We will get a post-procedure chest x-ray and once confirmation of placement of this may be used at any time. Job ID: [id number] DocumentID: [id number] Dictated Date: 01/02/2022 12:02:24 Men'S Basketball Coach Date: 01/02/2022 21:48:16 Dictated By: LIAN SALMON MD
[2022-01-03] MEDS: DexMEDEtomidine 250 ML DRIP 250 ML IV SCH (02:08)
[2022-01-03] MEDS: DOPamine DRIP 250 ML IV SCH ×2 (02:39→23:10)
[2022-01-03 04:00] LABS: BASOPHILS % (AUTO) 0 % (0-10); EOSINOPHILS % (AUTO) 0 % (0-10); HEMATOCRIT 34 % (40-54); HEMOGLOBIN 11.2 g/dL (13.3-17.7); LYMPHOCYTES # (AUTO) 0.9 10^3/uL (1.0-4.0); LYMPHOCYTES % (AUTO) 5 % (12-44); MEAN CORPUSCULAR HEMOGLOBIN 32 pg (25-34); MEAN CORPUSCULAR HGB CONC 33 g/dL (32-36); MEAN CORPUSCULAR VOLUME 96 fL (80-99); MEAN PLATELET VOLUME 11.3 fL (9.0-12.2); MONOCYTES # (AUTO) 1.5 10^3/uL (0.0-1.0); MONOCYTES % (AUTO) 9 % (0-12); NEUTROPHILS # (AUTO) 14.7 10^3/uL (1.8-7.8); NEUTROPHILS % (AUTO) 85 % (42-75); PLATELET COUNT 136 10^3/uL (130-400); WHITE BLOOD COUNT 17.2 10^3/uL (4.3-11.0)
[2022-01-03 04:11] LABS: ALBUMIN 2.8 GM/DL (3.2-4.5); POTASSIUM 4.6 MMOL/L (3.6-5.0)
[2022-01-03 04:12] LABS: CALCIUM 8.1 MG/DL (8.5-10.1)
[2022-01-03 04:14] LABS: TOTAL PROTEIN 5.4 GM/DL (6.4-8.2)
[2022-01-03 04:15] LABS: BILIRUBIN,TOTAL 0.8 MG/DL (0.1-1.0)
[2022-01-03 04:17] LABS: CREATININE SERUM 2.04 MG/DL (0.60-1.30)
[2022-01-03 04:21] LABS: MAGNESIUM 1.9 MG/DL (1.6-2.4)
[2022-01-03] MEDS: POTASSIUM CL 10MEQ/50ML IVPB 50 ML IV SCH (05:03)
[2022-01-03] MEDS: MAGNESIUM 1 GM/100 ML IVPB 100 ML IV SCH (05:03)
[2022-01-03] MEDS: KCL 20 MEQ TAB (K-DUR) PO SCH (05:04)
[2022-01-03] MEDS: NS IV 1000 ML 1,000 ML IV SCH (05:51)
[2022-01-03] MEDS: ASPIRIN 81 MG CHEW (CHILDREN'S ASA) PO SCH (08:35)
[2022-01-03] MEDS: DOCUSATE SODIUM 100 MG (COLACE) CAP PO SCH ×2 (08:35→20:04)
[2022-01-03] MEDS: ENOXAPARIN INJECTION 30 MG/0.3 ML SYR SC SCH (08:35)
[2022-01-03] MEDS: TICAGRELOR 90 MG TABLET (BRILINTA) PO SCH ×2 (08:35→20:04)
--- NOTE | 2022-01-03 09:57 | Cardiology Progress Note ---
Progress Note-Cardiology Events since last exam Date Seen by Provider: Jan 03, 2022 Time Seen by Provider: 09:56 Events since last exam I am following him due to non-ST elevation myocardial infarction involving the right coronary artery that was treated with 1 drug-eluting stent. This was complicated by ongoing cardiogenic shock. Fortunately, the patient has normal left ventricular systolic function. He has severe right ventricular systolic dysfunction which is likely the primary cause of his ongoing shock that is still requiring dopamine infusion. He was much more awake and alert today. He was sitting up in bed eating breakfast with the assistance of his daughter. He denied chest discomfort, dyspnea, palpitations, syncope, or ankle edema. Certain portions of this document may have been dictated utilizing voice recognition technology. Inherent to this technology, typographical and grammatical errors may exist. As much as I am diligent to identify and correct these mistakes, some errors may remain in the document. Vitals Last set of Vitals Signs Vital Signs 01/03/22 01/03/22 01/03/22 07:34 10:00 10:25 Temp 37.0 Pulse 25 Resp 42 B/P (MAP) 114/64 Pulse Ox 99 O2 Delivery OxyMask O2 Flow Rate 6.00 Labs Labs Laboratory Tests 01/02/22 11:45 01/03/22 03:49 Exam Vital Signs Vital Signs Date Time Temp Pulse Resp B/P (MAP) Pulse Ox O2 Delivery O2 Flow Rate FiO2 01/03/22 10:25 25 01/03/22 10:00 42 114/64 99 OxyMask 6.00 01/03/22 07:34 37.0 Physical Exam General: Alert. No acute distress. He is very hard of hearing. Eye: No xanthelasma. HENT: Normocephalic. Neck: Jugular venous pressure does not appear elevated. Respiratory: Lungs are clear to auscultation. Respirations are non-labored. Br eath sounds are equal. Symmetrical chest wall expansion. Cardiovascular: Normal rate. Regular rhythm. No murmur. No gallop. No edema. Gastrointestinal: Soft. Normal bowel sounds. Skin: Warm. Dry. Neurologic: Alert and oriented to person and he knows he is in a hospital. Cranial nerves 3-11 grossly intact. Psychiatric: Cooperative. Appropriate mood & affect. Labs Laboratory Tests Test 01/02/22 11:11 01/02/22 11:45 01/02/22 13:20 01/02/22 17:31 Range/Units Lactic Acid Level 3.21 *H 1.44 0.50-2.00 MMOL/L Sodium Level 141 135-145 MMOL/L Potassium Level 5.2 H 3.6-5.0 MMOL/L Chloride Level 110 H 98-107 MMOL/L Carbon Dioxide Level 17 L 21-32 MMOL/L Anion Gap 14 5-14 MMOL/L Blood Urea Nitrogen 38 H 7-18 MG/DL Creatinine 2.13 H 0.60-1.30 MG/DL Estimat Glomerular Filtration Rate 30 BUN/Creatinine Ratio 18 Glucose Level 137 H 70-105 MG/DL Calcium Level 8.4 L 8.5-10.1 MG/DL Glucometer 69 L 70-110 MG/DL Test 01/02/22 19:28 01/02/22 23:52 01/03/22 03:49 01/03/22 10:07 Range/Units Glucometer 107 105 70-110 MG/DL White Blood Count 17.2 H 4.3-11.0 10^3/uL Red Blood Count 3.53 L 4.30-5.52 10^6/uL Hemoglobin 11.2 L 13.3-17.7 g/dL Hematocrit 34 L 40-54 % Mean Corpuscular Volume 96 80-99 fL Mean Corpuscular Hemoglobin 32 25-34 pg Mean Corpuscular Hemoglobin Concent 33 32-36 g/dL Red Cell Distribution Width 13.2 10.0-14.5 % Platelet Count 136 130-400 10^3/uL Mean Platelet Volume 11.3 9.0-12.2 fL Immature Granulocyte % (Auto) 1 % Neutrophils (%) (Auto) 85 H 42-75 % Lymphocytes (%) (Auto) 5 L 12-44 % Monocytes (%) (Auto) 9 0-12 % Eosinophils (%) (Auto) 0 0-10 % Basophils (%) (Auto) 0 0-10 % Neutrophils # (Auto) 14.7 H 1.8-7.8 10^3/uL Lymphocytes # (Auto) 0.9 L 1.0-4.0 10^3/uL Monocytes # (Auto) 1.5 H 0.0-1.0 10^3/uL Eosinophils # (Auto) 0.0 0.0-0.3 10^3/uL Basophils # (Auto) 0.0 0.0-0.1 10^3/uL Immature Granulocyte # (Auto) 0.1 0.0-0.1 10^3/uL Sodium Level 139 135-145 MMOL/L Potassium Level 4.6 3.6-5.0 MMOL/L Chloride Level 111 H 98-107 MMOL/L Carbon Dioxide Level 17 L 21-32 MMOL/L Anion Gap 11 5-14 MMOL/L Blood Urea Nitrogen 43 H 7-18 MG/DL Creatinine 2.04 H 0.60-1.30 MG/DL Estimat Glomerular Filtration Rate 31 BUN/Creatinine Ratio 21 Glucose Level 96 70-105 MG/DL Calcium Level 8.1 L 8.5-10.1 MG/DL Corrected Calcium 9.1 8.5-10.1 MG/DL Magnesium Level 1.9 1.6-2.4 MG/DL Total Bilirubin 0.8 0.1-1.0 MG/DL Aspartate Amino Transf (AST/SGOT) 102 H 5-34 U/L Alanine Aminotransferase (ALT/SGPT) 87 H 0-55 U/L Alkaline Phosphatase 85 40-136 U/L Total Protein 5.4 L 6.4-8.2 GM/DL Albumin 2.8 L 3.2-4.5 GM/DL Procalcitonin 0.77 H <0.10 NG/ML Lactic Acid Level 0.83 0.50-2.00 MMOL/L Diagnosis/Problems Diagnosis/Problems (1) Cardiogenic shock Assessment & Plan: He did have a thrombotic occlusion of the proximal right coronary artery. He has severe right ventricular systolic dysfunction noted on his echocardiogram. He most likely had involvement of his right ventricle in the acute myocardial infarction. He has received a good amount of intravenous fluid which is the treatment of right ventricular infarct. His blood pressures have been improving. We will continue to attempt to wean dopamine. All antihypertensive medication is on hold. (2) Non-ST elevation myocardial infarction (NSTEMI), initial care episode Assessment & Plan: He is now status post drug-eluting stent placement to the proximal right coronary artery. He probably had a significant right ventricular infarct which is causing the shock. We will continue aspirin, Brilinta and statin medication. Beta-vince was discontinued due to bradycardia and hypotension. 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 I will probably wait for him to recover from this event and consider intervention in 4-6 weeks. (3) Acute kidney injury superimposed on chronic kidney disease Assessment & Plan: He most likely has some degree of contrast-induced nephrotoxicity as well as ATN from the ongoing shock. His renal function is starting to improve with the intravenous fluids. He has a single kidney. He continues to make good urine output. This should resolve spontaneously over the next few days. I will hold off on any additional interventional procedures until he recovers for 4 to 6 weeks. (4) Encephalopathy acute Assessment & Plan: Etiology unclear. This occurred in the setting of an acute myocardial infarction now with shock. There were no acute changes on his head CT. He is starting to improve. 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 This has resulted in chronic kidney disease. We will proceed as above. (6) Stage 3 chronic kidney disease Assessment & Plan: As above. (7) Acquired hypothyroidism Assessment & Plan: His TSH level during this admission was normal. Continue thyroid medication. AUSTEN GOMEZ JR, MD Jan 03, 2022 09:57
--- NOTE | 2022-01-03 10:00 | Diagnostic Imaging Report ---
Indication: Infection. Time of Exam: 9:58 AM Correlation is made with prior chest from one day earlier. Heart size stable. Right-sided line has tip overlying the SVC. Areas of scarring or atelectasis in both bases are noted, similar to prior. There is no significant effusion or pneumothorax. IMPRESSION: Stable chest since exam one day earlier. Dictated by: Dictated on workstation # [id number]
[2022-01-03] MEDS: CEFEPIME INJECTION 1,000 MG in NS (IVPB) 50 ML IV SCH ×2 (10:04→20:09)
--- NOTE | 2022-01-03 10:07 | Tele-ICU Progress Note ---
Subjective Date Seen by a Provider: Jan 03, 2022 Time Seen by a Provider: 10:07 Subjective/Events-last exam (Tele-ICU Physician , Progress Note ) Available chart/ vitals / labs / Images reviewed Video assessment done using teleICU camera, rest of exam as per RN Discussed with RN , EXAM PER RN Events overnight : Afebrile FiO2 - I/O = Drips: 50 Pressors: , hemodynamically stable Consultants: sx -line , cards Hospital course: 01/01- NSTEMI, -s/p EDGE GRINDER stetnt o RCA 01/02 - transferred to ICU -, -hypotension , philomena ( s/p right subclavian line ) - dopa gtt 01/03- on dopa , cefepime empirically A/P Cardiogenic shock - dopamine -ECHO 01/02 EF 65% RVSP 34 , severely dilated right ventricle NSTENI -s/p EDGE GRINDER stetnt o RCA -Brilinta - off Beta-vince Encephalopathy acute - CTH 01/01 - aaox2 CKD ( Single kidney - worsening slightly with hypotension ( and s/p contrast Elev transaminases - shock liver suspected Leukocytosis, with Nl WBC on admission - low grade fever 37 - re-work up - cefepime 01/03 empirically Lines : 01/02 - right subclavian central venous catheter. 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 Discussed with RN to reach out if any questions or concerns A total of 31 minutes of critical care time was devoted to this patient today, required to treat and/or prevent further deterioration of critical care condition ( as above) . Sepsis Event Evaluation Height, Weight, BMI Height: 5'7.00" Weight: 129lbs. 0.0oz. 58.373188dp; 19.60 BMI Method: Focused Exam Lactate Level 01/02/22 09:00: Lactic Acid Level 3.06*H 01/02/22 11:11: Lactic Acid Level 3.21*H 01/02/22 13:20: Lactic Acid Level 1.44 Exam Exam Patient acknowledged, consented, and participated in this virtual visit which was conducted using real time audio/video Vital Signs Date Time Temp Pulse Resp B/P (MAP) Pulse Ox O2 Delivery O2 Flow Rate FiO2 01/03/22 10:00 79 42 114/64 99 OxyMask 6.00 01/03/22 09:00 91 7 112/63 97 OxyMask 6.00 01/03/22 08:00 93 16 140/75 (96) 100 OxyMask 6.00 01/03/22 08:00 96 Room Air 01/03/22 07:34 37.0 01/03/22 07:00 87 01/03/22 07:00 94 14 143/79 (100) 100 OxyMask 6.00 01/03/22 06:00 86 15 137/73 (94) 100 OxyMask 6.00 01/03/22 05:00 91 18 138/71 (93) 100 OxyMask 6.00 01/03/22 04:17 37.0 01/03/22 04:00 87 16 131/73 (92) 100 OxyMask 6.00 01/03/22 04:00 100 Room Air 6.00 01/03/22 03:00 88 19 134/62 (86) 100 OxyMask 6.00 01/03/22 02:53 87 01/03/22 02:39 87 122/61 01/03/22 02:08 91 142/65 01/03/22 02:00 92 11 142/65 (90) 97 OxyMask 6.00 01/03/22 01:00 87 14 162/82 (108) 100 OxyMask 6.00 01/03/22 00:00 87 19 150/78 (102) 100 OxyMask 6.00 01/02/22 23:59 100 Room Air 6.00 01/02/22 23:00 86 20 151/83 (105) 100 OxyMask 6.00 01/02/22 22:00 82 21 153/82 (105) 100 OxyMask 6.00 01/02/22 21:00 92 16 142/72 (95) 100 OxyMask 6.00 01/02/22 20:00 100 Room Air 6.00 01/02/22 20:00 68 13 117/78 (91) 93 OxyMask 6.00 01/02/22 19:38 36.5 01/02/22 19:00 68 10 171/77 (108) 100 OxyMask 6.00 01/02/22 19:00 68 01/02/22 18:52 100 OxyMask 10.00 01/02/22 18:00 70 18 112/68 (83) 100 OxyMask 6.00 01/02/22 17:00 77 24 118/71 (87) 100 OxyMask 6.00 01/02/22 16:22 36.0 01/02/22 16:00 71 13 134/80 (98) 96 OxyMask 6.00 01/02/22 16:00 100 Room Air 01/02/22 15:00 75 13 144/77 (99) 100 OxyMask 6.00 01/02/22 14:00 72 20 164/79 (107) 100 OxyMask 6.00 01/02/22 13:00 57 16 146/70 (95) 100 OxyMask 6.00 01/02/22 12:57 60 01/02/22 12:08 36.2 01/02/22 12:00 73 11 158/72 (100) 100 OxyMask 6.00 01/02/22 11:45 100 OxyMask 6.00 01/02/22 11:00 59 27 150/90 (110) 99 OxyMask 6.00 I & O 01/03/22 07:00 Intake Total 375 ml Output Total 405 ml Balance -30 ml Height & Weight Height: 5'7.00" Weight: 129lbs. 0.0oz. 58.665492sw; 19.60 BMI Method: General Appearance: Anxious, Chronically ill, Moderate Distress, Thin, Other (Frail and poor reserve and confused) Neck: Full Range of Motion, Normal Inspection, Non Tender Respiratory: Chest Non Tender, Lungs Clear, Normal Breath Sounds, No Accessory Muscle Use, No Respiratory Distress Cardiovascular: No Edema, No Gallop, No JVD, No Murmur, Normal Peripheral Pulses, Bradycardia Capillary Refill: Less Than 3 Seconds Gastrointestinal: normal bowel sounds, soft; No distended, No guarding, No rebound; tenderness (Mild epigastric tenderness) Neurologic/Psychiatric: Alert, Disoriented Results Lab Laboratory Tests 01/01/22 12:28 01/02/22 01:18 01/02/22 04:27 01/02/22 11:45 01/03/22 03:49 Assessment/Plan Assessment/Plan . DOMONIQUE CLAUDIO MD Jan 03, 2022 10:07
[2022-01-03 11:27] LABS: BILIRUBIN,URINE NEGATIVE (NEGATIVE); CLARITY,URINE SL CLOUDY; COLOR,URINE DARK YELLOW; GLUCOSE, URINE (UA) NEGATIVE (NEGATIVE); KETONES,URINE NEGATIVE (NEGATIVE); LEUKOCYTE ESTERASE ,URINE 2+ (NEGATIVE); NITRITE,URINE NEGATIVE (NEGATIVE); PH,URINE 5.5 (5-9); PROTEIN,URINE 2+ (NEGATIVE)
[2022-01-03] MEDS ORDERED: KRIL1CAP22 PO (11:28)
[2022-01-03 11:49] LABS: BACTERIA,URINE LARGE /HPF; RBC,URINE 25-50 /HPF; SQUAMOUS EPITHELIAL CELL,UR RARE /HPF; WBC,URINE 25-50 /HPF
[2022-01-03 11:50] LABS: AMORPHOUS SEDIMENT,UR FEW AMOR URATES /LPF
--- NOTE | 2022-01-03 12:57 | Progress Note - Hospitalist ---
JENNIE NÚÑEZ 01/03/22 1256: Subjective HPI/CC On Admission Date Seen by Provider: Jan 03, 2022 Time Seen by Provider: 09:20 Chief complaint: NSTEMI status post stent in RCA complicated now with confusion, acute kidney injury, oliguria, severe bradycardia History of present illness: This is an 86-year-old white male who presented to the ER with chest pain 1 day after working in his yard and having midepigastric chest pain and found to have elevated troponin of 16 underwent cardiac catheterization by Dr. Concepcion with stent placement in RCA. 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 He stabilized but overnight became agitated requiring antipsychotics due to agitated state and transferred to ICU with continued issues with bradycardia and decreased urinary output and elevated lactic acid. Patient is currently stabilized status post central line right subclavian by Dr. SALMON and I updated the family in depth regarding lab results and prognosis in this critically ill patient. Urinary output will be managed with aggressive IV fluids. Repeat creatinine was 2.1. IV fluid boluses ordered. Systolic function was normal. If continues to decline they are willing to move to higher level for nephrology and possible dialysis and other life-sustaining treatment in the ICU. Patient appears to be very frail and thin and have poor reserve. Subjective/Events-last exam PT was laying in bed this morning and was not in acute distress, and was not delirious. He denied any chest pain. He was coughing up some spetum, which his reports is normal for him. He denied fevers or chills. Review of Systems General: No Chills, No Night Sweats HEENT: No Head Aches, No Visual Changes Pulmonary: No Dyspnea; Cough Cardiovascular: No: Chest Pain, Palpitations Gastrointestinal: No: Nausea, Vomiting Focused Exam Lactate Level 01/02/22 11:11: Lactic Acid Level 3.21*H 01/02/22 13:20: Lactic Acid Level 1.44 01/03/22 10:07: Lactic Acid Level 0.83 Lactic Acid Level Laboratory Tests Test 01/03/22 10:07 Lactic Acid Level 0.83 MMOL/L (0.50-2.00) Objective Exam Vital Signs Vital Signs Date Time Temp Pulse Resp B/P (MAP) Pulse Ox O2 Delivery O2 Flow Rate FiO2 01/03/22 13:00 80 01/03/22 13:00 16 137/77 97 OxyMask 6.00 01/03/22 12:00 36.7 Capillary Refill : Less Than 3 Seconds General Appearance: No Apparent Distress, Chronically ill HEENT: PERRL/EOMI, Pharynx Normal Neck: Full Range of Motion, Normal Inspection, Non Tender, Supple Respiratory: Chest Non Tender, Lungs Clear, Normal Breath Sounds, No Accessory Muscle Use, No Respiratory Distress Cardiovascular: Regular Rate, Rhythm, No Edema, No Gallop, No Murmur, Normal Peripheral Pulses Gastrointestinal: Normal Bowel Sounds, No Organomegaly, No Pulsatile Mass, Non Tender, Soft Extremity: Normal Inspection, No Calf Tenderness Neurologic/Psychiatric: Alert, No Motor/Sensory Deficits, Normal Mood/Affect Skin: Normal Color, Warm/Dry Results/Procedures Lab Laboratory Tests 01/03/22 03:49 Patient resulted labs reviewed. Assessment/Plan Assessment and Plan Assess & Plan/Chief Complaint Assessment: NSTEMI Cardiogenic shock Status post stent to RCA Leukocytosis Severe bradycardia Acute delirium Poor reserve Acute kidney injury Lactic acidosis due to volume depletion no source of sepsis Solo kidney HTN HLP Obstructive sleep apnea Chronic kidney disease Hypothyroidism Plan: NSTEMI Cardiogenic shock Status post stent to RCA Leukocytosis Severe bradycardia Acute delirium Poor reserve Acute kidney injury Solo kidney Lactic acidosis due to volume depletion no source of sepsis Delirium appears to have resolved. PT with leukocytosis, will check for possible infectious source with Chest Xray, urinalysis/ urine culture and blood culture. Procalcitonin ordered.. PT will start on Cefepime for broad coverage. Continue on IV fluids. Continue to monitor urine output. Appreciate cardiology HTN HLP Obstructive sleep apnea Chronic kidney disease Hypothyroidism No acute management needed at this time RADHA KRAUS DO 01/04/22 0529: Subjective Subjective/Events-last exam Pt is doing a lot better White count 17.2 and procalcitonin was noted We will initiate Cefepime after pablo culture of UA and chest x-ray, add procalcitonin to monitor and maintain close evaluation of any fever Vanc will not be added due to renal insufficiency, so MRSA swab will be initiated Creatinine 2.04 Decreasing Dopamine and remains on a little bit of Precedex Family is at the bedside and updated Review of Systems General: Fatigue, Malaise Objective Exam General Appearance: No Apparent Distress, WD/WN, Chronically ill Respiratory: Lungs Clear, Normal Breath Sounds Cardiovascular: Regular Rate, Rhythm Neurologic/Psychiatric: Alert, Disoriented Assessment/Plan Assessment and Plan Assess & Plan/Chief Complaint Monitor kidney function Supportive care Antibiotics empirically Panculture Supervisory-Addendum Brief Verification & Attestation Participated in pt care: history, MDM, physical Personally performed: exam, history, MDM, supervision of care Care discussed with: Medical Student Procedures: n/a Results interpretation: Verified all documentation Verification and Attestation of Medical Student E/M Service A medical student performed and documented this service in my presence. I reviewed and verified all information documented by the medical student and made modifications to such information, when appropriate. I personally performed the physical exam and medical decision making. Radha Kraus Jan 04, 2022,05:29 JENNIE NÚÑEZ Jan 03, 2022 12:56 RADHA KRAUS DO Jan 04, 2022 05:29
[2022-01-03] MEDS: ROSUVASTATIN 20 MG (CRESTOR) TABLET PO SCH (20:04)
[2022-01-04] MEDS: NS IV 1000 ML 1,000 ML IV SCH (02:00)
[2022-01-04 03:49] LABS: BASOPHILS % (AUTO) 0 % (0-10); EOSINOPHILS % (AUTO) 0 % (0-10); HEMATOCRIT 34 % (40-54); HEMOGLOBIN 11.4 g/dL (13.3-17.7); LYMPHOCYTES # (AUTO) 0.8 10^3/uL (1.0-4.0); LYMPHOCYTES % (AUTO) 7 % (12-44); MEAN CORPUSCULAR HEMOGLOBIN 32 pg (25-34); MEAN CORPUSCULAR HGB CONC 33 g/dL (32-36); MEAN CORPUSCULAR VOLUME 95 fL (80-99); MEAN PLATELET VOLUME 10.5 fL (9.0-12.2); MONOCYTES # (AUTO) 1.2 10^3/uL (0.0-1.0); MONOCYTES % (AUTO) 10 % (0-12); NEUTROPHILS # (AUTO) 10.3 10^3/uL (1.8-7.8); NEUTROPHILS % (AUTO) 82 % (42-75); PLATELET COUNT 142 10^3/uL (130-400); WHITE BLOOD COUNT 12.5 10^3/uL (4.3-11.0)
[2022-01-04 04:06] LABS: ALBUMIN 2.8 GM/DL (3.2-4.5); POTASSIUM 4.1 MMOL/L (3.6-5.0)
[2022-01-04 04:07] LABS: CALCIUM 8.3 MG/DL (8.5-10.1)
[2022-01-04 04:09] LABS: TOTAL PROTEIN 5.6 GM/DL (6.4-8.2)
[2022-01-04 04:10] LABS: BILIRUBIN,TOTAL 0.7 MG/DL (0.1-1.0)
[2022-01-04 04:12] LABS: CREATININE SERUM 1.67 MG/DL (0.60-1.30)
[2022-01-04] MEDS: MAGNESIUM 1 GM/100 ML IVPB 100 ML IV SCH (04:25)
[2022-01-04] MEDS: POTASSIUM CL 10MEQ/50ML IVPB 50 ML IV SCH (04:25)
[2022-01-04] MEDS: KCL 20 MEQ TAB (K-DUR) PO SCH (04:26)
[2022-01-04] MEDS: ASPIRIN 81 MG CHEW (CHILDREN'S ASA) PO SCH (08:44)
[2022-01-04] MEDS: DOCUSATE SODIUM 100 MG (COLACE) CAP PO SCH (08:44)
[2022-01-04] MEDS: CEFEPIME INJECTION 1,000 MG in NS (IVPB) 50 ML IV SCH (08:44)
[2022-01-04] MEDS: TICAGRELOR 90 MG TABLET (BRILINTA) PO SCH ×2 (08:45→19:29)
--- NOTE | 2022-01-04 09:37 | Cardiology Progress Note ---
Progress Note-Cardiology Events since last exam Date Seen by Provider: Jan 04, 2022 Time Seen by Provider: 09:34 Events since last exam I am following him due to non-ST elevation myocardial infarction complicated by right heart failure due to right ventricular infarction. He is more awake and alert today. He is still on dopamine for persistent cardiogenic shock. He has some occasional right-sided chest pain but states this hurts if he pushes on the right side of his chest with his hand. He denies dyspnea, palpitations, syncope, or ankle edema. His and daughter were at his bedside. Certain portions of this document may have been dictated utilizing voice recognition technology. Inherent to this technology, typographical and grammatical errors may exist. As much as I am diligent to identify and correct these mistakes, some errors may remain in the document. Vitals Last set of Vitals Signs Vital Signs 01/03/22 01/04/22 01/04/22 18:00 10:30 12:00 Pulse 86 Resp 20 B/P (MAP) 169/90 Pulse Ox 99 O2 Delivery Room Air O2 Flow Rate 6.00 Labs Labs Laboratory Tests 01/04/22 02:40 Exam Vital Signs Vital Signs Date Time Temp Pulse Resp B/P (MAP) Pulse Ox O2 Delivery O2 Flow Rate FiO2 01/04/22 12:00 99 Room Air 01/04/22 10:30 86 20 169/90 01/04/22 08:00 37.0 01/03/22 18:00 6.00 Labs Laboratory Tests Test 01/03/22 17:02 01/04/22 00:41 01/04/22 02:40 01/04/22 03:40 Range/Units Glucometer 96 109 70-110 MG/DL White Blood Count 12.5 H 4.3-11.0 10^3/uL Red Blood Count 3.61 L 4.30-5.52 10^6/uL Hemoglobin 11.4 L 13.3-17.7 g/dL Hematocrit 34 L 40-54 % Mean Corpuscular Volume 95 80-99 fL Mean Corpuscular Hemoglobin 32 25-34 pg Mean Corpuscular Hemoglobin Concent 33 32-36 g/dL Red Cell Distribution Width 12.7 10.0-14.5 % Platelet Count 142 130-400 10^3/uL Mean Platelet Volume 10.5 9.0-12.2 fL Immature Granulocyte % (Auto) 1 % Neutrophils (%) (Auto) 82 H 42-75 % Lymphocytes (%) (Auto) 7 L 12-44 % Monocytes (%) (Auto) 10 0-12 % Eosinophils (%) (Auto) 0 0-10 % Basophils (%) (Auto) 0 0-10 % Neutrophils # (Auto) 10.3 H 1.8-7.8 10^3/uL Lymphocytes # (Auto) 0.8 L 1.0-4.0 10^3/uL Monocytes # (Auto) 1.2 H 0.0-1.0 10^3/uL Eosinophils # (Auto) 0.0 0.0-0.3 10^3/uL Basophils # (Auto) 0.0 0.0-0.1 10^3/uL Immature Granulocyte # (Auto) 0.1 0.0-0.1 10^3/uL Sodium Level 137 135-145 MMOL/L Potassium Level 4.1 3.6-5.0 MMOL/L Chloride Level 108 H 98-107 MMOL/L Carbon Dioxide Level 18 L 21-32 MMOL/L Anion Gap 11 5-14 MMOL/L Blood Urea Nitrogen 38 H 7-18 MG/DL Creatinine 1.67 H 0.60-1.30 MG/DL Estimat Glomerular Filtration Rate 40 BUN/Creatinine Ratio 23 Glucose Level 95 70-105 MG/DL Calcium Level 8.3 L 8.5-10.1 MG/DL Corrected Calcium 9.3 8.5-10.1 MG/DL Magnesium Level 2.0 1.6-2.4 MG/DL Total Bilirubin 0.7 0.1-1.0 MG/DL Aspartate Amino Transf (AST/SGOT) 76 H 5-34 U/L Alanine Aminotransferase (ALT/SGPT) 83 H 0-55 U/L Alkaline Phosphatase 91 40-136 U/L Total Protein 5.6 L 6.4-8.2 GM/DL Albumin 2.8 L 3.2-4.5 GM/DL Phosphorus Level 2.4 2.3-4.7 MG/DL Diagnosis/Problems Diagnosis/Problems (1) Cardiogenic shock Assessment & Plan: I suspect this is due to significant right ventricular infarction. He has received a good amount of intravenous fluid which is the vandana atment of right ventricular infarct. His blood pressures have been improving. I will stop the intravenous fluids. We will continue to attempt to wean dopamine. All antihypertensive medication is on hold. If we cannot get him off the dopamine and the next 24-48 hours, I will consider starting him on midodrine. (2) Sinus bradycardia Assessment & Plan: He had a significant pause this morning. He likely had involvement of the SA jean pierre artery and AV jean pierre arteries during his acute myocardial infarction. Typically, these areas will recover over time but this could take a few more days. If he continues to have pauses in 48 hours, we may need to consider pacemaker implantation on Monday. (3) Non-ST elevation myocardial infarction (NSTEMI), initial care episode Assessment & Plan: He is now status post drug-eluting stent placement to the proximal right coronary artery. He probably had a significant right ventricular infarct which is causing the shock outlined above. We will continue aspirin, Brilinta and statin medication. Beta-vince was discontinued due to bradycardia and hypotension. 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 I will probably wait for him to recover from this event and consider intervention in 4-6 weeks. (4) Right heart failure Assessment & Plan: He has severe right ventricular systolic dysfunction. This will usually resolve spontaneously over time. Fortunately, he is not having any signs of significant volume overload at this point in time. (5) Acute kidney injury superimposed on chronic kidney disease Assessment & Plan: He most likely has some degree of contrast-induced nephrotoxicity as well as ATN from the ongoing shock. His renal function and he is to improve. He has a single kidney. He continues to make good urine output. This should resolve spontaneously over the next few days. I will hold off on any additional interventional procedures until he recovers for 4 to 6 weeks. (6) Encephalopathy acute Assessment & Plan: Etiology unclear. This occurred in the setting of an acute myocardial infarction now with shock. There were no acute changes on his head CT. His mental status has improved. 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 This has resulted in chronic kidney disease. We will proceed as above. (8) Stage 3 chronic kidney disease Assessment & Plan: As above. (9) Acquired hypothyroidism Assessment & Plan: His TSH level during this admission was normal. Continue thyroid medication. AUSTEN GOMEZ JR, MD Jan 04, 2022 09:37
[2022-01-04] MEDS ORDERED: LACTULOSE SYRUP 10GM/15ML (ENULOSE) 30ML UDC PO NR (09:39)
[2022-01-04] MEDS ORDERED: SENNA W/DOCUSATE (SENOKOT S) TABLET PO NR (09:39)
[2022-01-04] MEDS ORDERED: SENNA W/DOCUSATE (SENOKOT S) TABLET PO ONE (09:45)
[2022-01-04] MEDS ORDERED: LACTULOSE SYRUP 10GM/15ML (ENULOSE) 30ML UDC PO ONE (09:45)
[2022-01-04] MEDS: ENOXAPARIN INJECTION 30 MG/0.3 ML SYR SC SCH (09:53)
--- NOTE | 2022-01-04 10:58 | Progress Note - Hospitalist ---
JENNIE NÚÑEZ 01/04/22 1058: Subjective HPI/CC On Admission Date Seen by Provider: Jan 04, 2022 Time Seen by Provider: 08:30 Chief complaint: NSTEMI status post stent in RCA complicated now with confusion, acute kidney injury, oliguria, severe bradycardia History of present illness: This is an 86-year-old white male who presented to the ER with chest pain 1 day after working in his yard and having midepigastric chest pain and found to have elevated troponin of 16 underwent cardiac catheterization by Dr. Concepcion with stent placement in RCA. 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 He stabilized but overnight became agitated requiring antipsychotics due to agitated state and transferred to ICU with continued issues with bradycardia and decreased urinary output and elevated lactic acid. Patient is currently stabilized status post central line right subclavian by Dr. SALMON and I updated the family in depth regarding lab results and prognosis in this critically ill patient. Urinary output will be managed with aggressive IV fluids. Repeat creatinine was 2.1. IV fluid boluses ordered. Systolic function was normal. If continues to decline they are willing to move to higher level for nephrology and possible dialysis and other life-sustaining treatment in the ICU. Patient appears to be very frail and thin and have poor reserve. Subjective/Events-last exam The patient was laying in bed comfortably this morning. He did report that he was not feeling well today and that he had a headache. He was attempting to eat some food this morning. He has not had a bowel movement since coming to the hospital. He was with his daughter this morning. Review of Systems General: No Chills, No Night Sweats HEENT: No Head Aches, No Visual Changes Pulmonary: Dyspnea (unchaged), Cough (unchanged ) Cardiovascular: No: Chest Pain, Palpitations Gastrointestinal: No: Nausea, Vomiting Genitourinary: No Hematuria; Other (folley in place ) Neurological: Seizures (seizure like activity this morning per nursing after my visit ); No: Change in speech Focused Exam Lactate Level 01/02/22 11:11: Lactic Acid Level 3.21*H 01/02/22 13:20: Lactic Acid Level 1.44 01/03/22 10:07: Lactic Acid Level 0.83 Objective Exam Vital Signs Vital Signs Date Time Temp Pulse Resp B/P (MAP) Pulse Ox O2 Delivery O2 Flow Rate FiO2 01/04/22 16:00 99 Room Air 01/04/22 14:00 90 15 143/84 01/04/22 08:00 37.0 01/03/22 18:00 6.00 Capillary Refill : Less Than 3 Seconds General Appearance: No Apparent Distress, Chronically ill HEENT: PERRL/EOMI, Pharynx Normal Neck: Full Range of Motion, Normal Inspection Respiratory: Chest Non Tender, Lungs Clear, Normal Breath Sounds, No Accessory Muscle Use, No Respiratory Distress Cardiovascular: Regular Rate, Rhythm, No Edema, No Murmur, Normal Peripheral Pulses Gastrointestinal: Normal Bowel Sounds, No Organomegaly, No Pulsatile Mass, Soft, Other (RUQ and epigastric tenderness on palpation ) Extremity: Normal Inspection, Normal Range of Motion, No Calf Tenderness, No Pedal Edema Neurologic/Psychiatric: Alert, Oriented x3, No Motor/Sensory Deficits, Normal Mood/Affect Skin: Normal Color, Warm/Dry Results/Procedures Lab Laboratory Tests 01/04/22 02:40 Patient resulted labs reviewed. Assessment/Plan Assessment and Plan Assess & Plan/Chief Complaint Assessment: NSTEMI Seizure like activity Aystolic event Cardiogenic shock Status post stent to RCA Leukocytosis Severe bradycardia Acute delirium Poor reserve Acute kidney injury Lactic acidosis due to volume depletion no source of sepsis Solo kidney HTN HLP Obstructive sleep apnea Chronic kidney disease Hypothyroidism Plan: NSTEMI Seizure like activity asystolic event Cardiogenic shock Status post stent to RCA Leukocytosis Severe bradycardia Acute delirium Poor reserve Acute kidney injury Solo kidney Lactic acidosis due to volume depletion no source of sepsis PT appeared to have seizure like activity this morning per nursing. He will undergo CT of the head for further workup. He will start on Kepprea 500mg IV and Avtivan 1mg Q 2hr prn for sezuire control. Continue to monitor kidney function. Awaiting urine sensitivities, he will continue on Cefepime at this time. Dopamine dose lowered, he will continue on this medication at this time. Appreciate cardiology. HTN HLP Obstructive sleep apnea Chronic kidney disease Hypothyroidism No acute management needed at this time RADHA KRAUS DO 01/05/22 0606: Subjective Subjective/Events-last exam Pt remains very complicated Decreasing Dopamine UTI maintain treatment on Cefepime but that is changing to Levaquin due to seizure like activity I did place him on Keppra 500 mg IV q 12 hours Procalcitonin yesterday was 0.77 so continue septic work up and management Creatinine was 1.67 down from 2.0 Urinary output is excellent at 1575 White count is down to 12.5 Updated family but he did have an asystole event that appeared to be seizure like activity x2 I did order CT brain to real out any type of hemorrhagic stroke He continues to be very complicated and very frail having very poor prognosis so we will continue supportive care but may need to talk to family for more realistic expectations Review of Systems General: Fatigue, Malaise Genitourinary: Other (folley in place ) Neurological: Confusion, Seizures (seizure like activity this morning per nursing after my visit ) Objective Exam General Appearance: No Apparent Distress, Anxious, Chronically ill, Thin Respiratory: No Accessory Muscle Use, No Respiratory Distress, Decreased Breath Sounds Cardiovascular: Regular Rate, Rhythm Neurologic/Psychiatric: Alert, Oriented x3, Disoriented Assessment/Plan Assessment and Plan Assess & Plan/Chief Complaint Assessment: NSTEMI Cardiogenic shock Acute kidney injury Chronic kidney disease 1 kidney Seizure-like activity Plan: Change antibiotics due to seizure-like activity Supportive care Prognosis poor to guarded Supervisory-Addendum Brief Verification & Attestation Participated in pt care: history, MDM, physical Personally performed: exam, history, MDM, supervision of care Care discussed with: Medical Student Procedures: n/a Results interpretation: Verified all documentation Verification and Attestation of Medical Student E/M Service A medical student performed and documented this service in my presence. I reviewed and verified all information documented by the medical student and made modifications to such information, when appropriate. I personally performed the physical exam and medical decision making. Radha Kraus Jan 05, 2022,06:04 JENNIE NÚÑEZ Jan 04, 2022 10:58 RADHA KRAUS DO Jan 05, 2022 06:06
--- NOTE | 2022-01-04 10:59 | Physical Therapy Progress Note ---
Therapy Progress Note Attempted PT evaluation this date. Patient and family participated in the subjective portion with patients and daughter assisting due to patient being maximally [place]. Patient cognitive x 4, however requires questions repeated numerous times due to hearing. Patient agreeable to getting out of bed, however prior to any therapeutic movement, patient demonstrates a full body spasm in which is UE/LEs all appear to contract at once. Immediately after this he dem onstrates labored breathing. Nurses contacted and referring physician all came in to room. Patient appears to have no significant affects from previous episode, however EKG performed and both nurse and physician recommend hold till 01-05-22. Will attempt PT evaluation tomorrow and progress per patient tolerance. VALENCIA BAKER PT Jan 04, 2022 10:59
[2022-01-04] MEDS ORDERED: LORazepam INJ 2 MG/ML (ATIVAN) VIAL IVP PRN (11:00)
--- NOTE | 2022-01-04 11:08 | Diagnostic Imaging Report ---
PROCEDURE: CT head without contrast. TECHNIQUE: Multiple contiguous axial images were obtained through the brain without the use of intravenous contrast. Auto Exposure Controls were utilized during the CT exam to meet ALARA standards for radiation dose reduction. INDICATION: seizures. COMPARISON: Exam is compared with study 01/02/2022. FINDINGS: There is no intracerebral hemorrhage. Patchy subcortical and periventricular white matter hypodensities are unchanged from prior and likely reflect chronic small vessel sequelae. No sulcal effacement. No findings of acute edema found. There is no evidence for an elevation of the intracranial pressures. There is no hemorrhage, and there are no abnormal extra-axial fluid collections. Orbits, paranasal sinuses, and calvarium are stable and nonacute. IMPRESSION: Some atrophy as well as extensive chronic white matter disease, stable from prior. No hemorrhage, edema, or acute finding. No change. Dictated by: Dictated on workstation # [id number]
--- NOTE | 2022-01-04 11:20 | Occ Therapy Progress Note ---
Therapy Progress Note Pt on hold per nursing. OT will attempt evaluation tomorrow 01/05/22 PK MALONE OT Jan 04, 2022 11:20
--- NOTE | 2022-01-04 11:29 | Tele-ICU Progress Note ---
Subjective Date Seen by a Provider: Jan 04, 2022 Time Seen by a Provider: 11:28 Subjective/Events-last exam (Tele-ICU Physician , Progress Note ) Available chart/ vitals / labs / Images reviewed Video assessment done using teleICU camera, rest of exam as per RN Discussed with RN , EXAM PER RN Events overnight : Afebrile FiO2 - ra I/O = -700 Drips: 50 Pressors: , hemodynamically stable Consultants: sx -line eun Hospital course: 01/01- NSTEMI, -s/p STAFF PHYSICAL THERAPY ASSISTANT stetnt o RCA 01/02 - transferred to ICU -, -hypotension , philomena ( s/p right subclavian line ) - dopa gtt 01/03- on dopa , cefepime empirically 01/04-Jerking movement- keppra ordered - CTH WNL - cefepime STOPed A/P Cardiogenic shock - dopamine 6 - attempted to titrate - getting pauses >20 sec - up -ECHO 01/02 EF 65% RVSP 34 , severely dilated right ventricle Jerking movement noted this am - keppra ordered - CTH done - No hemorrhage, edema, or acute finding. -- cefepime 01/03 empirically - WILL STOP SINCE IT CAN BE A CULPRIT ( rare side effect NSTENI -s/p STAFF PHYSICAL THERAPY ASSISTANT stetnt o RCA -Brilinta - off Beta-vince Encephalopathy acute - CTH 01/01 - aaox3 , but then ? postictal after jerking movements CKD ( Single kidney - worsening slightly with hypotension ( and s/p contrast - IMPROVING 01/04 Elev transaminases - shock liver suspected - iIMPROVING Leukocytosis, with Nl WBC on admission - low grade fever 37 - re-work up - cefepime 01/03 empirically - cx neg so far urne , blood 01/03 - ua + - CONT TO TX FOR uti Lines : 01/02 - right subclavian central venous catheter. 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 Discussed with RN to reach out if any questions or concerns A total of 31 minutes of critical care time was devoted to this patient today, required to treat and/or prevent further deterioration of critical care condition ( as above) . Sepsis Event Evaluation Height, Weight, BMI Height: 5'7.00" Weight: 129lbs. 0.0oz. [id number]; 19.60 BMI Method: Focused Exam Lactate Level 01/02/22 11:11: Lactic Acid Level 3.21*H 01/02/22 13:20: Lactic Acid Level 1.44 01/03/22 10:07: Lactic Acid Level 0.83 Exam Exam Patient acknowledged, consented, and participated in this virtual visit which was conducted using real time audio/video Vital Signs Date Time Temp Pulse Resp B/P (MAP) Pulse Ox O2 Delivery O2 Flow Rate FiO2 01/04/22 10:30 86 20 169/90 96 01/04/22 10:15 73 31 150/100 98 01/04/22 10:00 85 17 110/69 100 Room Air 01/04/22 09:45 68 19 109/63 98 01/04/22 09:30 88 19 124/84 98 01/04/22 09:15 83 24 139/72 97 01/04/22 09:00 93 131/70 Room Air 01/04/22 08:45 101 28 144/78 97 01/04/22 08:30 89 27 148/79 97 01/04/22 08:15 97 11 146/75 97 01/04/22 08:00 37.0 01/04/22 08:00 99 Room Air 01/04/22 08:00 91 30 153/79 97 Room Air 01/04/22 07:45 88 19 126/82 96 01/04/22 07:30 93 21 152/80 98 01/04/22 07:15 92 12 154/82 97 01/04/22 07:00 92 01/04/22 07:00 89 11 139/77 94 Room Air 01/04/22 07:00 95 15 164/85 98 01/04/22 06:00 89 11 139/77 94 Room Air 01/04/22 05:00 91 15 153/86 96 Room Air 01/04/22 04:00 97 140/74 96 Room Air 01/04/22 04:00 99 Room Air 01/04/22 03:00 87 22 151/82 95 Room Air 01/04/22 02:00 88 25 133/67 95 Room Air 01/04/22 01:00 96 19 155/86 93 Room Air 01/04/22 01:00 96 01/04/22 00:00 89 23 143/81 99 Room Air 01/03/22 23:59 99 Room Air 01/03/22 23:10 93 141/75 01/03/22 23:00 90 20 141/75 93 Room Air 01/03/22 22:00 96 23 137/68 100 Room Air 01/03/22 21:00 92 19 136/74 94 Room Air 01/03/22 20:00 90 19 143/78 98 Room Air 01/03/22 20:00 100 Room Air 01/03/22 19:28 37.0 01/03/22 19:00 92 01/03/22 19:00 92 22 135/70 95 Room Air 01/03/22 18:00 90 17 159/79 99 OxyMask 6.00 01/03/22 17:00 76 17 145/76 99 OxyMask 6.00 01/03/22 16:00 89 22 132/77 98 OxyMask 6.00 01/03/22 15:45 36.8 01/03/22 15:42 100 Room Air 01/03/22 15:00 97 22 146/76 98 OxyMask 6.00 01/03/22 14:00 93 16 148/72 99 OxyMask 6.00 01/03/22 13:00 80 01/03/22 13:00 90 16 137/77 97 OxyMask 6.00 01/03/22 12:43 97 Room Air 01/03/22 12:15 75 01/03/22 12:00 36.7 01/03/22 12:00 85 15 153/78 100 OxyMask 6.00 I & O 01/04/22 07:00 Intake Total 735 ml Output Total 1700 ml Balance -965 ml Height & Weight Height: 5'7.00" Weight: 129lbs. 0.0oz. [id number]; 19.60 BMI Method: General Appearance: No Apparent Distress, Chronically ill HEENT: PERRL/EOMI, Pharynx Normal Neck: Full Range of Motion, Normal Inspection Respiratory: Chest Non Tender, Lungs Clear, Normal Breath Sounds, No Accessory Muscle Use, No Respiratory Distress Cardiovascular: Regular Rate, Rhythm, No Edema, No Murmur, Normal Peripheral Pulses Capillary Refill: Less Than 3 Seconds Gastrointestinal: normal bowel sounds, soft; No distended, No guarding, No rebound; tenderness (Mild epigastric tenderness) Extremity: Normal Inspection, Normal Range of Motion, No Calf Tenderness, No Pedal Edema Neurologic/Psychiatric: Alert, Oriented x3, No Motor/Sensory Deficits, Normal Mood/Affect Skin: Normal Color, Warm/Dry Results Lab Laboratory Tests 01/02/22 11:45 01/03/22 03:49 01/04/22 02:40 Assessment/Plan Assessment/Plan ` DOMONIQUE CLAUDIO MD Jan 04, 2022 11:29
[2022-01-04] MEDS ORDERED: PANTOPRAZOLE 40 MG (PROTONIX) TAB PO ONE (12:45)
[2022-01-04] MEDS ORDERED: PANTOPRAZOLE 40 MG (PROTONIX) VIAL IV ONE (13:45)
--- NOTE | 2022-01-04 13:49 | Speech Therapy Progress Note ---
Therapy Progress Note Speech Pathology: Speech pathology received and acknowledges the consultation for a clinical bedside swallow evaluation. The evaluation will be completed on 01/05/2022. Thank you for the consultation. TRINH WORTHINGTON Jan 04, 2022 13:49
[2022-01-04] MEDS: LEVOFLOXACIN 750 MG/D5W 150 ML PRE-MIX IV SCH (14:41)
[2022-01-04] MEDS: DOPamine DRIP 250 ML IV SCH (20:16)
[2022-01-04] MEDS: ZIPRASIDONE 20 MG INJ (GEODON) VIAL IM PRN ×2 (21:21→22:07)
[2022-01-05] MEDS: DexMEDEtomidine 250 ML DRIP 250 ML IV SCH (02:26)
[2022-01-05] MEDS: DOCUSATE SODIUM 100 MG (COLACE) CAP PO SCH ×3 (03:08→21:05)
[2022-01-05] MEDS: ROSUVASTATIN 20 MG (CRESTOR) TABLET PO SCH ×3 (03:08→21:05)
[2022-01-05 04:00] LABS: BASOPHILS % (AUTO) 0 % (0-10); EOSINOPHILS % (AUTO) 0 % (0-10); HEMATOCRIT 36 % (40-54); HEMOGLOBIN 12.2 g/dL (13.3-17.7); LYMPHOCYTES # (AUTO) 0.8 10^3/uL (1.0-4.0); LYMPHOCYTES % (AUTO) 7 % (12-44); MEAN CORPUSCULAR HEMOGLOBIN 31 pg (25-34); MEAN CORPUSCULAR HGB CONC 34 g/dL (32-36); MEAN CORPUSCULAR VOLUME 93 fL (80-99); MEAN PLATELET VOLUME 10.4 fL (9.0-12.2); MONOCYTES # (AUTO) 0.9 10^3/uL (0.0-1.0); MONOCYTES % (AUTO) 9 % (0-12); NEUTROPHILS # (AUTO) 8.9 10^3/uL (1.8-7.8); NEUTROPHILS % (AUTO) 83 % (42-75); PLATELET COUNT 156 10^3/uL (130-400); WHITE BLOOD COUNT 10.7 10^3/uL (4.3-11.0)
[2022-01-05 04:11] LABS: POTASSIUM 4.1 MMOL/L (3.6-5.0)
[2022-01-05 04:12] LABS: CALCIUM 8.7 MG/DL (8.5-10.1)
[2022-01-05 04:13] LABS: TOTAL PROTEIN 6.2 GM/DL (6.4-8.2)
[2022-01-05 04:15] LABS: BILIRUBIN,TOTAL 0.9 MG/DL (0.1-1.0)
[2022-01-05 04:17] LABS: CREATININE SERUM 1.38 MG/DL (0.60-1.30)
[2022-01-05] MEDS: POTASSIUM CL 10MEQ/50ML IVPB 50 ML IV SCH (04:50)
[2022-01-05] MEDS: MAGNESIUM 1 GM/100 ML IVPB 100 ML IV SCH (04:50)
[2022-01-05] MEDS: KCL 20 MEQ TAB (K-DUR) PO SCH (04:51)
[2022-01-05] MEDS: TICAGRELOR 90 MG TABLET (BRILINTA) PO SCH ×2 (08:56→21:05)
[2022-01-05] MEDS: PANTOPRAZOLE 40 MG (PROTONIX) VIAL IV SCH (08:58)
[2022-01-05] MEDS ORDERED: ASPIRIN 300 MG (5 GR) SUPPOSITORY PR SCH (09:00)
[2022-01-05] MEDS ORDERED: PANTOPRAZOLE 40 MG (PROTONIX) TAB PO SCH (09:00)
[2022-01-05] MEDS: ENOXAPARIN INJECTION 30 MG/0.3 ML SYR SC SCH (09:07)
--- NOTE | 2022-01-05 09:10 | Cardiology Progress Note ---
Progress Note-Cardiology Events since last exam Date Seen by Provider: Jan 05, 2022 Time Seen by Provider: 09:05 Events since last exam I am following him due to NSTEMI treated with 1 drug-eluting stent to the right coronary artery complicated by right ventricular infarct with right ventricular heart failure. On 01/04 he had some seizure activity in the morning. Following that, he had been agitated for much of the day and did not sleep well last evening. He continues to have intermittent bradycardia when he is sleeping. He is again difficult to communicate with due to hearing loss but his family seems to be able to communicate with him quite well. He does not report chest pain, dyspnea, palpitations or ankle edema. After the seizure-like event on 01/04 he had a swallow study which he did not pass and was not able to take any oral medications for the rest of the day. He will have another swallow study this morning. His tells me that he had esophageal strictures in the past that have required dilatation. Because of this, he often keeps food and pills in his mouth for quite some time before he feels he is ready to swallow. Certain portions of this document may have been dictated utilizing voice recognition technology. Inherent to this technology, typographical and grammatical errors may exist. As much as I am diligent to identify and correct these mistakes, some errors may remain in the document. Vitals Last set of Vitals Signs Vital Signs 01/03/22 01/05/22 01/05/22 18:00 08:00 08:01 Temp 36.4 Pulse 93 Resp 28 B/P (MAP) 162/86 Pulse Ox 99 O2 Delivery Room Air O2 Flow Rate 6.00 Labs Labs Laboratory Tests 01/05/22 03:45 Exam Vital Signs Vital Signs Date Time Temp Pulse Resp B/P (MAP) Pulse Ox O2 Delivery O2 Flow Rate FiO2 01/05/22 08:01 36.4 01/05/22 08:00 99 Room Air 01/05/22 08:00 93 28 162/86 01/03/22 18:00 6.00 Physical Exam General: Alert. No acute distress. He is very hard of hearing. Eye: No xanthelasma. HENT: Normocephalic. Neck: Jugular venous pressure does not appear elevated. Respiratory: Lungs are clear to auscultation. Respirations are non-labored. Breath sounds are equal. Symmetrical chest wall expansion. Cardiovascular: Normal rate. Regular rhythm. No murmur. No gallop. No edema. Gastrointestinal: Soft. Normal bowel sounds. Skin: Warm. Dry. Neurologic: Alert and oriented to person and time but not place. He knows he is in a hospital but he does not know where. Cranial nerves 3-11 grossly intact. Psychiatric: Cooperative but somewhat confused. Labs Laboratory Tests Test 01/04/22 13:11 01/04/22 17:28 01/05/22 00:27 01/05/22 03:45 Range/Units Glucometer 122 H 87 105 70-110 MG/DL White Blood Count 10.7 4.3-11.0 10^3/uL Red Blood Count 3.90 L 4.30-5.52 10^6/uL Hemoglobin 12.2 L 13.3-17.7 g/dL Hematocrit 36 L 40-54 % Mean Corpuscular Volume 93 80-99 fL Mean Corpuscular Hemoglobin 31 25-34 pg Mean Corpuscular Hemoglobin Concent 34 32-36 g/dL Red Cell Distribution Width 12.6 10.0-14.5 % Platelet Count 156 130-400 10^3/uL Mean Platelet Volume 10.4 9.0-12.2 fL Immature Granulocyte % (Auto) 1 % Neutrophils (%) (Auto) 83 H 42-75 % Lymphocytes (%) (Auto) 7 L 12-44 % Monocytes (%) (Auto) 9 0-12 % Eosinophils (%) (Auto) 0 0-10 % Basophils (%) (Auto) 0 0-10 % Neutrophils # (Auto) 8.9 H 1.8-7.8 10^3/uL Lymphocytes # (Auto) 0.8 L 1.0-4.0 10^3/uL Monocytes # (Auto) 0.9 0.0-1.0 10^3/uL Eosinophils # (Auto) 0.0 0.0-0.3 10^3/uL Basophils # (Auto) 0.0 0.0-0.1 10^3/uL Immature Granulocyte # (Auto) 0.1 0.0-0.1 10^3/uL Sodium Level 142 135-145 MMOL/L Potassium Level 4.1 3.6-5.0 MMOL/L Chloride Level 108 H 98-107 MMOL/L Carbon Dioxide Level 19 L 21-32 MMOL/L Anion Gap 15 H 5-14 MMOL/L Blood Urea Nitrogen 29 H 7-18 MG/DL Creatinine 1.38 H 0.60-1.30 MG/DL Estimat Glomerular Filtration Rate 50 BUN/Creatinine Ratio 21 Glucose Level 108 H 70-105 MG/DL Calcium Level 8.7 8.5-10.1 MG/DL Corrected Calcium 9.5 8.5-10.1 MG/DL Magnesium Level 2.0 1.6-2.4 MG/DL Total Bilirubin 0.9 0.1-1.0 MG/DL Aspartate Amino Transf (AST/SGOT) 56 H 5-34 U/L Alanine Aminotransferase (ALT/SGPT) 76 H 0-55 U/L Alkaline Phosphatase 97 40-136 U/L Total Protein 6.2 L 6.4-8.2 GM/DL Albumin 3.0 L 3.2-4.5 GM/DL Diagnosis/Problems Diagnosis/Problems (1) Cardiogenic shock Assessment & Plan: I suspect this is due to significant right ventricular infarction. He has received a good amount of intravenous fluid which is the treatment of right ventricular infarct. His blood pressures had been improving but he is still requiring dopamine. I stopped intravenous fluids on 01/04. We will continue to attempt to wean dopamine. All antihypertensive medication is on hold. I will start him on midodrine to see if we can wean off the dopamine. This is assuming he can pass his swallow study and start taking oral medications again. (2) Sinus bradycardia Assessment & Plan: He continues to have significant bradycardia and some pauses. He likely had involvement of the SA jean pierre artery and AV jean pierre arteries during his acute myocardial infarction. Typically, these areas will recover over time but this could take a few more days. If he continues to have pauses in 48 hours, we may need to consider pacemaker implantation on Monday. (3) Non-ST elevation myocardial infarction (NSTEMI), initial care episode Assessment & Plan: He is now status post drug-eluting stent placement to the proximal right coronary artery. He probably had a significant right ventricular infarct which is causing the shock outlined above. We will continue aspirin, Brilinta and statin medication. Beta-vince was discontinued due to bradycardia and hypotension. 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 I will probably wait for him to recover from this event and consider intervention in 4-6 weeks. (4) Right heart failure Assessment & Plan: He has severe right ventricular systolic dysfunction. This will usually resolve spontaneously over time. Fortunately, he is not having any signs of significant volume overload from the intravenous fluid he received. (5) Acute kidney injury superimposed on chronic kidney disease Assessment & Plan: He most likely had some degree of contrast-induced nephrotoxicity as well as ATN from the ongoing shock. His renal function continues to improve. 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 He continues to make good urine output. This should resolve spontaneously over the next few days. I will hold off on any additional interventional procedures until he recovers for 4 to 6 weeks. (6) Encephalopathy acute Assessment & Plan: Etiology unclear. This occurred in the setting of an acute myocardial infarction now with shock. There were no acute changes on his head CT. His mental status has improved although after the seizure-like activity on 01/04, he has again been intermittently confused. 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 This has resulted in chronic kidney disease. We will continue to monitor his renal function closely. (8) Stage 3 chronic kidney disease Assessment & Plan: As above. (9) Acquired hypothyroidism Assessment & Plan: His TSH level during this admission was normal. Continue thyroid medication. AUSTEN GOMEZ JR, MD Jan 05, 2022 09:10
[2022-01-05] MEDS: MIDODRINE 10 MG (PROAMATINE) TAB PO SCH ×3 (10:01→21:05)
--- NOTE | 2022-01-05 10:39 | Physical Therapy Evaluation ---
PT Evaluation-General Medical Diagnosis Admission Date Jan 01, 2022 at 14:43 Medical Diagnosis: NSTEMI Onset Date: Jan 01, 2022 Therapy Diagnosis Therapy Diagnosis: impaired mobility, strength, endurance Height/Weight Height (Feet): 5 Height (Inches): 7.00 Weight (Pounds): 129 Weight (Ounces): 0.0 Precautions Precautions/Isolations: Aspiration, Seizure, Fall Prevention Weight Bear Status Right Lower Extremity: Right Weight Bearing/Tolerated Left Lower Extremity: Left Weight Bearing/Tolerated Referral Physician: Radha Bucio DO Reason for Referral: Evaluation/Treatment Medical History Additional Medical History Past Medical History Surgeries: Gallbladder, Nephrectomy, Orthopedic Sleep Apnea Currently Using CPAP: No (HASNT USED CPAP FOR 5-6 YEARS) Coronary Artery Disease, Hypertension Gastroesophageal Reflux Arthritis Hypothyroidsim Hearing Impairment: Hard of Hearing, Hearing Aide Right Blood Disorders: No Reviewed History: Yes Social History Home: Single Level Current Living Status: Spouse Entry Into Home: Stairs Without Railing PT Steps Into Home: 1 Prior Prior Level of Function SCALE: Activities may be completed with or without assistive devices. 2-Yyyptoggir-ymhpwpn completes the activity by him/herself with no assistance from a helper. 5-Set-up or Clean-up Assistance-helper sets up or cleans up; patient completes activity. Slade assists only prior to or following the activity. 4-Supervision or Touching Assistance-helper provides verbal cues and/or touching/steadying and/or contact guard assistance as patient completes activity. Assistance may be provided throughout the activity or intermittently. 3-Partial/Moderate Assistance-helper does LESS THAN HALF the effort. Slade lifts, holds or supports trunk or limbs, but provides less than half the effort. 2-Substantial/Maximal Assistance-helper does MORE THAN HALF the effort. Slade lifts or holds trunk or limbs and provides more than half the effort. 6-Yibzhowba-athmat does ALL the effort. Patient does none of the effort to complete the activity. Or, the assistance of 2 or more helpers is required for the patient to complete the activity. If activity was not attempted, code reason: 7-Patient Refused. 9-Not Applicable-not attempted and the patient did not perform the activity be fore the current illness, exacerbation or injury. 10-Not Attempted due to Environmental Limitations-(lack of equipment, weather restraints, etc.). 88-Not Attempted due to Medical Conditions or Safety Concerns. Bed Mobility: 6 Transfers (B,C,W/C): 6 Gait: 6 Stairs: 6 Indoor Mobility (Ambulation): Independent Stairs: Independent states he uses a walking stick on occasion PT Evaluation-Current Subjective Patient in bed pre tx, agrees to PT, has unrated abdominal pain. Nurse states she doesn't want him out of bed yet. Pt/Family Goals none stated Objective Patient Orientation: Person, Unable to Assess (closed eyes, difficulty communicating), Mumbles Attachments: Quinteros Catheter, IV ROM/Strength ROM Lower Extremities WNL Strength Lower Extremities LLE (hip flexion 4/5, knee flexion 4/5, knee extension 4/5, dorsiflexion 4/5), RLE (hip flexion 4/5, knee flexion 4/5, knee extension 4/5, dorsiflexion 4/5) Sensory Hearing: Impaired Treatment BLE PROM/stretching and LE exercises x10 (AP, HS, SLR) Assessment/Needs Patient in bed post tx with nurse call, phone, tray, family in room. Patient has impaired mobility, strength, endurance. Was not able to get him out of bed or sitting but he was able to perform some LE exercises. 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 Time Frame: Jan 12, 2022 Roll Left & Right (QC): 3 Sit to Lying (QC): 3 Lying-Sitting on Side/Bed(QC): 3 Sit to Stand (QC): 3 Chair/Twd-gg-Fhsxg Xfer(QC): 3 Walk 10 feet (QC): 3 PT Plan Problem List Problem List: Activity Tolerance, Functional Strength, Safety, Balance, Gait, Transfer, Bed Mobility, ROM Treatment/Plan Treatment Plan: Continue Plan of Care Treatment Plan: Bed Mobility, Education, Functional Activity Chiqui, Functional Strength, Gait, Safety, Therapeutic Exercise, Transfers Treatment Duration: Jan 12, 2022 Frequency: 6 times per week Estimated Hrs Per Day: .25 hour per day Patient and/or Family Agrees t: Yes Safety Risks/Education Patient Education: Correct Positioning, Safety Issues Teaching Recipient: Patient Teaching Methods: Demonstration, Discussion Response to Teaching: Reinforcement Needed Discharge Recommendations Plan Patient will perform bed mobility and transfer training, balance and endurance training, functional strengthening, stair training, gait training, and education, to improve functional mobility and independence at home. Therapy Discharge Recommendati: Scheduled Assistance, Home & Family, Post Acute PT Time/GCodes Time In: 1015 Time Out: 1028 Total Billed Treatment Time: 13 Total Billed Treatment 1 visit LINDA Hernandez' JODI SAEED PT Jan 05, 2022 10:39
--- NOTE | 2022-01-05 10:42 | Occupational Therapy Eval ---
OT Evaluation-General/PLF Medical Diagnosis Admission Date Jan 01, 2022 at 14:43 Medical Diagnosis: NSTEMI s/p stent Onset Date: Jan 01, 2022 Therapy Diagnosis Therapy Diagnosis: Impaired adls, endurance, strength, cognition Height/Weight Height (Feet): 5 Height (Inches): 7.00 Weight (Pounds): 129 Weight (Ounces): 0.0 Precautions Precautions/Isolations: Aspiration, Seizure, Fall Prevention Referral Physician: Rupinder Referral Reason: Evaluation/Treatment Medical History Current History Pt presents with chest pain and increased confusion. Found to have elevated troponin levels. He underwent cardiac cath with stent placement. Seizure like event 01/04. Per family, pt lives with in a single story home. He was indep with adls, completes all IADLs. He uses a cane only when out in the community. Reviewed History: Yes Social History Home: Single Level Current Living Status: Spouse Steps Into Home: 1 ADL-Prior Level of Function SCALE: Activities may be completed with or without assistive devices. 4-Seqylrnpao-modrzfp completes the activity by him/herself with no assistance from a helper. 5-Set-up or Clean-up Assistance-helper sets up or cleans up; patient completes activity. [place] assists only prior to or following the activity. 4-Supervision or Touching Assistance-helper provides verbal cues and/or touching/steadying and/or contact guard assistance as patient completes activity. Assistance may be provided throughout the activity or intermittently. 3-Partial/Moderate Assistance-helper does LESS THAN HALF the effort. [place] lifts, holds or supports trunk or limbs, but provides less than half the effort. 2-Substantial/Maximal Assistance-helper does MORE THAN HALF the effort. [place] lifts or holds trunk or limbs and provides more than half the effort. 6-Poiducdkw-qgpmby does ALL the effort. Patient does none of the effort to complete the activity. Or, the assistance of 2 or more helpers is required for the patient to complete the activity. If activity was not attempted, code reason: 7-Patient Refused. 9-Not Applicable-not attempted and the patient did not perform the activity before the current illness, exacerbation or injury. 10-Not Attempted due to Environmental Limitations-(lack of equipment, weather restraints, etc.). 88-Not Attempted due to Medical Conditions or Safety Concerns. Self Care: Independent Functional Cognition: Independent DME/Equipment: Grab Bars, Tub/Shower Drive Self: Yes OT Current Status Subjective Pt moaning/grimacing throughout eval. No numerical values given regarding pain. He does point to abdomen. RN requests bed level eval only. Appearance Pt left supine in bed, family in the room. Mental Status/Objective Patient Orientation: Unable to Assess Attachments: [place] Catheter, IV, Telemetry Current Hearing Aids: Yes (R ear) Hand Dominance: Left Upper Extremity ROM Extra time to achieve 3/4 AROM bilateral shoulders. Bilateral elbows appear WFL. All movements limited by pain. Upper Extremity Strength Not formally tested as pt grimacing with touch. Anticipate at least 2+-3/5 throughout ADL-Treatment RN requests bed level eval only. Pt grimacing in pain with very light touch. Dep endent x2 to supine scoot towards HOB. Pt requires several repetitions of commands due to being [place] but appears to be able to hear his daughter fairly well. Daughter repeats all cues which pt is then able to perform with extra time. Education to family on proper positioning and pressure relief. Education OT Patient Education: Correct positioning, Modified ADL techniques, Purpose of tx/functional activities, Reviewed precautions, Safety issues, Transfer techniques Teaching Recipient: Patient, Family Teaching Methods: Discussion Response to Teaching: Verbalize Understanding, Reinforcement Needed OT Pharmaceutical Development Technician Goals Pharmaceutical Development Technician Goals Time Frame: Jan 26, 2022 Eating (QC): 5 Oral Hygiene (QC): 5 Toileting Hygiene (QC): 4 Shower/Bathe Self (QC): 4 Upper Body Dressing (QC): 4 Lower Body Dressing (QC): 4 On/Off Footwear (QC): 4 1=Demonstrate adherence to instructed precautions during ADL tasks. 2=Patient will verbalize/demonstrate understanding of assistive devices/modifications for ADL. 3=Patient will improve strength/tolerance for activity to enable patient to perform ADL's. OT Education/Plan Problem List/Assessment Assessment: Decreased Activ Tolerance, Decreased Safety Aware, Decreased UE Strength, Dependent Transfers, Impaired Bed Mobility, Impaired Cognition, Impaired Funct Balance, Impaired Self-Care Skills, Restricted Funct UE ROM Discharge Recommendations Plan/Recommendations: Continue POC Comment ongoing assessment warranted Treatment Plan/Plan of Care Treatment,Training & Education: Yes Patient would benefit from OT for education, treatment and training to promote independence in ADL's, mobility, safety and/or upper extremity function for ADL's. Plan of Care: ADL Retraining, Caregiver Training, Cognitive Retraining, Functional Mobility, Group Exercise/Act as Ind, UE Funct Exercise/Act Treatment Duration: Jan 26, 2022 Frequency: 3 times per week (3-5x/week) Estimated Hrs Per Day: .25 hour per day Time/GCodes Start Time: 10:17 Stop Time: 10:29 Total Time Billed (hr/min): 12 Billed Treatment Time 1 visit Smiley Gannon OT Jan 05, 2022 10:42
--- NOTE | 2022-01-05 12:08 | ST Dysphagia Evaluation ---
Speech Evaluation-General Medical Diagnosis NSTEMI s/p stent Onset Date: Jan 01, 2022 Therapy Diagnosis Therapy Diagnosis: Oropharyngeal Dysphagia Precautions Precautions: Fall, Aspiration Precautions/Isolations: Aspiration, Fall Prevention, Standard Precautions Referral Referring Physician: Dr. Bucio Reason for Referral: Evaluation/Treatment Medical History Current History The patient is an 86-year-old male with a past medical history of hypothyroidism, sleep apnea, CAD, HTN, GERD, arthritis, who reported to [facility] secondary to epigastric pain. The patient was diagnosed with NSTEMI and admitted for additional treatment. 01/03/2022: Heart size stable. Right-sided line has tip overlying the SVC. Areas of scarring or atelectasis in both bases are noted, similar to prior. There is no significant effusion or pneumothorax. Reviewed History: Yes Social History Current Living Status: Spouse Speech PLF/Current-Dysphagia Prior Level of Function The patient was receiving a "soft" diet consistency with thin liquids at home. Please see the subjective section for additional information provided by family members throughout the evaluation. Subjective The patient was lying in bed, sleeping upon entrance to his room by the clinician. The patient has his and his daughter present at bedside. The patient is on room air at the time.The patient was positioned upright in bed for safe swallowing. The clinician attempted to visit with the patient regarding his swallowing function, concerns, and difficulties however the patient's daughter and continued to speak over the patient. The patient's stated the patient does not eat "corn or peas, well sometimes he does but he spit it out yesterday." Additionally, the family stated the patient does not eat lettuce due to mastication difficulty. The patient's swallowing technique was provided by the patient's daughter as she reported, "He swishes it around in his mouth before he swallows. He also clears phlegm every morning, it's why it clears his throat and coughs." With additional information gathering, the clinician learns the patient has undergone multiple esophageal dilations in the past, with his most recent proce dure occurring approximately one year ago. Cognitive Status Patient Orientation: Confused Oral Motor Skills Dentition: Natural Ability to Follow Directions: Fair Oral Expression Ability: Moderate Impairment Voice Voice Phonatory-Based Quality: Breathy, Weak Voice Pitch: Normal Voice Loudness: Moderately Soft/Quiet Face Facial Symmetry: Symmetrical Oral-Facial Assessment Oral-Facial Dentition: Normal Labial Seal Description: Weak Smile: Reduced ROM Puff Cheeks: Reduced Strength Lingual Protrusion: Normal Lingual ROM: Normal Lingual Strength: Abnormal Volitional Dry Swallow: Yes Voluntary Cough: No Can Clear Throat Volitionally: No Productive Cough: Yes Productive Throat Clear: Yes Dysphagia Evaluation Consistencies Presented: Thin Liquid, Mechanical Soft, [place] Thick Liquid, Pureed The patient demonstrated the ability to draw the bolus material appropriately from the teaspoon and straw. Prolonged mastication was present with the softened cracker and overall reduced lingual coordination for bolus formation. Pharyngeal Phase: Multiple Swallow Attempts Funct. Velo/Pharyngeal Symptom: Clears Throat, Cough After Swallow, Wet Voice The patient displayed a suspected delayed pharyngeal onset of the swallow for each consistency presented. The following results were present: - Thin Liquid: The patient was provided five thin liquid teaspoons. The patient demonstrated an immediate cough and throat clear following three of five teaspoons. - [place]-Thick Liquid: The patient was provided five NTL teaspoons and four ounces of NTL via straw. Following one, large, consecutive drink of NTL via straw the patient demonstrated an immediate cough. Overt s/s of suspected aspiration were not demonstrated with teaspoons trials of NTL or single, small sips of NTL via straw. - Puree: Overt s/s of suspected aspiration were not demonstrated with puree trials. - Softened Cracker: The patient demonstrated a delayed throat clear following the swallow of the softened cracker. Dietary Recommendations: Pureed Liquid Recommendations: [place] Consistancy Recommendations: - Dysphagia one (pureed) with mildly thick liquids (nectar-thick liquids), as tolerated. - Fully upright and alert for P.O. intake. - 1:1 feeding with supervision and monitoring of P.O. intake by staff or family. - Small, single bites and sips, only. - Crush medication and place in puree for administration. - Monitor for s/s of suspected aspiration with P.O. intake. If demonstrated, contact speech pathology. - Speech pathology to assess diet tolerance two times per week or as appropriate. Dysphagia Evaluation Summary The patient displays oropharyngeal dysphagia characterized by decreased lingual coordination, prolonged mastication, a delayed onset of the pharyngeal swallow, poor airway protection throughout the swallow response, and overall weakness. The patient's daughter and intermittently, unknowingly provide distractions to the patient and interference of the evaluation throughout, as they frequently speak over the patient and clinician and justify the patient's s/s of suspected aspiration ("The water is too cold. That's just him, he always does that."). Extensive education was provided to the family throughout the evaluation and rationale for the clinician's recommendations were discussed. Barriers to Learning Fatigue, Cognition. Speech Short Term Goals Short Term Goals Short Term Goals 1. The patient, family, and staff will follow safe swallowing procedures to reduce aspiration risks with P.O. intake. Time Frame-STG: Four Days. Speech Nursing Home Goals Fairground Operator Goals 1. The patient will tolerate the least restrictive diet consistency without s/s of suspected aspiration. Time Frame: One Week. Speech-Plan Treatment Plan Speech Therapy Treatment Plan: Continue Plan of Care Treatment Duration: Jan 12, 2022 Frequency: 2 times per week Estimated Hrs Per Day: .25 hour per day Rehab Potential: Guarded Pt/Family Agrees to Plan: Yes Safety Risks/Education Teaching Recipient: Patient, Family Teaching Methods: Discussion Response to Teaching: Reinforcement Needed Education Topics Provided: Multiple extensive discussions occured with the patient's and daughter throughout the evaluation and following. The results of the evaluation and the recommendations were provided. Time Speech Therapy Time In: 08:46 Speech Therapy Time Out: 09:25 Total Billed Time: 29 Billed Treatment Time 1, JAZZ BOWEN [facility] Jan 05, 2022 12:08
--- NOTE | 2022-01-05 12:13 | Progress Note - Hospitalist ---
JENNIE NÚÑEZ 01/05/22 1213: Subjective HPI/CC On Admission Date Seen by Provider: Jan 05, 2022 Time Seen by Provider: 09:15 Chief complaint: NSTEMI status post stent in RCA complicated now with confusion, acute kidney injury, oliguria, severe bradycardia History of present illness: This is an 86-year-old white male who presented to the ER with chest pain 1 day after working in his yard and having midepigastric chest pain and found to have elevated troponin of 16 underwent cardiac catheterization by Dr. Concepcion with stent placement in RCA. 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 He stabilized but overnight became agitated requiring antipsychotics due to agitated state and transferred to ICU with continued issues with bradycardia and decreased urinary output and elevated lactic acid. Patient is currently stabilized status post central line right subclavian by Dr. SALMON and I updated the family in depth regarding lab results and prognosis in this critically ill patient. Urinary output will be managed with aggressive IV fluids. Repeat creatinine was 2.1. IV fluid boluses ordered. Systolic function was normal. If continues to decline they are willing to move to higher level for nephrology and possible dialysis and other life-sustaining treatment in the ICU. Patient appears to be very frail and thin and have poor reserve. Subjective/Events-last exam The patient was laying in bed this morning and did not appear to be in any acute distress. He was seen by speech therapy before my visit, where he consumed a small amount of water and apple sauce. Per nursing: he was agitated early this morning and was given precedex. The patient today was complaining of pain in the RLQ. He continues to appear very frail. Review of Systems General: No Chills, No Night Sweats HEENT: No Head Aches, No Visual Changes Pulmonary: Dyspnea (no change ), Cough (no change ) Cardiovascular: No: Palpitations, Edema Gastrointestinal: No: Nausea, Vomiting Neurological: No: Change in speech Focused Exam Lactate Level 01/03/22 10:07: Lactic Acid Level 0.83 Objective Exam Vital Signs Vital Signs Date Time Temp Pulse Resp B/P (MAP) Pulse Ox O2 Delivery O2 Flow Rate FiO2 01/05/22 12:49 84 01/05/22 12:00 21 142/84 100 Room Air 01/05/22 08:01 36.4 01/03/22 18:00 6.00 Capillary Refill : Less Than 3 Seconds General Appearance: No Apparent Distress, Chronically ill HEENT: Moist Mucous Membranes Neck: Full Range of Motion, Normal Inspection Respiratory: Chest Non Tender, Lungs Clear, Normal Breath Sounds, No Accessory Muscle Use, No Respiratory Distress Cardiovascular: Regular Rate, Rhythm, No Edema, No Gallop, No JVD, No Murmur, Normal Peripheral Pulses Gastrointestinal: Normal Bowel Sounds, No Organomegaly, No Pulsatile Mass, Non Tender, Soft Extremity: Normal Inspection, Normal Range of Motion, Non Tender, No Calf Tenderness, No Pedal Edema Neurologic/Psychiatric: Alert, Oriented x3, Normal Mood/Affect Skin: Normal Color, Warm/Dry Results/Procedures Lab Laboratory Tests 01/05/22 03:45 Patient resulted labs reviewed. Assessment/Plan Assessment and Plan Assess & Plan/Chief Complaint Assessment: NSTEMI Seizure like activity Aystolic event Presumed UTI with cultures showing no growth empirically treated with antibiotics Cardiogenic shock Status post stent to RCA Leukocytosis Severe bradycardia Acute delirium Poor reserve Acute kidney injury Lactic acidosis due to volume depletion no source of sepsis Solo kidney HTN HLP Obstructive sleep apnea Chronic kidney disease Hypothyroidism Plan: NSTEMI Seizure like activity asystolic event Presumed UTI with cultures showing no growth empirically treated with antibiotics Cardiogenic shock Status post stent to RCA Leukocytosis Severe bradycardia Acute delirium Poor reserve Acute kidney injury Solo kidney Lactic acidosis due to volume depletion no source of sepsis Continue supportive care. Continue on Levaquin due to his seizure like activity he had yesterday. Continue on dopamine. Continue on Keppra 500mg. PT will start on Midodrine 5mg TID for blood pressure control. PT could might need a pace maker. He could possibly need to be in a detention facility if [place]. If he is able to be [place] home he would need significant help, his daughter does seem to be very involved in his care and could possibly help at home. Appreciate cardiology. HTN HLP Obstructive sleep apnea Chronic kidney disease Hypothyroidism No acute management needed at this time RADHA KRAUS DO 01/06/22 0534: Subjective Subjective/Events-last exam Pt is doing a lot better BP is 106/48 he is on Midodrine 5 mg TID Speech therapy will see him for dysphasia now that he can eat and drink Complaining of non specific abdominal pain Precedex has been helpful for the agitation Good urinary output of 3975 yesterday White count now normal at 10.7 Creatinine was 1.38 On renal dose Levaquin Review of Systems General: Fatigue, Malaise Neurological: Confusion Objective Exam General Appearance: No Apparent Distress, WD/WN, Chronically ill, Thin Respiratory: Lungs Clear, Normal Breath Sounds Cardiovascular: Regular Rate, Rhythm Neurologic/Psychiatric: Alert, Oriented x3, Depressed Affect, Disoriented Assessment/Plan Assessment and Plan Assess & Plan/Chief Complaint ICU care Supportive care Supervisory-Addendum Brief Verification & Attestation Participated in pt care: history, MDM, physical Personally performed: exam, history, MDM, supervision of care Care discussed with: Medical Student Procedures: n/a Results interpretation: Verified all documentation Verification and Attestation of Medical Student E/M Service A medical student performed and documented this service in my presence. I reviewed and verified all information documented by the medical student and made modifications to such information, when appropriate. I personally performed the physical exam and medical decision making. Radha Kraus Jan 06, 2022,05:33 JENNIE NÚÑEZ Jan 05, 2022 12:13 RADHA KRAUS DO Jan 06, 2022 05:34
[2022-01-05] MEDS: DOPamine DRIP 250 ML IV SCH (14:30)
--- NOTE | 2022-01-05 14:35 | Tele-ICU Progress Note ---
Subjective Date Seen by a Provider: Jan 05, 2022 Time Seen by a Provider: 08:09 Subjective/Events-last exam (Tele-ICU Physician , Progress Note ) Available chart/ vitals / labs / Images reviewed Video assessment done using teleICU camera, rest of exam as per RN Discussed with RN , EXAM PER RN Events overnight : Afebrile FiO2 - ra I/O = neg 3L Drips: 50 Pressors: , hemodynamically stable Consultants: jonx Kwasiline eun Hospital course: 01/01- NSTEMI, -s/p DRY KILN BURNER stetnt o RCA 01/02 - transferred to ICU -, -hypotension , philomena ( s/p right subclavian line ) - dopa gtt 01/03- on dopa , cefepime empirically 01/04-Jerking movement- keppra ordered - CTH WNL - cefepime STOPed- levofloxacin started A/P Cardiogenic shock - dopamine 6 - attempted to titrate - getting pauses >20 sec - up -ECHO 01/02 EF 65% RVSP 34 , severely dilated right ventricle Jerking movement noted 01/04 - keppra ordered - CTH done - No hemorrhage, edema, or acute finding. -- cefepime 01/03 empirically - WILL STOP SINCE IT CAN BE A CULPRIT ( rare side effect - levofloxacin started 01/04 NSTENI -s/p DRY KILN BURNER stetnt o RCA -Brilinta - off Beta-vince Encephalopathy acute - CTH 01/01 - aaox3 , but then ? postictal after jerking movements CKD ( Single kidney - hypotension ( and s/p contrast) - IMPROVING Elev transaminases - shock liver suspected - iIMPROVING Leukocytosis, with Nl WBC on admission - low grade fever 37 - re-work up - cefepime 01/03 empirically --> 01/04 : erking movement- keppra ordered - CTH WNL - cefepime STOPed- levofloxacin started - cx neg so far urne , blood 01/03 - ua + - CONT TO TX FOR uti swallow eval Lines : 01/02 - right subclavian central venous catheter. 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 Discussed with RN to reach out if any questions or concerns A total of 31 minutes of critical care time was devoted to this patient today, required to treat and/or prevent further deterioration of critical care condition ( as above) . Sepsis Event Evaluation Height, Weight, BMI Height: 5'7.00" Weight: 129lbs. 0.0oz. 58.747698cj; 19.60 BMI Method: Focused Exam Lactate Level 01/03/22 10:07: Lactic Acid Level 0.83 Exam Exam Patient acknowledged, consented, and participated in this virtual visit which was conducted using real time audio/video Vital Signs Date Time Temp Pulse Resp B/P (MAP) Pulse Ox O2 Delivery O2 Flow Rate FiO2 01/05/22 14:30 86 01/05/22 12:49 84 01/05/22 12:00 98 21 142/84 100 Room Air 01/05/22 12:00 99 Room Air 01/05/22 11:00 90 14 161/85 100 Room Air 01/05/22 10:00 90 14 137/76 100 Room Air 01/05/22 09:00 90 16 163/95 100 Room Air 01/05/22 08:01 36.4 01/05/22 08:00 99 Room Air 01/05/22 08:00 93 28 162/86 98 Room Air 01/05/22 07:00 75 19 106/48 98 Room Air 01/05/22 07:00 111 01/05/22 06:00 90 16 160/90 98 Room Air 01/05/22 05:45 93 18 166/88 97 01/05/22 05:30 90 20 167/86 100 01/05/22 05:15 92 19 154/86 99 01/05/22 05:00 69 19 169/77 97 Room Air 01/05/22 04:45 90 36 165/96 98 01/05/22 04:30 90 36 169/95 100 01/05/22 04:15 89 20 168/95 99 01/05/22 04:00 96 19 160/88 100 Room Air 01/05/22 04:00 99 Room Air 01/05/22 03:45 104 22 135/80 100 01/05/22 03:30 94 156/84 98 01/05/22 03:15 84 39 157/90 97 01/05/22 03:00 96 158/89 99 Room Air 01/05/22 02:45 79 38 144/68 98 01/05/22 02:30 117 18 135/81 100 01/05/22 02:26 96 156/92 01/05/22 02:15 93 17 156/92 98 01/05/22 02:00 96 15 160/94 98 Room Air 01/05/22 01:52 104 01/05/22 01:45 101 15 163/94 100 01/05/22 01:30 95 16 152/93 97 01/05/22 01:15 61 17 173/92 99 01/05/22 01:00 101 20 157/99 100 Room Air 01/05/22 00:45 101 12 166/94 100 01/05/22 00:30 105 21 165/106 100 01/05/22 00:15 99 24 178/96 100 01/05/22 00:00 78 28 173/84 98 Room Air 01/04/22 23:59 99 Room Air 01/04/22 23:45 83 15 176/109 99 01/04/22 23:30 98 18 180/97 100 01/04/22 23:15 96 16 180/92 99 01/04/22 23:00 75 23 178/97 99 Room Air 01/04/22 22:46 95 180/93 100 01/04/22 22:28 93 22 161/115 100 01/04/22 22:15 94 15 154/110 100 01/04/22 22:00 82 22 173/102 99 Room Air 01/04/22 21:45 93 19 100 01/04/22 21:30 80 20 134/93 99 01/04/22 21:15 95 23 151/94 98 01/04/22 21:00 90 22 169/98 98 Room Air 01/04/22 20:45 98 40 160/90 98 01/04/22 20:30 30 97 01/04/22 20:16 93 166/93 01/04/22 20:15 93 16 166/93 99 01/04/22 20:00 99 Room Air 01/04/22 20:00 96 16 160/92 99 Room Air 01/04/22 19:45 90 22 173/90 99 01/04/22 19:30 92 21 160/92 100 01/04/22 19:28 36.7 01/04/22 19:15 87 21 155/87 99 01/04/22 19:00 101 11 154/85 100 Room Air 01/04/22 19:00 101 01/04/22 18:30 86 18 140/86 99 01/04/22 18:15 90 12 160/85 96 01/04/22 18:00 94 25 141/89 98 Room Air 01/04/22 17:45 87 16 137/87 99 01/04/22 17:30 90 15 147/91 99 01/04/22 17:15 85 26 109/60 99 01/04/22 17:00 89 22 134/65 99 Room Air 01/04/22 16:45 84 11 122/57 97 01/04/22 16:30 84 17 103/77 98 01/04/22 16:17 36.0 01/04/22 16:15 103 15 115/74 98 01/04/22 16:00 36.9 01/04/22 16:00 93 12 125/73 98 Room Air 01/04/22 16:00 99 Room Air 01/04/22 15:45 87 17 118/51 97 01/04/22 15:30 87 20 111/68 98 01/04/22 15:15 93 19 108/54 99 01/04/22 15:00 90 16 102/55 97 Room Air 01/04/22 14:45 86 20 133/70 98 I & O 01/05/22 07:00 Intake Total 805 ml Output Total 5075 ml Balance -4270 ml Height & Weight Height: 5'7.00" Weight: 129lbs. 0.0oz. 58.268021wj; 19.60 BMI Method: General Appearance: No Apparent Distress, Chronically ill HEENT: Moist Mucous Membranes Neck: Full Range of Motion, Normal Inspection Respiratory: Chest Non Tender, Lungs Clear, Normal Breath Sounds, No Accessory Muscle Use, No Respiratory Distress Cardiovascular: Regular Rate, Rhythm, No Edema, No Gallop, No JVD, No Murmur, Normal Peripheral Pulses Capillary Refill: Less Than 3 Seconds Gastrointestinal: normal bowel sounds, soft; No distended, No guarding, No rebound; tenderness (Mild epigastric tenderness) Extremity: Normal Inspection, Normal Range of Motion, Non Tender, No Calf Tenderness, No Pedal Edema Neurologic/Psychiatric: Alert, Oriented x3, Normal Mood/Affect Skin: Normal Color, Warm/Dry Results Lab Laboratory Tests 01/04/22 02:40 01/05/22 03:45 Assessment/Plan Assessment/Plan ` DOMONIQUE CLAUDIO MD Jan 05, 2022 14:35
--- NOTE | 2022-01-06 00:35 | Progress Note ---
Standard Progress Note Progress Notes/Assess & Plan Date Seen by a Provider: Jan 06, 2022 Time Seen by a Provider: 00:35 Progress/Assessment & Plan called for severe RLQ pain, RN says pt almost jumps off bed, no WBC or fever, will get KUB AZUCENA TANG MD Jan 06, 2022 00:35
[2022-01-06 05:21] LABS: BASOPHILS % (AUTO) 0 % (0-10); EOSINOPHILS # (AUTO) 0.1 10^3/uL (0.0-0.3); EOSINOPHILS % (AUTO) 1 % (0-10); HEMATOCRIT 35 % (40-54); LYMPHOCYTES % (AUTO) 9 % (12-44); MEAN CORPUSCULAR HEMOGLOBIN 31 pg (25-34); MEAN CORPUSCULAR HGB CONC 34 g/dL (32-36); MEAN CORPUSCULAR VOLUME 92 fL (80-99); MEAN PLATELET VOLUME 10.3 fL (9.0-12.2); MONOCYTES # (AUTO) 1.1 10^3/uL (0.0-1.0); MONOCYTES % (AUTO) 10 % (0-12); NEUTROPHILS # (AUTO) 8.3 10^3/uL (1.8-7.8); NEUTROPHILS % (AUTO) 78 % (42-75); PLATELET COUNT 181 10^3/uL (130-400); WHITE BLOOD COUNT 10.5 10^3/uL (4.3-11.0)
[2022-01-06 05:37] LABS: ALBUMIN 2.8 GM/DL (3.2-4.5); POTASSIUM 3.9 MMOL/L (3.6-5.0)
[2022-01-06 05:39] LABS: CALCIUM 8.4 MG/DL (8.5-10.1)
[2022-01-06 05:40] LABS: TOTAL PROTEIN 5.7 GM/DL (6.4-8.2)
[2022-01-06 05:42] LABS: BILIRUBIN,TOTAL 0.8 MG/DL (0.1-1.0)
[2022-01-06 05:43] LABS: CREATININE SERUM 1.5 MG/DL (0.60-1.30)
[2022-01-06] MEDS: MAGNESIUM 1 GM/100 ML IVPB 100 ML IV SCH (05:59)
[2022-01-06] MEDS: KCL 20 MEQ TAB (K-DUR) PO SCH (05:59)
[2022-01-06] MEDS: POTASSIUM CL 10MEQ/50ML IVPB 50 ML IV SCH (05:59)
[2022-01-06] MEDS: ZIPRASIDONE 20 MG INJ (GEODON) VIAL IM PRN (06:45)
--- NOTE | 2022-01-06 06:55 | Diagnostic Imaging Report ---
INDICATION: Right lower quadrant abdominal pain. Supine image of the abdomen reveals diffuse gaseous distention of mildly dilated small bowel loops. There is mild colonic stool with stool and gas reaching the level of the rectum. Surgical clip is seen in the region of the gallbladder fossa. Prominent interstitial markings are noted in the lung bases. There is mild lumbar spondylosis. IMPRESSION: Nonspecific gaseous distention of small bowel may reflect ileus. Otherwise, no definite acute abnormality is seen. Dictated by: Dictated on workstation # [id number]
[2022-01-06] MEDS: TICAGRELOR 90 MG TABLET (BRILINTA) PO SCH ×2 (08:58→20:09)
[2022-01-06] MEDS: PANTOPRAZOLE 40 MG (PROTONIX) VIAL IV SCH (08:58)
[2022-01-06] MEDS: MIDODRINE 10 MG (PROAMATINE) TAB PO SCH ×3 (08:58→18:36)
[2022-01-06] MEDS: DOCUSATE SODIUM 100 MG (COLACE) CAP PO SCH ×2 (08:58→20:08)
[2022-01-06] MEDS: ENOXAPARIN INJECTION 30 MG/0.3 ML SYR SC SCH (09:00)
--- NOTE | 2022-01-06 09:39 | Tele-ICU Progress Note ---
Subjective Date Seen by a Provider: Jan 06, 2022 Time Seen by a Provider: 08:10 Subjective/Events-last exam This virtual visit was conducted using real time audio/video. Thank you for asking us to see this patient for critical illness w NSTEMI s/p RCA stent, cardiogenic shock, encephalopathy, possible seizure. PE: resting comfortablyVSS. O2 sat 97% on RA. HEENT: No obvious masses, adenopathy or JVD. Chest: clear to auscultation. CV: RRR S1 S2 No murmur or added sounds. Abd: Non-tender. Bowel sounds Y. : Unremarkable. Quinteros Y. OPERATIONS CONSULTANT/psychiatric: Grossly intact. No obvious focal findings. Extremities: No edema. Capillary refill < 3 seconds. Skin: unremarkable. Results: Elevated BUN 29, Creat 1.5. Decreased Hb 12.0. Available chart/ vitals / labs / images reviewed. Video assessment done using teleICU camera, rest of exam as per RN. A/P: Critical Care: critically ill patient. Cont. Alb., Precedex, Dop., keppra, PPI, Levaquin, Crestor, Brilinta, Midodrine, ASA, SSI, Lovenox. Discussed with RN Rita. Asked RN to reach out to eICU if any questions or concerns later. Time spent with patient/coordination of care with other health professionals (mins) 30: Sepsis Event Evaluation Height, Weight, BMI Height: 5'7.00" Weight: 129lbs. 0.0oz. 58.224851fe; 19.60 BMI Method: Focused Exam Lactate Level 01/03/22 10:07: Lactic Acid Level 0.83 Exam Exam Patient acknowledged, consented, and participated in this virtual visit which was conducted using real time audio/video Vital Signs Date Time Temp Pulse Resp B/P (MAP) Pulse Ox O2 Delivery O2 Flow Rate FiO2 01/06/22 08:00 36.0 01/06/22 08:00 100 Room Air 01/06/22 07:00 85 01/06/22 06:00 77 21 119/67 100 Room Air 01/06/22 05:00 84 15 124/86 100 Room Air 01/06/22 04:00 99 Room Air 01/06/22 04:00 37.0 76 13 114/62 100 Room Air 01/06/22 03:00 76 15 106/62 99 Room Air 01/06/22 02:00 82 13 105/58 100 Room Air 01/06/22 01:00 75 01/06/22 01:00 75 18 110/56 99 Room Air 01/06/22 00:00 99 Room Air 01/06/22 00:00 70 20 111/63 98 Room Air 01/06/22 00:00 36.8 01/05/22 23:00 73 21 115/60 98 Room Air 01/05/22 22:00 77 21 144/82 97 Room Air 01/05/22 21:00 81 20 119/64 98 Room Air 01/05/22 20:00 99 Room Air 01/05/22 20:00 84 18 109/56 99 Room Air 01/05/22 19:38 37.8 01/05/22 19:00 78 14 134/37 98 Room Air 01/05/22 19:00 78 01/05/22 18:00 71 18 121/80 100 Room Air 01/05/22 17:00 71 30 102/62 98 Room Air 01/05/22 16:00 90 20 149/90 100 Room Air 01/05/22 16:00 99 Room Air 01/05/22 15:40 37.3 01/05/22 15:00 90 19 145/78 100 Room Air 01/05/22 14:30 86 01/05/22 14:00 85 26 99/54 100 Room Air 01/05/22 13:00 86 12 143/86 98 Room Air 01/05/22 12:49 84 01/05/22 12:00 98 21 142/84 100 Room Air 01/05/22 12:00 99 Room Air 01/05/22 11:00 90 14 161/85 100 Room Air 01/05/22 10:00 90 14 137/76 100 Room Air I & O 01/06/22 07:00 Intake Total 360 ml Output Total 1625 ml Balance -1265 ml Height & Weight Height: 5'7.00" Weight: 129lbs. 0.0oz. 58.116327qt; 19.60 BMI Method: General Appearance: No Apparent Distress, WD/WN, Chronically ill, Thin HEENT: Moist Mucous Membranes Neck: Full Range of Motion, Normal Inspection Respiratory: Lungs Clear, Normal Breath Sounds Cardiovascular: Regular Rate, Rhythm Capillary Refill: Less Than 3 Seconds Gastrointestinal: normal bowel sounds, soft; No distended, No guarding, No rebound; tenderness (Mild epigastric tenderness) Extremity: Normal Inspection, Normal Range of Motion, Non Tender, No Calf Tenderness, No Pedal Edema Neurologic/Psychiatric: Alert, Oriented x3, Depressed Affect, Disoriented Skin: Normal Color, Warm/Dry Results Lab Laboratory Tests 01/05/22 03:45 01/06/22 05:00 Assessment/Plan Assessment/Plan See free text. Critical Care: Critically Ill Patient AOLNZO GREENBERG MD Jan 06, 2022 09:38
--- NOTE | 2022-01-06 09:49 | Occupational Ther Daily Note ---
OT Current Status-Daily Note Subjective Pt alert, lying in bed. Son and present in room. Pt oriented x2. Mental Status/Objective Patient Orientation: Person, Time (day of the week) Attachments: Quinteros Catheter, IV, Telemetry ADL-Treatment Pt declines any oral care or washing face stating that he will do it later. Therapy Code Descriptions/Definitions Functional [place] Measure: 0=Not Assessed/NA 4=Minimal Assistance 1=Total Assistance 5=Supervision or Setup 2=Maximal Assistance 6=Modified [place] 3=Moderate Assistance 7=Complete IndependenceSCALE: Activities may be completed with or without assistive devices. 8-Zlyijeuqat-nekgylc completes the activity by him/herself with no assistance from a helper. 5-Set-up or Clean-up Assistance-helper sets up or cleans up; patient completes activity. [place] assists only prior to or following the activity. 4-Supervision or Touching Assistance-helper provides verbal cues and/or touching/steadying and/or contact guard assistance as patient completes activity. Assistance may be provided throughout the activity or intermittently. 3-Partial/Moderate Assistance-helper does LESS THAN HALF the effort. [place] lifts, holds or supports trunk or limbs, but provides less than half the effort. 2-Substantial/Maximal Assistance-helper does MORE THAN HALF the effort. [place] lifts or holds trunk or limbs and provides more than half the effort. 8-Cvgfccvxu-qmpxtr does ALL the effort. Patient does none of the effort to complete the activity. Or, the assistance of 2 or more helpers is required for the patient to complete the activity. If activity was not attempted, code reason: 7-Patient Refused. 9-Not Applicable-not attempted and the patient did not perform the activity before the current illness, exacerbation or injury. 10-Not Attempted due to Environmental Limitations-(lack of equipment, weather restraints, etc.). 88-Not Attempted due to Medical Conditions or Safety Concerns. Other Treatment With feet elevated and bed flat, pt able to reach with R UE to headboard and assist to bend knees was able to pull self up in bed. Pt c/o pain with L shldr. Pt agrees to completed B UE exercises against gravity. Shldr flex, shldr horizontal abd/add, front punches. Pt able to complete 1 set 10 reps of shldr exercises then only 1 set 7 reps of front punches before pt stated he was finished and closed eyes. After session, pt lying in bed with call light/phone in reach. All needs met in room. Safety measures in place. and son in room. OT Animal Assistant Goals Animal Assistant Goals Time Frame: Jan 26, 2022 Eating (QC): 5 Oral Hygiene (QC): 5 Toileting Hygiene (QC): 4 Shower/Bathe Self (QC): 4 Upper Body Dressing (QC): 4 Lower Body Dressing (QC): 4 On/Off Footwear (QC): 4 1=Demonstrate adherence to instructed precautions during ADL tasks. 2=Patient will verbalize/demonstrate understanding of assistive mora jojo/modifications for ADL. 3=Patient will improve strength/tolerance for activity to enable patient to perform ADL's. OT Education/Plan Problem List/Assessment Assessment: Decreased Activ Tolerance, Decreased Safety Aware, Decreased UE Strength, Impaired Cognition, Impaired Self-Care Skills Discharge Recommendations Plan/Recommendations: Continue POC Treatment Plan/Plan of Care Patient would benefit from OT for education, treatment and training to promote independence in ADL's, mobility, safety and/or upper extremity function for AD L's. Plan of Care: ADL Retraining, Caregiver Training, Cognitive Retraining, Functional Mobility, Group Exercise/Act as Ind, UE Funct Exercise/Act Treatment Duration: Jan 26, 2022 Frequency: 3 times per week (3-5x/week) Estimated Hrs Per Day: .25 hour per day Rehab Potential: Guarded Time/GCodes Start Time: 09:30 Stop Time: 09:45 Total Time Billed (hr/min): 15 Billed Treatment Time 1 visit-EX 1 (15 min) CHELSEY RAGLAND Jan 06, 2022 09:49
[2022-01-06] MEDS ORDERED: ACETAMINOPHEN 325 MG TABLET PO PRN (10:00)
[2022-01-06] MEDS: ASPIRIN 81 MG CHEW (CHILDREN'S ASA) PO SCH (10:16)
--- NOTE | 2022-01-06 10:47 | Physical Therapy Daily Note ---
PT Daily Note-Current Subjective Pts RN requested a hold on pts PT today. Therapist will check pts status tomorrow. Transfers SCALE: Activities may be completed with or without assistive devices. 3-Ssvrwjjpkj-tlohmkn completes the activity by him/herself with no assistance from a helper. 5-Set-up or Clean-up Assistance-helper sets up or cleans up; patient completes activity. [place] assists only prior to or following the activity. 4-Supervision or Touching Assistance-helper provides verbal cues and/or touching/steadying and/or contact guard assistance as patient completes activity. Assistance may be provided throughout the activity or intermittently. 3-Partial/Moderate Assistance-helper does LESS THAN HALF the effort. [place] lifts, holds or supports trunk or limbs, but provides less than half the effort. 2-Substantial/Maximal Assistance-helper does MORE THAN HALF the effort. [place] lifts or holds trunk or limbs and provides more than half the effort. 8-Cgdwatxld-icrdeh does ALL the effort. Patient does none of the effort to complete the activity. Or, the assistance of 2 or more helpers is required for the patient to complete the activity. If activity was not attempted, code reason: 7-Patient Refused. 9-Not Applicable-not attempted and the patient did not perform the activity before the current illness, exacerbation or injury. 10-Not Attempted due to Environmental Limitations-(lack of equipment, weather restraints, etc.). 88-Not Attempted due to Medical Conditions or Safety Concerns. Weight Bearing Right Lower Extremity: Right Weight Bearing/Tolerated Left Lower Extremity: Left Weight Bearing/Tolerated Assessment Current Status: Hold Per Dr/Nursing (Pts RN requested a hold on pts PT today. 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
--- NOTE | 2022-01-06 11:04 | Physical Therapy Progress Note ---
Therapy Progress Note Pts RN requested a hold on pts PT today, due to pts status. Therapist will check pts status tomorrow. 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
--- NOTE | 2022-01-06 12:24 | Progress Note - Hospitalist ---
JENNIE NÚÑEZ 01/06/22 1223: Subjective HPI/CC On Admission Date Seen by Provider: Jan 06, 2022 Time Seen by Provider: 10:15 Chief complaint: NSTEMI status post stent in RCA complicated now with confusion, acute kidney injury, oliguria, severe bradycardia History of present illness: This is an 86-year-old white male who presented to the ER with chest pain 1 day after working in his yard and having midepigastric chest pain and found to have elevated troponin of 16 underwent cardiac catheterization by Dr. Concepcion with stent placement in RCA. 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 He stabilized but overnight became agitated requiring antipsychotics due to agitated state and transferred to ICU with continued issues with bradycardia and decreased urinary output and elevated lactic acid. Patient is currently stabilized status post central line right subclavian by Dr. SALMON and I updated the family in depth regarding lab results and prognosis in this critically ill patient. Urinary output will be managed with aggressive IV fluids. Repeat creatinine was 2.1. IV fluid boluses ordered. Systolic function was normal. If continues to decline they are willing to move to higher level for nephrology and possible dialysis and other life-sustaining treatment in the ICU. Patient appears to be very frail and thin and have poor reserve. Subjective/Events-last exam PT was laying in bed this morning and was not in acute distress. His reported that he passed lots of gas and some stool yesterday. He has been able to eat some soft foods this morning. He reports having some epigastric pain. Review of Systems General: No Chills; Other (no fever) HEENT: Head Aches; No Visual Changes Pulmonary: Cough; No Pleuritic Chest Pain Cardiovascular: No: Chest Pain, Palpitations Gastrointestinal: No: Nausea, Vomiting Genitourinary: No Dysuria, No Hematuria Musculoskeletal: No: leg pain, foot pain Neurological: No: Change in speech, Confusion Objective Exam Vital Signs Vital Signs Date Time Temp Pulse Resp B/P (MAP) Pulse Ox O2 Delivery O2 Flow Rate FiO2 01/06/22 14:00 77 19 125/62 98 Room Air 01/06/22 12:00 36.0 01/03/22 18:00 6.00 Capillary Refill : Less Than 3 Seconds General Appearance: No Apparent Distress, Chronically ill HEENT: PERRL/EOMI, Moist Mucous Membranes Neck: Full Range of Motion, Normal Inspection, Non Tender, Supple Respiratory: Chest Non Tender, Lungs Clear, Normal Breath Sounds, No Accessory Muscle Use, No Respiratory Distress Cardiovascular: Regular Rate, Rhythm, No Edema, No Gallop, No JVD, No Murmur, Normal Peripheral Pulses Gastrointestinal: Normal Bowel Sounds, No Organomegaly, No Pulsatile Mass, Soft, Tenderness (epigastric ) Extremity: Normal Inspection, Normal Range of Motion, Non Tender, No Calf Tenderness, No Pedal Edema Neurologic/Psychiatric: Alert, Oriented x3, No Motor/Sensory Deficits, Normal Mood/Affect Skin: Normal Color, Warm/Dry Lymphatic: No Adenopathy Results/Procedures Lab Laboratory Tests 01/06/22 05:00 Patient resulted labs reviewed. Assessment/Plan Assessment and Plan Assess & Plan/Chief Complaint Assessment: NSTEMI Seizure like activity Aystolic event Presumed UTI with cultures showing no growth empirically treated with antibiotics Cardiogenic shock Status post stent to RCA Leukocytosis Severe bradycardia Acute delirium Poor reserve Acute kidney injury Lactic acidosis due to volume depletion no source of sepsis Solo kidney HTN HLP Obstructive sleep apnea Chronic kidney disease Hypothyroidism Plan: NSTEMI Seizure like activity asystolic event Presumed UTI with cultures showing no growth empirically treated with antibiotics Cardiogenic shock Status post stent to RCA Leukocytosis Severe bradycardia Acute delirium Poor reserve Acute kidney injury Solo kidney Lactic acidosis due to volume depletion no source of sepsis Continue supportive care. Continue on Levaquin. Continue on Keppra 500mg. Continue on dopamine and Midodrine 5mg TID for blood pressure control. Appreciate cardiology who are determining when he can DC dopamine. PT likely will need a pace maker. Once he is off the dopamine we will review what the next steps of his care will be. Continue speech therapy for dysphagia. HTN HLP Obstructive sleep apnea Chronic kidney disease Hypothyroidism No acute management needed at this time RADHA KRAUS DO 01/07/22 0511: Subjective Subjective/Events-last exam Patient doing pretty well Still on dopamine drip updates with a lot of details Son at bed side has no questions Very frail status Objective Exam General Appearance: No Apparent Distress, WD/WN, Chronically ill, Thin Respiratory: Lungs Clear, Normal Breath Sounds Cardiovascular: Regular Rate, Rhythm Neurologic/Psychiatric: Alert, Oriented x3 Assessment/Plan Assessment and Plan Assess & Plan/Chief Complaint Supportive care Pacemaker? Supervisory-Addendum Brief Verification & Attestation Participated in pt care: history, MDM, physical Personally performed: exam, history, MDM, supervision of care Care discussed with: Medical Student Procedures: n/a Results interpretation: Verified all documentation Verification and Attestation of Medical Student E/M Service A medical student performed and documented this service in my presence. I reviewed and verified all information documented by the medical student and made modifications to such information, when appropriate. I personally performed the physical exam and medical decision making. Radha Kraus, Jan 07, 2022,05:10 JENNIE NÚÑEZ Jan 06, 2022 12:23 RADHA KRAUS DO Jan 07, 2022 05:11
--- NOTE | 2022-01-06 12:30 | Cardiology Progress Note ---
Progress Note-Cardiology Events since last exam Date Seen by Provider: Jan 06, 2022 Time Seen by Provider: 12:28 Events since last exam I am following him due to NSTEMI with shock and bradycardia. He was laying in bed in the ICU. He remains on dopamine infusion. He denies chest pain, dyspnea, palpitations, syncope or ankle edema. Certain portions of this document may have been dictated utilizing voice recogni tion technology. Inherent to this technology, typographical and grammatical errors may exist. As much as I am diligent to identify and correct these mistakes, some errors may remain in the document. Vitals Last set of Vitals Signs Vital Signs 01/03/22 01/06/22 18:00 16:15 Pulse 75 Resp 23 B/P (MAP) 120/75 Pulse Ox 99 O2 Delivery Room Air O2 Flow Rate 6.00 Labs Labs Laboratory Tests 01/06/22 05:00 Exam Vital Signs Vital Signs Date Time Temp Pulse Resp B/P (MAP) Pulse Ox O2 Delivery O2 Flow Rate FiO2 01/06/22 16:15 75 23 120/75 99 Room Air 01/06/22 16:00 36.8 01/03/22 18:00 6.00 Physical Exam General: Alert. No acute distress. Eye: No xanthelasma. HENT: Normocephalic. Neck: Jugular venous pressure does not appear elevated. Respiratory: Lungs are clear to auscultation. Respirations are non-labored. B reath sounds are equal. Symmetrical chest wall expansion. Cardiovascular: Normal rate. Regular rhythm. No murmur. No gallop. No edema. Gastrointestinal: Soft. Normal bowel sounds. Skin: Warm. Dry. Neurologic: Alert and oriented to person, place, time. Cranial nerves 3-11 grossly intact. Psychiatric: Cooperative. Appropriate mood & affect. Labs Laboratory Tests Test 01/05/22 18:12 01/05/22 23:53 01/06/22 05:00 01/06/22 12:08 Range/Units Glucometer 101 81 131 H 70-110 MG/DL White Blood Count 10.5 4.3-11.0 10^3/uL Red Blood Count 3.84 L 4.30-5.52 10^6/uL Hemoglobin 12.0 L 13.3-17.7 g/dL Hematocrit 35 L 40-54 % Mean Corpuscular Volume 92 80-99 fL Mean Corpuscular Hemoglobin 31 25-34 pg Mean Corpuscular Hemoglobin Concent 34 32-36 g/dL Red Cell Distribution Width 12.8 10.0-14.5 % Platelet Count 181 130-400 10^3/uL Mean Platelet Volume 10.3 9.0-12.2 fL Immature Granulocyte % (Auto) 1 % Neutrophils (%) (Auto) 78 H 42-75 % Lymphocytes (%) (Auto) 9 L 12-44 % Monocytes (%) (Auto) 10 0-12 % Eosinophils (%) (Auto) 1 0-10 % Basophils (%) (Auto) 0 0-10 % Neutrophils # (Auto) 8.3 H 1.8-7.8 10^3/uL Lymphocytes # (Auto) 1.0 1.0-4.0 10^3/uL Monocytes # (Auto) 1.1 H 0.0-1.0 10^3/uL Eosinophils # (Auto) 0.1 0.0-0.3 10^3/uL Basophils # (Auto) 0.0 0.0-0.1 10^3/uL Immature Granulocyte # (Auto) 0.1 0.0-0.1 10^3/uL Sodium Level 141 135-145 MMOL/L Potassium Level 3.9 3.6-5.0 MMOL/L Chloride Level 108 H 98-107 MMOL/L Carbon Dioxide Level 19 L 21-32 MMOL/L Anion Gap 14 5-14 MMOL/L Blood Urea Nitrogen 29 H 7-18 MG/DL Creatinine 1.50 H 0.60-1.30 MG/DL Estimat Glomerular Filtration Rate 45 BUN/Creatinine Ratio 19 Glucose Level 91 70-105 MG/DL Calcium Level 8.4 L 8.5-10.1 MG/DL Corrected Calcium 9.4 8.5-10.1 MG/DL Magnesium Level 2.0 1.6-2.4 MG/DL Total Bilirubin 0.8 0.1-1.0 MG/DL Aspartate Amino Transf (AST/SGOT) 35 H 5-34 U/L Alanine Aminotransferase (ALT/SGPT) 57 H 0-55 U/L Alkaline Phosphatase 85 40-136 U/L Total Protein 5.7 L 6.4-8.2 GM/DL Albumin 2.8 L 3.2-4.5 GM/DL Diagnosis/Problems Diagnosis/Problems (1) Cardiogenic shock Assessment & Plan: I suspect this is due to significant right ventricular infarction. He received a good amount of intravenous fluid which is the treatment of right ventricular infarct. His blood pressures had been improving but he is still requiring dopamine. I stopped intravenous fluids on 01/04. We will continue to attempt to wean dopamine. All antihypertensive medication is on hold. I started him on midodrine on 01/05 to see if we can wean off the dopamine. (2) Sinus bradycardia Assessment & Plan: He continues to have significant bradycardia and some pauses although this is improving. He likely had involvement of the SA jean pierre artery and AV jean pierre arteries during his acute myocardial infarction. Typically, these areas will recover over time and now seems to be improving. (3) Non-ST elevation myocardial infarction (NSTEMI), initial care episode Assessment & Plan: He is now status post drug-eluting stent placement to the proximal right coronary artery. He probably had a significant right ventricular infarct which is causing the shock outlined above. We will continue aspirin, Brilinta and statin medication. Beta-vince was discontinued due to bradycardia and hypotension. 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 I will probably wait for him to recover from this event and consider intervention in 4-6 weeks. (4) Right heart failure Assessment & Plan: He has severe right ventricular systolic dysfunction. This will usually resolve spontaneously over time. Fortunately, he is not having any signs of significant volume overload from the intravenous fluid he received. (5) Acute kidney injury superimposed on chronic kidney disease Assessment & Plan: He most likely had some degree of contrast-induced nephrotoxicity as well as ATN from the ongoing shock. His renal function has stabilized. 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 I will hold off on any additional interventional procedures until he recovers for 4 to 6 weeks. (6) Encephalopathy acute Assessment & Plan: Etiology unclear. This occurred in the setting of an acute myocardial infarction now with shock. There were no acute changes on his head CT. His mental status has improved although after the seizure-like activity on 01/04, he has again been intermittently confused. 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 This has resulted in chronic kidney disease. We will continue to monitor his renal function closely. (8) Stage 3 chronic kidney disease Assessment & Plan: As above. (9) Acquired hypothyroidism Assessment & Plan: His TSH level during this admission was normal. Continue thyroid medication. AUSTEN GOMEZ JR, MD Jan 06, 2022 12:30
[2022-01-06] MEDS: LEVOFLOXACIN 750 MG/D5W 150 ML PRE-MIX IV SCH (14:25)
[2022-01-06] MEDS: ROSUVASTATIN 20 MG (CRESTOR) TABLET PO SCH (20:09)
[2022-01-07 03:59] VITALS: BP 122/62
[2022-01-07] MEDS: DOPamine DRIP 250 ML IV SCH (03:59)
[2022-01-07 04:29] LABS: BASOPHILS % (AUTO) 0 % (0-10); EOSINOPHILS # (AUTO) 0.1 10^3/uL (0.0-0.3); EOSINOPHILS % (AUTO) 1 % (0-10); HEMATOCRIT 37 % (40-54); HEMOGLOBIN 12.3 g/dL (13.3-17.7); LYMPHOCYTES # (AUTO) 1.4 10^3/uL (1.0-4.0); LYMPHOCYTES % (AUTO) 11 % (12-44); MEAN CORPUSCULAR HEMOGLOBIN 31 pg (25-34); MEAN CORPUSCULAR HGB CONC 33 g/dL (32-36); MEAN CORPUSCULAR VOLUME 94 fL (80-99); MONOCYTES # (AUTO) 1.1 10^3/uL (0.0-1.0); MONOCYTES % (AUTO) 9 % (0-12); NEUTROPHILS # (AUTO) 9.4 10^3/uL (1.8-7.8); NEUTROPHILS % (AUTO) 78 % (42-75); PLATELET COUNT 203 10^3/uL (130-400); WHITE BLOOD COUNT 12.1 10^3/uL (4.3-11.0)
[2022-01-07 04:30] LABS: ALBUMIN 3.1 GM/DL (3.2-4.5)
[2022-01-07 04:32] LABS: CALCIUM 8.6 MG/DL (8.5-10.1)
[2022-01-07 04:33] LABS: TOTAL PROTEIN 6.2 GM/DL (6.4-8.2)
[2022-01-07 04:35] LABS: BILIRUBIN,TOTAL 0.9 MG/DL (0.1-1.0)
[2022-01-07 04:37] LABS: CREATININE SERUM 1.49 MG/DL (0.60-1.30)
[2022-01-07 04:39] LABS: MAGNESIUM 2.1 MG/DL (1.6-2.4)
[2022-01-07] MEDS: KCL 20 MEQ TAB (K-DUR) PO SCH (05:45)
[2022-01-07] MEDS: POTASSIUM CL 10MEQ/50ML IVPB 50 ML IV SCH (05:45)
[2022-01-07] MEDS: MAGNESIUM 1 GM/100 ML IVPB 100 ML IV SCH (05:46)
[2022-01-07] MEDS: TICAGRELOR 90 MG TABLET (BRILINTA) PO SCH (07:57)
[2022-01-07] MEDS: PANTOPRAZOLE 40 MG (PROTONIX) VIAL IV SCH (07:57)
[2022-01-07] MEDS: ASPIRIN 81 MG CHEW (CHILDREN'S ASA) PO SCH (07:57)
[2022-01-07] MEDS: MIDODRINE 10 MG (PROAMATINE) TAB PO SCH ×2 (07:57→12:56)
[2022-01-07] MEDS: DOCUSATE SODIUM 100 MG (COLACE) CAP PO SCH (07:57)
--- NOTE | 2022-01-07 08:41 | Cardiology Progress Note ---
Progress Note-Cardiology Events since last exam Date Seen by Provider: Jan 07, 2022 Time Seen by Provider: 08:39 Events since last exam I am following him due to non-ST elevation myocardial infarction that was due to acute thrombotic occlusion of the proximal right coronary artery. This was treated with 1 drug-eluting stent. His post procedure course has been complicated by cardiogenic shock most likely due to right ventricular infarction with right heart failure. On 01/06 his dopamine infusion was discontinued. Overnight he had some heart rates in the 40s but was asymptomatic. This is an improvement. He denies chest discomfort, dyspnea at rest, palpitations, syncope, or ankle edema. Certain portions of this document may have been dictated utilizing voice recognition technology. Inherent to this technology, typographical and grammatical errors may exist. As much as I am diligent to identify and correct these mistakes, some errors may remain in the document. Vitals Last set of Vitals Signs Vital Signs 01/03/22 01/07/22 01/07/22 18:00 08:00 09:00 Temp 36.5 Pulse 98 Resp 35 B/P (MAP) 138/77 Pulse Ox 100 O2 Delivery Room Air O2 Flow Rate 6.00 Labs Labs Laboratory Tests 01/07/22 04:10 Exam Vital Signs Vital Signs Date Time Temp Pulse Resp B/P (MAP) Pulse Ox O2 Delivery O2 Flow Rate FiO2 01/07/22 09:00 98 35 138/77 100 Room Air 01/07/22 08:00 36.5 01/03/22 18:00 6.00 Physical Exam General: Alert. No acute distress. Eye: No xanthelasma. HENT: Normocephalic. Neck: Jugular venous pressure does not appear elevated. Respiratory: Lungs are clear to auscultation. Respirations are non-labored. Breath sounds are equal. Symmetrical chest wall expansion. Cardiovascular: Normal rate. Regular rhythm. No murmur. No gallop. No edema. Gastrointestinal: Soft. Normal bowel sounds. Skin: Warm. Dry. Neurologic: Alert and oriented to person and time but not place. Cranial nerves 3-11 grossly intact. Psychiatric: Cooperative. Appropriate mood & affect. Labs Laboratory Tests Test 01/06/22 12:08 01/06/22 18:12 01/06/22 23:59 01/07/22 04:10 Range/Units Glucometer 131 H 95 90 70-110 MG/DL White Blood Count 12.1 H 4.3-11.0 10^3/uL Red Blood Count 3.95 L 4.30-5.52 10^6/uL Hemoglobin 12.3 L 13.3-17.7 g/dL Hematocrit 37 L 40-54 % Mean Corpuscular Volume 94 80-99 fL Mean Corpuscular Hemoglobin 31 25-34 pg Mean Corpuscular Hemoglobin Concent 33 32-36 g/dL Red Cell Distribution Width 12.8 10.0-14.5 % Platelet Count 203 130-400 10^3/uL Mean Platelet Volume 10.0 9.0-12.2 fL Immature Granulocyte % (Auto) 1 % Neutrophils (%) (Auto) 78 H 42-75 % Lymphocytes (%) (Auto) 11 L 12-44 % Monocytes (%) (Auto) 9 0-12 % Eosinophils (%) (Auto) 1 0-10 % Basophils (%) (Auto) 0 0-10 % Neutrophils # (Auto) 9.4 H 1.8-7.8 10^3/uL Lymphocytes # (Auto) 1.4 1.0-4.0 10^3/uL Monocytes # (Auto) 1.1 H 0.0-1.0 10^3/uL Eosinophils # (Auto) 0.1 0.0-0.3 10^3/uL Basophils # (Auto) 0.0 0.0-0.1 10^3/uL Immature Granulocyte # (Auto) 0.1 0.0-0.1 10^3/uL Sodium Level 142 135-145 MMOL/L Potassium Level 4.0 3.6-5.0 MMOL/L Chloride Level 108 H 98-107 MMOL/L Carbon Dioxide Level 19 L 21-32 MMOL/L Anion Gap 15 H 5-14 MMOL/L Blood Urea Nitrogen 25 H 7-18 MG/DL Creatinine 1.49 H 0.60-1.30 MG/DL Estimat Glomerular Filtration Rate 45 BUN/Creatinine Ratio 17 Glucose Level 89 70-105 MG/DL Calcium Level 8.6 8.5-10.1 MG/DL Corrected Calcium 9.3 8.5-10.1 MG/DL Magnesium Level 2.1 1.6-2.4 MG/DL Total Bilirubin 0.9 0.1-1.0 MG/DL Aspartate Amino Transf (AST/SGOT) 33 5-34 U/L Alanine Aminotransferase (ALT/SGPT) 50 0-55 U/L Alkaline Phosphatase 87 40-136 U/L Total Protein 6.2 L 6.4-8.2 GM/DL Albumin 3.1 L 3.2-4.5 GM/DL Test 01/07/22 05:34 Range/Units Glucometer 97 70-110 MG/DL Diagnosis/Problems Diagnosis/Problems (1) Cardiogenic shock Assessment & Plan: I suspect this is due to significant right ventricular infarction. He received a good amount of intravenous fluid which is the treatment of right ventricular infarct. I stopped intravenous fluids on 01/04. We will continue to attempt to wean dopamine. All antihypertensive medication is on hold. I started him on midodrine on 01/05 and increase the dose on 01/06. He has now been weaned off dopamine. Over time, I would like to wean down the midodrine if possible. (2) Sinus bradycardia Assessment & Plan: He continues to have significant bradycardia and some pauses although this is improving. He likely had involvement of the SA jean pierre artery and AV jean pierre arteries during his acute myocardial infarction. Typically, these areas will recover over time and now seems to be improving. I do not see any urgent need for temporary or permanent pacemaker at this time. I recommend avoiding beta-vince for the time being. (3) Non-ST elevation myocardial infarction (NSTEMI), initial care episode Assessment & Plan: He is now status post drug-eluting stent placement to the proximal right coronary artery. He probably had a significant right ventricular infarct which caused the shock outlined above. We will continue aspirin, Brilinta and statin medication. Beta-vince was discontinued due to bradycardia and hypotension. 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 I will probably wait for him to recover from this event and consider intervention in 4-6 weeks. From a cardiac standpoint, he can be transferred to the cardiac stepdown unit with telemetry. May be ready for discharge home or possibly to inpatient rehab over the weekend. I have suggested inpatient rehab but the patient has expressed a desire to go home. Physical therapy is seeing the patient. (4) Right heart failure Assessment & Plan: He has severe right ventricular systolic dysfunction. This will usually resolve spontaneously over time. Fortunately, he is not having any signs of significant volume overload from the intravenous fluid he received. (5) Acute kidney injury superimposed on chronic kidney disease Assessment & Plan: He most likely had some degree of contrast-induced nephrotoxicity as well as ATN from the ongoing shock. His renal function has stabilized. 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 I will hold off on any additional interventional procedures until he recovers for 4 to 6 weeks. (6) Encephalopathy acute Assessment & Plan: Etiology unclear. This occurred in the setting of an acute myocardial infarction complicated by shock. There were no acute changes on his head CT. His mental status has improved although after the seizure-like activity on 01/04, he has again been intermittently confused. 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 This has resulted in chronic kidney disease. We will continue to monitor his renal function closely. (8) Stage 3 chronic kidney disease Assessment & Plan: As above. (9) Acquired hypothyroidism Assessment & Plan: His TSH level during this admission was normal. Continue thyroid medication. AUSTEN GOMEZ JR, MD Jan 07, 2022 08:41
--- NOTE | 2022-01-07 09:31 | Physical Therapy Daily Note ---
PT Daily Note-Current Subjective Upon arrival, pt was laying in bed. Pts RN and family were present. Pt agrees to PT. Pt demonstrates some confusion. Mental Status Patient Orientation: Confused, Situation Attachments: Quinteros Catheter Transfers SCALE: Activities may be completed with or without assistive devices. 6-Vbgafvhjpo-cfphvdf completes the activity by him/herself with no assistance from a helper. 5-Set-up or Clean-up Assistance-helper sets up or cleans up; patient completes activity. [place] assists only prior to or following the activity. 4-Supervision or Touching Assistance-helper provides verbal cues and/or touching/steadying and/or contact guard assistance as patient completes activity. Assistance may be provided throughout the activity or intermittently. 3-Partial/Moderate Assistance-helper does LESS THAN HALF the effort. [place] lifts, holds or supports trunk or limbs, but provides less than half the effort. 2-Substantial/Maximal Assistance-helper does MORE THAN HALF the effort. [place] lifts or holds trunk or limbs and provides more than half the effort. 1-Ovyebgghj-enrcdn does ALL the effort. Patient does none of the effort to complete the activity. Or, the assistance of 2 or more helpers is required for the patient to complete the activity. If activity was not attempted, code reason: 7-Patient Refused. 9-Not Applicable-not attempted and the patient did not perform the activity before the current illness, exacerbation or injury. 10-Not Attempted due to Environmental Limitations-(lack of equipment, weather restraints, etc.). 88-Not Attempted due to Medical Conditions or Safety Concerns. Lying to Sitting/Side of Bed(Q: 3 Sit to Stand (QC): 3 Chair/Gnt-ry-Fyidg Xfer(QC): 3 Weight Bearing Right Lower Extremity: Right Weight Bearing/Tolerated Left Lower Extremity: Left Weight Bearing/Tolerated Gait Training Does the Patient Walk?: Yes Distance: 400' Walk 10 feet (QC): 3 Walk 50 ft with 2 Turns(QC): 3 Walk 150 ft (QC): 3 Gait Assistive Device: FWW safe and functional Exercises Seated Therapy Exercises: Ankle pumps, Long arc quads, Hip flexion Seated Reps: 5 Treatments Pt performed the seated EXs listed above, pt had difficulty completing EXs, and needed VC and TC. Pt was seated in recliner, with family present. Assessment Current Status: Fair Progress Patient much more alert on this date, however, remains confused. Patient requires redirection to remain on task. Pt would benefit from more PT, to improve on strength and activity tolerance. PT Student Officer Goals Student Officer Goals PT Custodial Goals Time Frame: Jan 12, 2022 Roll Left & Right (QC): 3 Sit to Lying (QC): 3 Lying-Sitting on Side/Bed(QC): 3 Sit to Stand (QC): 3 Chair/Tzc-vd-Hmkww Xfer(QC): 3 Walk 10 feet (QC): 3 PT Plan Problem List Problem List: Activity Tolerance, Functional Strength, Balance Treatment/Plan Treatment Plan: Continue Plan of Care Treatment Plan: Bed Mobility, Education, Functional Activity [place], Functional Strength, Gait, Safety, Therapeutic Exercise, Transfers Treatment Duration: Jan 12, 2022 Frequency: 6 times per week Estimated Hrs Per Day: .25 hour per day Patient and/or Family Agrees t: Yes Safety Risks/Education Patient Education: Transfer Techniques, Correct Positioning, Safety Issues Teaching Recipient: Patient Teaching Methods: Discussion Response to Teaching: Reinforcement Needed Time/GCodes Time In: 840 Time Out: 910 Total Billed Treatment Time: 30 Total Billed Treatment 1, FA x2 (30) APPLE DEUTSCH PAINTER ORDNANCE Jan 07, 2022 09:31
[2022-01-07] MEDS: ENOXAPARIN INJECTION 30 MG/0.3 ML SYR SC SCH (09:40)
--- NOTE | 2022-01-07 10:15 | Occupational Ther Daily Note ---
OT Current Status-Daily Note Subjective Pt alert, sitting in recliner. Family present in room. Pt much improved from yesterday. Pt agrees to therapy. Pt is [place]. Pt states that he was at his old job yesterday. Unable to reorient. Mental Status/Objective Patient Orientation: Person, Confused Attachments: Quinteros Catheter, IV, Telemetry ADL-Treatment Pt agrees to sponge bath. Pt able to reach all areas with SBA and verbal cues to stay on task, did refuse to cleanse feet though is able to reach feet easily. Pt declines to complete oral care. Standing to cleanse noa area and buttocks with SBA and using FWW to stabilize. After session, pt sitting in recliner with call light/phone in reach. Family present in room. All needs met. Therapy Code Descriptions/Definitions Functional [place] Measure: 0=Not Assessed/NA 4=Minimal Assistance 1=Total Assistance 5=Supervision or Setup 2=Maximal Assistance 6=Modified [place] 3=Moderate Assistance 7=Complete IndependenceSCALE: Activities may be completed with or without assistive devices. 3-Nzjfbukgmp-lentwac completes the activity by him/herself with no assistance from a helper. 5-Set-up or Clean-up Assistance-helper sets up or cleans up; patient completes activity. [place] assists only prior to or following the activity. 4-Supervision or Touching Assistance-helper provides verbal cues and/or touching/steadying and/or contact guard assistance as patient completes activity. Assistance may be provided throughout the activity or intermittently. 3-Partial/Moderate Assistance-helper does LESS THAN HALF the effort. [place] lifts, holds or supports trunk or limbs, but provides less than half the effort. 2-Substantial/Maximal Assistance-helper does MORE THAN HALF the effort. [place] lifts or holds trunk or limbs and provides more than half the effort. 2-Wgbelcfeg-xoqcnx does ALL the effort. Patient does none of the effort to complete the activity. Or, the assistance of 2 or more helpers is required for the patient to complete the activity. If activity was not attempted, code reason: 7-Patient Refused. 9-Not Applicable-not attempted and the patient did not perform the activity before the current illness, exacerbation or injury. 10-Not Attempted due to Environmental Limitations-(lack of equipment, weather restraints, etc.). 88-Not Attempted due to Medical Conditions or Safety Concerns. Oral Hygiene (QC): 7 Shower/Bathe Self (QC): 4 (SBA) On/Off Footwear: 5 (Per clinical judment.) OT Mcfp Goals [employer] Manager Goals Time Frame: Jan 26, 2022 Eating (QC): 5 Oral Hygiene (QC): 5 Toileting Hygiene (QC): 4 Shower/Bathe Self (QC): 4 Upper Body Dressing (QC): 4 Lower Body Dressing (QC): 4 On/Off Footwear (QC): 4 1=Demonstrate adherence to instructed precautions during ADL tasks. 2=Patient will verbalize/demonstrate understanding of assistive devices/mo difications for ADL. 3=Patient will improve strength/tolerance for activity to enable patient to perform ADL's. OT Education/Plan Problem List/Assessment Assessment: Decreased Activ Tolerance, Decreased Safety Aware, Decreased UE Strength, Impaired Cognition, Impaired Self-Care Skills Discharge Recommendations Plan/Recommendations: Continue POC Treatment Plan/Plan of Care Patient would benefit from OT for education, treatment and training to promote independence in ADL's, mobility, safety and/or upper extremity function for ADL's. Plan of Care: ADL Retraining, Caregiver Training, Cognitive Retraining, Functional Mobility, Group Exercise/Act as Ind, UE Funct Exercise/Act Treatment Duration: Jan 26, 2022 Frequency: 3 times per week (3-5x/week) Estimated Hrs Per Day: .25 hour per day Rehab Potential: Guarded Time/GCodes Start Time: 09:40 Stop Time: 09:56 Total Time Billed (hr/min): 16 Billed Treatment Time 1 visit-ADL 1 (16 min) CHELSEY RAGLAND Jan 07, 2022 10:15
[2022-01-07] MEDS ORDERED: LEVO500T81 PO (11:01)
[2022-01-07] MEDS ORDERED: NITR0.4T42 SL (11:01)
[2022-01-07] MEDS ORDERED: MIDO10TA PO (11:01)
[2022-01-07] MEDS ORDERED: ROSU20TA32 PO (11:01)
[2022-01-07] MEDS ORDERED: TICA90TA PO (11:01)
--- NOTE | 2022-01-07 11:03 | Discharge Summary ---
Diagnosis/Chief Complaint Date of Admission Jan 01, 2022 at 14:43 Date of Discharge Discharge Date: Jan 07, 2022 Discharge Diagnosis Assessment: NSTEMI Seizure like activity due to cefepime presumed Aystolic event Presumed UTI with cultures showing no growth empirically treated with ant ibiotics Cardiogenic shock Status post stent to RCA Leukocytosis Severe bradycardia Acute delirium Poor reserve Acute kidney injury Lactic acidosis due to volume depletion no source of sepsis Solo kidney HTN HLP Obstructive sleep apnea Chronic kidney disease Hypothyroidism Plan: NSTEMI Seizure like activity asystolic event Presumed UTI with cultures showing no growth empirically treated with antibiotics Cardiogenic shock Status post stent to RCA Leukocytosis Severe bradycardia Acute delirium Poor reserve Acute kidney injury Solo kidney Lactic acidosis due to volume depletion no source of sepsis Continue supportive care. Continue on Levaquin. Continue on Keppra 500mg. Continue on dopamine and Midodrine 5mg TID for blood pressure control. [facility] who are determining when he can DC dopamine. PT likely will need a pace maker. Once he is off the dopamine we will review what the next steps of his care will be. Continue speech therapy for dysphagia. HTN HLP Obstructive sleep apnea Chronic kidney disease Hypothyroidism No acute management needed at this time Discharge Summary Discharge Physical Examination Allergies: Coded Allergies: nortriptyline (Verified Allergy, Unknown, 01/01/22) cefepime (Verified Adverse Reaction, Severe, 01/04/22) SEIZURE Vitals & I&Os Vital Signs Date Time Temp Pulse Resp B/P (MAP) Pulse Ox O2 Delivery O2 Flow Rate FiO2 01/07/22 12:00 98 Room Air 01/07/22 09:00 98 35 138/77 01/07/22 08:00 36.5 01/03/22 18:00 6.00 General Appearance: Alert, Oriented X3, Cooperative Respiratory: Clear to Auscultation Cardiovascular: Regular Rate Neuro: Normal Gait, Normal Speech, Strength at 5/5 X4 Ext Hospital Course Was the Problem List Reviewed?: Yes Hospital Course: This is Mr. Cummings, an 86 yo M, who came to the ED with chest pain, which was subsequently diagnosed as an NSTEMI. He underwent cardiac catheterization and a stent was placed in his right coronary artery. After this, he developed confusion, acute kidney injury, oliguria and severe bradycardia. He was soon moved to the ICU for the increased acuity of care. There was a noted leukocytosis on his labs, this was pursued with chest x-ray, urinalysis, urine a nd blood cultures. He was started on broad spectrum IV antibiotics. He was very frail, with decreased alertness and disorientation. He was placed on IV dopamine for severe bradycardia. This medication was weaned as tolerated. Quinteros catheter was placed for the oliguria. Pt improved with the IV antibiotics. He was continually seen by cardiology. During his stay, his family became increasingly worried about his sundowning. They are adamant that pt does no longer need to be in hospital. The family has repeatedly stated that "he will here if he stays." With his worsening dementia, poor mobility and poor prognosis, it was strongly recommended that the acute rehab unit would be beneficial to the patient. This was explained to the family. This transition of care was denied by his and children. Even with further explanation, the family had still decided to take him home so that he could be in his home environment. Cardiology was also not comfortable with the pt going home just yet. At this time, pt will be discharged per the family's request. MIRANDA CANNON MED STUDENT Jan 07, 2022 13:03 Labs (last 24 hrs) Laboratory Tests 01/01/22 12:28: White Blood Count 9.9, Red Blood Count 4.74, Hemoglobin 14.8, Hematocrit 46, Mean Corpuscular Volume 96, Mean Corpuscular Hemoglobin 31, Mean Corpuscular Hemoglobin Concent 32, Red Cell Distribution Width 13.2, Platelet Count 152, Mean Platelet Volume 10.0, Immature Granulocyte % (Auto) 1, Neutrophils (%) (Auto) 78H, Lymphocytes (%) (Auto) 12, Monocytes (%) (Auto) 9, Eosinophils (%) (Auto) 0, Basophils (%) (Auto) 1, Neutrophils # (Auto) 7.7, Lymphocytes # (Auto) 1.2, Monocytes # (Auto) 0.9, Eosinophils # (Auto) 0.0, Basophils # (Auto) 0.1, Immature Granulocyte # (Auto) 0.1, Prothrombin Time 13.4, INR Comment 1.0, Activated Partial Thromboplast Time 35, Sodium Level 139, Potassium Level 4.5, Chloride Level 101, Carbon Dioxide Level 26, Anion Gap 12, Blood Urea Nitrogen 23H, Creatinine 1.46H, Estimat Glomerular Filtration Rate 47, BUN/Creatinine Ratio 16, Glucose Level 136H, Calcium Level 10.1, Corrected Calcium 10.1, Magnesium Level 1.9, Total Bilirubin 0.6, Aspartate Amino Transf (AST/SGOT) 101H , Alanine Aminotransferase (ALT/SGPT) 33, Alkaline Phosphatase 119, Troponin I 16.03*H, Pro-B-Type Natriuretic Peptide 2740.0H, Total Protein 7.7, Albumin 4.0 01/01/22 12:41: Lactic Acid Level 1.75 01/01/22 19:24: Glucometer 148H 01/01/22 21:45: Troponin I 30.297*H 01/02/22 01:18: White Blood Count 11.0, Red Blood Count 4.17L, Hemoglobin 13.3, Hematocrit 41, Mean Corpuscular Volume 98, Mean Corpuscular Hemoglobin 32, Mean Corpuscular Hemoglobin Concent 33, Red Cell Distribution Width 13.3, Platelet Count 141, Mean Platelet Volume 10.6, Immature Granulocyte % (Auto) 1, Neutrophils (%) (Auto) 85H, Lymphocytes (%) (Auto) 7L, Monocytes (%) (Auto) 6, Eosinophils (%) (Auto) 0, Basophils (%) (Auto) 0, Neutrophils # (Auto) 9.4H, Lymphocytes # (Auto) 0.8L, Monocytes # (Auto) 0.7, Eosinophils # (Auto) 0.0, Basophils # (Auto) 0.0, Immature Granulocyte # (Auto) 0.1, Neutrophils % (Manual) 77, Lymphocytes % (Manual) 7, Monocytes % (Manual) 9, Band Neutrophils 7, Percent Immature Platelet Fraction 6.3, Blood Morphology Comment NORMAL, Sodium Level 137, Potassium Level 5.2H, Chloride Level 107, Carbon Dioxide Level 15L, Anion Gap 15H, Blood Urea Nitrogen 27H, Creatinine 1.78H, Estimat Glomerular Filtration Rate 37, BUN/Creatinine Ratio 15, Glucose Level 178H, Lactic Acid Level 3.59*H, Calcium Level 8.4L, Corrected Calcium 9.1, Phosphorus Level 3.5, Magnesium Level 1.8, Total Bilirubin 1.6H, Aspartate Amino Transf (AST/SGOT) 208H, Alanine Aminotransferase (ALT/SGPT) 127H, Alkaline Phosphatase 112, Troponin I 34.729*H, Total Protein 6.0L, Albumin 3.1L, Procalcitonin 0.26H 01/02/22 02:49: Urine Color ORANGE, Urine Clarity CLEAR, Urine pH 5.5, Urine Specific [place] 1.015L, Urine Protein 1+H, Urine Glucose (UA) NEGATIVE, Urine Ketones NEGATIVE, Urine Nitrite NEGATIVE, Urine Bilirubin NEGATIVE, Urine Urobilinogen 0.2, Urine Leukocyte Esterase NEGATIVE, Urine RBC (Auto) 3+H, Urine RBC 25-50H, Urine WBC NONE, Urine Squamous Epithelial Cells NONE, Urine Crystals NONE, Urine Bacteria TRACE, Urine Casts NONE, Urine Mucus NEGATIVE, Urine Culture Indicated CULTURE PENDING 01/02/22 03:00: Blood Gas Puncture Site LEFT RADIAL, Blood Gas Patient Temperature 36.4, Arterial Blood pH 7.33*L, Arterial Blood Partial Pressure CO2 37, Arterial Blood Partial Pressure O2 128H, Arterial Blood HCO3 19L, Arterial Blood Total CO2 20.3L, Arterial Blood Oxygen Saturation 98, Arterial Blood Base Excess -5.7L, Nik Test YES-POS, Blood Gas Ventilator Setting NO, Blood Gas Inspired Oxygen 6L 01/02/22 04:27: White Blood Count 11.7H, Red Blood Count 4.14L, Hemoglobin 13.0L, Hematocrit 40, Mean Corpuscular Volume 98, Mean Corpuscular Hemoglobin 31, Mean Corpuscular Hemoglobin Concent 32, Red Cell Distribution Width 13.2, Platelet Count 139, Mean Platelet Volume 11.2, Immature Granulocyte % (Auto) 1, Neutrophils (%) (Auto) 83H, Lymphocytes (%) (Auto) 7L, Monocytes (%) (Auto) 9, Eosinophils (%) (Auto) 0, Basophils (%) (Auto) 0, Neutrophils # (Auto) 9.7H, Lymphocytes # (Auto) 0.9L, Monocytes # (Auto) 1.1H, Eosinophils # (Auto) 0.0, Basophils # (Auto) 0.0, Immature Granulocyte # (Auto) 0.1, Percent Immature Platelet Fraction 6.2, Sodium Level 137, Potassium Level 6.2H, Chloride Level 108H, Carbon Dioxide Level 17L, Anion Gap 12, Blood Urea Nitrogen 30H, Creatinine 1.86H, Estimat Glomerular Filtration Rate 35, BUN/Creatinine Ratio 16, Glucose Level 156H, Lactic Acid Level 2.30*H, Calcium Level 8.4L, Corrected Calcium 9.2, Magnesium Level 1.9, Total Bilirubin 1.2H, Aspartate Amino Transf (AST/SGOT) 190H, Alanine Aminotransferase (ALT/SGPT) 126H, Alkaline Phosphatase 108, Troponin I 33.610*H, Total Protein 5.9L, Albumin 3.0L, Triglycerides Level 45, Cholesterol Level 98, LDL Cholesterol Direct 48, VLDL Cholesterol 9, HDL Cholesterol 41, Thyroid Stimulating Hormone (TSH) 1.25 01/02/22 06:52: Lactic Acid Level 2.67*H 01/02/22 09:00: Lactic Acid Level 3.06*H 01/02/22 11:11: Lactic Acid Level 3.21*H 01/02/22 11:45: Sodium Level 141, Potassium Level 5.2H, Chloride Level 110H, Carbon Dioxide Level 17L, Anion Gap 14, Blood Urea Nitrogen 38H, Creatinine 2.13H, Estimat Glomerular Filtration Rate 30, BUN/Creatinine Ratio 18, Glucose Level 137H, Calcium Level 8.4L 01/02/22 13:20: Lactic Acid Level 1.44 01/02/22 17:31: Glucometer 69L 01/02/22 19:28: Glucometer 107 01/02/22 23:52: Glucometer 105 01/03/22 03:49: White Blood Count 17.2H, Red Blood Count 3.53L, Hemoglobin 11.2L, Hematocrit 34L , Mean Corpuscular Volume 96, Mean Corpuscular Hemoglobin 32, Mean Corpuscular Hemoglobin Concent 33, Red Cell Distribution Width 13.2, Platelet Count 136, Mean Platelet Volume 11.3, Immature Granulocyte % (Auto) 1, Neutrophils (%) (Auto) 85H, Lymphocytes (%) (Auto) 5L, Monocytes (%) (Auto) 9, Eosinophils (%) (Auto) 0, Basophils (%) (Auto) 0, Neutrophils # (Auto) 14.7H, Lymphocytes # (Auto) 0.9L, Monocytes # (Auto) 1.5H, Eosinophils # (Auto) 0.0, Basophils # (Auto) 0.0, Immature Granulocyte # (Auto) 0.1, Sodium Level 139, Potassium Level 4.6, Chloride Level 111H, Carbon Dioxide Level 17L, Anion Gap 11, Blood Urea Nitrogen 43H, Creatinine 2.04H, Estimat Glomerular Filtration Rate 31, BUN/Creatinine Ratio 21, Glucose Level 96, Calcium Level 8.1L, Corrected Calcium 9.1, Magnesium Level 1.9, Total Bilirubin 0.8, Aspartate Amino Transf (AST/SGOT) 102H, Alanine Aminotransferase (ALT/SGPT) 87H, Alkaline Phosphatase 85, Total Pr otein 5.4L, Albumin 2.8L, Procalcitonin 0.77H 01/03/22 10:07: Lactic Acid Level 0.83 01/03/22 11:20: Urine Color DARK YELLOW, Urine Clarity SL CLOUDY, Urine pH 5.5, Urine Specific [place] 1.025H, Urine Protein 2+H, Urine Glucose (UA) NEGATIVE, Urine Ketones NEGATIVE, Urine Nitrite NEGATIVE, Urine Bilirubin NEGATIVE, Urine Urobilinogen 1.0, Urine Leukocyte Esterase 2+H, Urine RBC (Auto) 3+H, Urine RBC 25-50H, Urine WBC 25-50H, Urine Squamous Epithelial Cells RARE, Urine Crystals PRESENTH, Urine Amorphous Sediment FEW IZTEL URATESH, Urine Bacteria LARGEH, Urine Casts PRESENT, Urine Coarse Granular Casts 0-2H, Urine Mucus NEGATIVE, Urine Culture Indicated YES 01/03/22 12:01: Glucometer 101 01/03/22 17:02: Glucometer 96 01/04/22 00:41: Glucometer 109 01/04/22 02:40: White Blood Count 12.5H, Red Blood Count 3.61L, Hemoglobin 11.4L, Hematocrit 34L , Mean Corpuscular Volume 95, Mean Corpuscular Hemoglobin 32, Mean Corpuscular Hemoglobin Concent 33, Red Cell Distribution Width 12.7, Platelet Count 142, Mean Platelet Volume 10.5, Immature Granulocyte % (Auto) 1, Neutrophils (%) (Auto) 82H, Lymphocytes (%) (Auto) 7L, Monocytes (%) (Auto) 10, Eosinophils (%) (Auto) 0, Basophils (%) (Auto) 0, Neutrophils # (Auto) 10.3H, Lymphocytes # (Auto) 0.8L, Monocytes # (Auto) 1.2H, Eosinophils # (Auto) 0.0, Basophils # (Auto) 0.0, Immature Granulocyte # (Auto) 0.1, Sodium Level 137, Potassium Level 4.1, Chloride Level 108H, Carbon Dioxide Level 18L, Anion Gap 11, Blood Urea Nitrogen 38H, Creatinine 1.67H, Estimat Glomerular Filtration Rate 40, BUN/Creatinine Ratio 23, Glucose Level 95, Calcium Level 8.3L, Corrected Calcium 9.3, Magnesium Level 2.0, Total Bilirubin 0.7, Aspartate Amino Transf (AST/SGOT) 76H, Alanine Aminotransferase (ALT/SGPT) 83H, Alkaline Phosphatase 91, Total Protein 5.6L, Albumin 2.8L 01/04/22 03:40: Phosphorus Level 2.4 01/04/22 13:11: Glucometer 122H 01/04/22 17:28: Glucometer 87 01/05/22 00:27: Glucometer 105 01/05/22 03:45: White Blood Count 10.7, Red Blood Count 3.90L, Hemoglobin 12.2L, Hematocrit 36L, Mean Corpuscular Volume 93, Mean Corpuscular Hemoglobin 31, Mean Corpuscular Hemoglobin Concent 34, Red Cell Distribution Width 12.6, Platelet Count 156, Mean Platelet Volume 10.4, Immature Granulocyte % (Auto) 1, Neutrophils (%) (Auto) 83H, Lymphocytes (%) (Auto) 7L, Monocytes (%) (Auto) 9, Eosinophils (%) (Auto) 0, Basophils (%) (Auto) 0, Neutrophils # (Auto) 8.9H, Lymphocytes # ( Auto) 0.8L, Monocytes # (Auto) 0.9, Eosinophils # (Auto) 0.0, Basophils # (Auto) 0.0, Immature Granulocyte # (Auto) 0.1, Sodium Level 142, Potassium Level 4.1, Chloride Level 108H, Carbon Dioxide Level 19L, Anion Gap 15H, Blood Urea Nitrogen 29H, Creatinine 1.38H, Estimat Glomerular Filtration Rate 50, BUN/Creatinine Ratio 21, Glucose Level 108H, Calcium Level 8.7, Corrected Calcium 9.5, Magnesium Level 2.0, Total Bilirubin 0.9, Aspartate Amino Transf (AST/SGOT) 56H, Alanine Aminotransferase (ALT/SGPT) 76H, Alkaline Phosphatase 97, Total Protein 6.2L, Albumin 3.0L 01/05/22 11:37: Glucometer 98 01/05/22 18:12: Glucometer 101 01/05/22 23:53: Glucometer 81 01/06/22 05:00: White Blood Count 10.5, Red Blood Count 3.84L, Hemoglobin 12.0L, Hematocrit 35L, Mean Corpuscular Volume 92, Mean Corpuscular Hemoglobin 31, Mean Corpuscular Hemoglobin Concent 34, Red Cell Distribution Width 12.8, Platelet Count 181, Mean Platelet Volume 10.3, Immature Granulocyte % (Auto) 1, Neutrophils (%) (Auto) 78H, Lymphocytes (%) (Auto) 9L, Monocytes (%) (Auto) 10, Eosinophils (%) (Auto) 1, Basophils (%) (Auto) 0, Neutrophils # (Auto) 8.3H, Lymphocytes # (Auto) 1.0, Monocytes # (Auto) 1.1H, Eosinophils # (Auto) 0.1, Basophils # (Auto) 0.0, Immature Granulocyte # (Auto) 0.1, Sodium Level 141, Potassium Level 3.9, Chloride Level 108H, Carbon Dioxide Level 19L, Anion Gap 14, Blood Urea Nitrogen 29H, Creatinine 1.50H, Estimat Glomerular Filtration Rate 45, BUN/Creatinine Ratio 19, Glucose Level 91, Calcium Level 8.4L, Corrected Calcium 9.4, Magnesium Level 2.0, Total Bilirubin 0.8, Aspartate Amino Transf (AST/SGOT) 35H, Alanine Aminotransferase (ALT/SGPT) 57H, Alkaline Phosphatase 85, Total Protein 5.7L, Albumin 2.8L 01/06/22 12:08: Glucometer 131H 01/06/22 18:12: Glucometer 95 01/06/22 23:59: Glucometer 90 01/07/22 04:10: White Blood Count 12.1H, Red Blood Count 3.95L, Hemoglobin 12.3L, Hematocrit 37L , Mean Corpuscular Volume 94, Mean Corpuscular Hemoglobin 31, Mean Corpuscular Hemoglobin Concent 33, Red Cell Distribution Width 12.8, Platelet Count 203, Mean Platelet Volume 10.0, Immature Granulocyte % (Auto) 1, Neutrophils (%) (Auto) 78H, Lymphocytes (%) (Auto) 11L, Monocytes (%) (Auto) 9, Eosinophils (%) (Auto) 1, Basophils (%) (Auto) 0, Neutrophils # (Auto) 9.4H, Lymphocytes # (Auto) 1.4, Monocytes # (Auto) 1.1H, Eosinophils # (Auto) 0.1, Basophils # (Auto) 0.0, Immature Granulocyte # (Auto) 0.1, Sodium Level 142, Potassium Level 4.0, Chloride Level 108H, Carbon Dioxide Level 19L, Anion Gap 15H, Blood Urea Nitrogen 25H, Creatinine 1.49H, Estimat Glomerular Filtration Rate 45, BUN/Creatinine Ratio 17, Glucose Level 89, Calcium Level 8.6, Corrected Calcium 9.3, Magnesium Level 2.1, Total Bilirubin 0.9, Aspartate Amino Transf (AST/SGOT) 33, Alanine Aminotransferase (ALT/SGPT) 50, Alkaline Phosphatase 87, Total Protein 6.2L, Albumin 3.1L 01/07/22 05:34: Glucometer 97 Microbiology 01/03/22 Urine Culture - Final, Complete NO GROWTH 01/03/22 Blood Culture - Preliminary, Resulted No growth Pending Labs Microbiology Date/Time Source Procedure Growth Status 01/03/22 11:20 Urine .er/Not Indicated Urine Culture - Final NO GROWTH Complete 01/03/22 10:36 Peripheral Lt Ac Blood Culture - Preliminary No growth Resulted 01/03/22 10:07 Peripheral Not Otherwise Specified Blood Culture - Preliminary No growth Resulted 01/02/22 02:49 Urine U Cath,Nos Urine Culture - Final NO GROWTH Complete 01/02/22 01:18 Peripheral Lt Ac Blood Culture - Final No growth Complete Laboratory Tests 01/01/22 12:28: White Blood Count 9.9, Red Blood Count 4.74, Hemoglobin 14.8, Hematocrit 46, Mean Corpuscular Volume 96, Mean Corpuscular Hemoglobin 31, Mean Corpuscular Hemoglobin Concent 32, Red Cell Distribution Width 13.2, Platelet Count 152, Mean Platelet Volume 10.0, Immature Granulocyte % (Auto) 1, Neutrophils (%) (Auto) 78, Lymphocytes (%) (Auto) 12, Monocytes (%) (Auto) 9, Eosinophils (%) (Auto) 0, Basophils (%) (Auto) 1, Neutrophils # (Auto) 7.7, Lymphocytes # (Auto) 1.2, Monocytes # (Auto) 0.9, Eosinophils # (Auto) 0.0, Basophils # (Auto) 0.1, Immature Granulocyte # (Auto) 0.1, Prothrombin Time 13.4, INR Comment 1.0, Activated Partial Thromboplast Time 35, Sodium Level 139, Potassium Level 4.5, Chloride Level 101, Carbon Dioxide Level 26, Anion Gap 12, Blood Urea Nitrogen 23, Creatinine 1.46, Estimat Glomerular Filtration Rate 47, BUN/Creatinine Ratio 16, Glucose Level 136, Calcium Level 10.1, Corrected Calcium 10.1, Magnesium Level 1.9, Total Bilirubin 0.6, Aspartate Amino Transf (AST/SGOT) 101, Alanine Aminotransferase (ALT/SGPT) 33, Alkaline Phosphatase 119, Troponin I 16.03, Pro-B-Type Natriuretic Peptide 2740.0, Total Protein 7.7, Albumin 4.0 01/01/22 12:41: Lactic Acid Level 1.75 01/01/22 19:24: Glucometer 148 01/01/22 21:45: Troponin I 30.297 01/02/22 01:18: White Blood Count 11.0, Red Blood Count 4.17, Hemoglobin 13.3, Hematocrit 41, Mean Corpuscular Volume 98, Mean Corpuscular Hemoglobin 32, Mean Corpuscular Hemoglobin Concent 33, Red Cell Distribution Width 13.3, Platelet Count 141, Mean Platelet Volume 10.6, Immature Granulocyte % (Auto) 1, Neutrophils (%) (Auto) 85, Lymphocytes (%) (Auto) 7, Monocytes (%) (Auto) 6, Eosinophils (%) (Auto) 0, Basophils (%) (Auto) 0, Neutrophils # (Auto) 9.4, Lymphocytes # (Auto) 0.8, Monocytes # (Auto) 0.7, Eosinophils # (Auto) 0.0, Basophils # (Auto) 0.0, Immature Granulocyte # (Auto) 0.1, Neutrophils % (Manual) 77, Lymphocytes % (Manual) 7, Monocytes % (Manual) 9, Band Neutrophils 7, Percent Immature Platelet Fraction 6.3, Blood Morphology Comment NORMAL, Sodium Level 137, Potassium Level 5.2, Chloride Level 107, Carbon Dioxide Level 15, Anion Gap 15, Blood Urea Nitrogen 27, Creatinine 1.78, Estimat Glomerular Filtration Rate 37, BUN/Creatinine Ratio 15, Glucose Level 178, Lactic Acid Level 3.59, Calcium Level 8.4, Corrected Calcium 9.1, Phosphorus Level 3.5, Magnesium Level 1.8, Total Bilirubin 1.6, Aspartate Amino Transf (AST/SGOT) 208, Alanine Aminotransferase (ALT/SGPT) 127, Alkaline Phosphatase 112, Troponin I 34.729, Total Protein 6.0, Albumin 3.1, Procalcitonin 0.26 01/02/22 02:49: Urine Color ORANGE, Urine Clarity CLEAR, Urine pH 5.5, Urine Specific [place] 1.015, Urine Protein 1+, Urine Glucose (UA) NEGATIVE, Urine Ketones NEGATIVE, Urine Nitrite NEGATIVE, Urine Bilirubin NEGATIVE, Urine Urobilinogen 0.2, Urine Leukocyte Esterase NEGATIVE, Urine RBC (Auto) 3+, Urine RBC 25-50, Urine WBC NONE, Urine Squamous Epithelial Cells NONE, Urine Crystals NONE, Urine Bacteria TRACE, Urine Casts NONE, Urine Mucus NEGATIVE, Urine Culture Indicated CULTURE PENDING 01/02/22 03:00: Blood Gas Puncture Site LEFT RADIAL, Blood Gas Patient Temperature 36.4, Arterial Blood pH 7.33, Arterial Blood Partial Pressure CO2 37, Arterial Blood Partial Pressure O2 128, Arterial Blood HCO3 19, Arterial Blood Total CO2 20.3, Arterial Blood Oxygen Saturation 98, Arterial Blood Base Excess -5.7, Nik Test YES-POS, Blood Gas Ventilator Setting NO, Blood Gas Inspired Oxygen 6L 01/02/22 04:27: White Blood Count 11.7, Red Blood Count 4.14, Hemoglobin 13.0, Hematocrit 40, Mean Corpuscular Volume 98, Mean Corpuscular Hemoglobin 31, Mean Corpuscular Hemoglobin Concent 32, Red Cell Distribution Width 13.2, Platelet Count 139, Mean Platelet Volume 11.2, Immature Granulocyte % (Auto) 1, Neutrophils (%) (Auto) 83, Lymphocytes (%) (Auto) 7, Monocytes (%) (Auto) 9, Eosinophils (%) (Auto) 0, Basophils (%) (Auto) 0, Neutrophils # (Auto) 9.7, Lymphocytes # (Auto) 0.9, Monocytes # (Auto) 1.1, Eosinophils # (Auto) 0.0, Basophils # (Auto) 0.0, Immature Granulocyte # (Auto) 0.1, Percent Immature Platelet Fraction 6.2, Sodium Level 137, Potassium Level 6.2, Chloride Level 108, Carbon Dioxide Level 17, Anion Gap 12, Blood Urea Nitrogen 30, Creatinine 1.86, Estimat Glomerular Filtration Rate 35, BUN/Creatinine Ratio 16, Glucose Level 156, Lactic Acid Level 2.30, Calcium Level 8.4, Corrected Calcium 9.2, Magnesium Level 1.9, Total Bilirubin 1.2, Aspartate Amino Transf (AST/SGOT) 190, Alanine Aminotransferase (ALT/SGPT) 126, Alkaline Phosphatase 108, Troponin I 33.610, Total Protein 5.9, Albumin 3.0, Triglycerides Level 45, Cholesterol Level 98, LDL Cholesterol Direct 48, VLDL Cholesterol 9, HDL Cholesterol 41, Thyroid Stimulating Hormone (TSH) 1.25 01/02/22 06:52: Lactic Acid Level 2.67 01/02/22 09:00: Lactic Acid Level 3.06 01/02/22 11:11: Lactic Acid Level 3.21 01/02/22 11:45: Sodium Level 141, Potassium Level 5.2, Chloride Level 110, Carbon Dioxide Level 17, Anion Gap 14, Blood Urea Nitrogen 38, Creatinine 2.13, Estimat Glomerular Filtration Rate 30, BUN/Creatinine Ratio 18, Glucose Level 137, Calcium Level 8.4 01/02/22 13:20: Lactic Acid Level 1.44 01/02/22 17:31: Glucometer 69 01/02/22 19:28: Glucometer 107 01/02/22 23:52: Glucometer 105 01/03/22 03:49: White Blood Count 17.2, Red Blood Count 3.53, Hemoglobin 11.2, Hematocrit 34, Mean Corpuscular Volume 96, Mean Corpuscular Hemoglobin 32, Mean Corpuscular Hemoglobin Concent 33, Red Cell Distribution Width 13.2, Platelet Count 136, Mean Platelet Volume 11.3, Immature Granulocyte % (Auto) 1, Neutrophils (%) (Auto) 85, Lymphocytes (%) (Auto) 5, Monocytes (%) (Auto) 9, Eosinophils (%) (Auto) 0, Basophils (%) (Auto) 0, Neutrophils # (Auto) 14.7, Lymphocytes # (Auto) 0.9, Monocytes # (Auto) 1.5, Eosinophils # (Auto) 0.0, Basophils # (Auto) 0.0, Immature Granulocyte # (Auto) 0.1, Sodium Level 139, Potassium Level 4.6, Chloride Level 111, Carbon Dioxide Level 17, Anion Gap 11, Blood Urea Nitrogen 43, Creatinine 2.04, Estimat Glomerular Filtration Rate 31, BUN/Creatinine Ratio 21, Glucose Level 96, Calcium Level 8.1, Corrected Calcium 9.1, Magnesium Level 1.9, Total Bilirubin 0.8, Aspartate Amino Transf (AST/SGOT) 102, Alanine Aminotransferase (ALT/SGPT) 87, Alkaline Phosphatase 85, Total Protein 5.4, Albumin 2.8, Procalcitonin 0.77 01/03/22 10:07: Lactic Acid Level 0.83 01/03/22 11:20: Urine Color DARK YELLOW, Urine Clarity SL CLOUDY, Urine pH 5.5, Urine Specific [place] 1.025, Urine Protein 2+, Urine Glucose (UA) NEGATIVE, Urine Ketones NEGATIVE, Urine Nitrite NEGATIVE, Urine Bilirubin NEGATIVE, Urine Urobilinogen 1.0, Urine Leukocyte Esterase 2+, Urine RBC (Auto) 3+, Urine RBC 25-50, Urine WBC 25-50, Urine Squamous Epithelial Cells RARE, Urine Crystals PRESENT, Urine Amorphous Sediment FEW ITZEL URATES, Urine Bacteria LARGE, Urine Casts PRESENT, Urine Coarse Granular Casts 0-2, Urine Mucus NEGATIVE, Urine Culture Indicated YES 01/03/22 12:01: Glucometer 101 01/03/22 17:02: Glucometer 96 01/04/22 00:41: Glucometer 109 01/04/22 02:40: White Blood Count 12.5, Red Blood Count 3.61, Hemoglobin 11.4, Hematocrit 34, Mean Corpuscular Volume 95, Mean Corpuscular Hemoglobin 32, Mean Corpuscular Hemoglobin Concent 33, Red Cell Distribution Width 12.7, Platelet Count 142, Mean Platelet Volume 10.5, Immature Granulocyte % (Auto) 1, Neutrophils (%) (Auto) 82, Lymphocytes (%) (Auto) 7, Monocytes (%) (Auto) 10, Eosinophils (%) (Auto) 0, Basophils (%) (Auto) 0, Neutrophils # (Auto) 10.3, Lymphocytes # (Auto) 0.8, Monocytes # (Auto) 1.2, Eosinophils # (Auto) 0.0, Basophils # (Auto) 0.0, Immature Granulocyte # (Auto) 0.1, Sodium Level 137, Potassium Level 4.1, Chloride Level 108, Carbon Dioxide Level 18, Anion Gap 11, Blood Urea Nitrogen 38, Creatinine 1.67, Estimat Glomerular Filtration Rate 40, BUN/Creatinine Ratio 23, Glucose Level 95, Calcium Level 8.3, Corrected Calcium 9.3, Magnesium Level 2.0, Total Bilirubin 0.7, Aspartate Amino Transf (AST/SGOT) 76, Alanine Ami notransferase (ALT/SGPT) 83, Alkaline Phosphatase 91, Total Protein 5.6, Albumin 2.8 01/04/22 03:40: Phosphorus Level 2.4 01/04/22 13:11: Glucometer 122 01/04/22 17:28: Glucometer 87 01/05/22 00:27: Glucometer 105 01/05/22 03:45: White Blood Count 10.7, Red Blood Count 3.90, Hemoglobin 12.2, Hematocrit 36, Mean Corpuscular Volume 93, Mean Corpuscular Hemoglobin 31, Mean Corpuscular Hemoglobin Concent 34, Red Cell Distribution Width 12.6, Platelet Count 156, Mean Platelet Volume 10.4, Immature Granulocyte % (Auto) 1, Neutrophils (%) (Auto) 83, Lymphocytes (%) (Auto) 7, Monocytes (%) (Auto) 9, Eosinophils (%) (Auto) 0, Basophils (%) (Auto) 0, Neutrophils # (Auto) 8.9, Lymphocytes # (Auto) 0.8, Monocytes # (Auto) 0.9, Eosinophils # (Auto) 0.0, Basophils # (Auto) 0.0, Immature Granulocyte # (Auto) 0.1, Sodium Level 142, Potassium Level 4.1, Chloride Level 108, Carbon Dioxide Level 19, Anion Gap 15, Blood Urea Nitrogen 29, Creatinine 1.38, Estimat Glomerular Filtration Rate 50, BUN/Creatinine Ratio 21, Glucose Level 108, Calcium Level 8.7, Corrected Calcium 9.5, Magnesium Level 2.0, Total Bilirubin 0.9, Aspartate Amino Transf (AST/SGOT) 56, Alanine Aminotransferase (ALT/SGPT) 76, Alkaline Phosphatase 97, Total Protein 6.2, Albumin 3.0 01/05/22 11:37: Glucometer 98 01/05/22 18:12: Glucometer 101 01/05/22 23:53: Glucometer 81 01/06/22 05:00: White Blood Count 10.5, Red Blood Count 3.84, Hemoglobin 12.0, Hematocrit 35, Mean Corpuscular Volume 92, Mean Corpuscular Hemoglobin 31, Mean Corpuscular Hemoglobin Concent 34, Red Cell Distribution Width 12.8, Platelet Count 181, Mean Platelet Volume 10.3, Immature Granulocyte % (Auto) 1, Neutrophils (%) (Auto) 78, Lymphocytes (%) (Auto) 9, Monocytes (%) (Auto) 10, Eosinophils (%) (Auto) 1, Basophils (%) (Auto) 0, Neutrophils # (Auto) 8.3, Lymphocytes # (Auto) 1.0, Monocytes # (Auto) 1.1, Eosinophils # (Auto) 0.1, Basophils # (Auto) 0.0, Immature Granulocyte # (Auto) 0.1, Sodium Level 141, Potassium Level 3.9, Chloride Level 108, Carbon Dioxide Level 19, Anion Gap 14, Blood Urea Nitrogen 29, Creatinine 1.50, Estimat Glomerular Filtration Rate 45, BUN/Creatinine Ratio 19, Glucose Level 91, Calcium Level 8.4, Corrected Calcium 9.4, Magnesium Level 2.0, Total Bilirubin 0.8, Aspartate Amino Transf (AST/SGOT) 35, Alanine Aminotransferase (ALT/SGPT) 57, Alkaline Phosphatase 85, Total Protein 5.7, Albumin 2.8 01/06/22 12:08: Glucometer 131 01/06/22 18:12: Glucometer 95 01/06/22 23:59: Glucometer 90 01/07/22 04:10: White Blood Count 12.1, Red Blood Count 3.95, Hemoglobin 12.3, Hematocrit 37, Mean Corpuscular Volume 94, Mean Corpuscular Hemoglobin 31, Mean Corpuscular Hemoglobin Concent 33, Red Cell Distribution Width 12.8, Platelet Count 203, Mean Platelet Volume 10.0, Immature Granulocyte % (Auto) 1, Neutrophils (%) (Auto) 78, Lymphocytes (%) (Auto) 11, Monocytes (%) (Auto) 9, Eosinophils (%) (Auto) 1, Basophils (%) (Auto) 0, Neutrophils # (Auto) 9.4, Lymphocytes # (Auto) 1.4, Monocytes # (Auto) 1.1, Eosinophils # (Auto) 0.1, Basophils # (Auto) 0.0, Immature Granulocyte # (Auto) 0.1, Sodium Level 142, Potassium Level 4.0, Chloride Level 108, Carbon Dioxide Level 19, Anion Gap 15, Blood Urea Nitrogen 25, Creatinine 1.49, Estimat Glomerular Filtration Rate 45, BUN/Creatinine Ratio 17, Glucose Level 89, Calcium Level 8.6, Corrected Calcium 9.3, Magnesium Level 2.1, Total Bilirubin 0.9, Aspartate Amino Transf (AST/SGOT) 33, Alanine Aminotransferase (ALT/SGPT) 50, Alkaline Phosphatase 87, Total Protein 6.2, Albumin 3.1 01/07/22 05:34: Glucometer 97 Discharge Home Medications: Active Scripts Active Levofloxacin 500 Mg Tablet 500 Mg PO Q48H start 01/08/22 Nitroglycerin 0.4 Mg Tab.subl 0.4 Mg SL UD PRN Rosuvastatin Calcium 20 Mg Tablet 20 Mg PO HS Brilinta (Ticagrelor) 90 Mg Tablet 90 Mg PO BID Midodrine HCl 10 Mg Tablet 10 Mg PO WM Reported Megared [place]-3 Krill Oil Sfgl (Krill/Om-3/Dha/Epa/Phospho/Ast) 1 Each Capsule 1 Each PO DAILY Gabapentin 100 Mg Capsule 100 Mg PO HS Aspirin 81 Mg Tab.chew 81 Mg PO DAILY Vitamin B-12 (Cyanocobalamin (Vitamin B-12)) 1,000 Mcg Tablet 1,000 Mcg PO DAILY Vitamin C (Ascorbate Calcium) 500 Mg Tablet 500 Mg PO DAILY Calcium 600 + Vit D 200 Tablet (Calcium Carbonate/Vitamin D3) 1 Each Tablet 1 Each PO DAILY Levothyroxine Sodium 50 Mcg Tablet 50 Mcg PO DAILY Allopurinol 300 Mg Tablet 300 Mg PO 1200 Instructions to patient/family Please see electronic discharge instructions given to patient. Diagnosis/Problems Diagnosis/Problems (1) NSTEMI (non-ST elevated myocardial infarction) Status: Acute (2) Bradycardia (3) S/P right coronary artery (RCA) stent placement (4) Volume depletion (5) Hyperkalemia (6) Stage 3 chronic kidney disease (7) Encephalopathy acute (8) Cardiogenic shock (9) Single kidney (10) Gouty arthritis (11) Acquired hypothyroidism EUSEBIO KRAUS DO Jan 07, 2022 11:02
--- NOTE | 2022-01-07 11:18 | D/C HH Face to Face Order ---
D/C HH Face to Face Orders Reconcile Patient Problems Problems Reviewed?: Yes Instructions for Patient HH Patient Instructions/FollowUp: PCP 1 week Physician to follow Patient: Courtney Lewis Discharge Diet for Home: Cardiac Diet Patient Problems: Cardiogenic shock Patient Data-Allergies,Ht & Wt Patient Allergies: Coded Allergies: nortriptyline (Verified Allergy, Unknown, 01/01/22) cefepime (Verified Adverse Reaction, Severe, 01/04/22) SEIZURE Height (Feet): 5 Height (Inches): 7.00 Weight (Pounds): 129 Weight (Ounces): 0.0 Home Health Need/Face to Face Date of Face to Face: Jan 07, 2022 Clinical Findings: Generalized weakness and fatigue, Instability, Muscle w eakness, Unsteady gait I have seen Pt [id number]: Yes Discharged To: Home Diagnosis/Conditions: Cardiogenic shock Patient is Homebound due to: CognItive deficits, Jimmy fall risk due to instabilty, Muscle weakness, Shortness of breath/distress Homebound Status Due to the above stated illness, injury or surgical procedure (medical condition or diagnosis) and associated clinical findings, the patient is homebound because of his/her inability to leave home except with aid of a supportive device and/or person AND leaving the home requires a considerable and taxing effort or is medically contraindicated. Pt req the following assistanc: [facility] Nursing Orders Home Health Services Order: Nursing Services, Research Epidemiologist-Evaluate & Treat, Physical Therapy-Evaluate & Treat Home Health Infusion Therapy Line Start Date: Jan 01, 2022 Certify Stmt I certify that this patient is under my care and that I, a nurse practitioner or a physician; a speech assistant working with me, had a face to face encounter that - meets the physician face to face encounter requirements with this patient as dated. EUSEBIO KRAUS DO Jan 07, 2022 11:18
--- NOTE | 2022-01-07 13:03 | Progress Note ---
MIRANDA CANNON MED STUDENT 01/07/22 1303: Progress Note Hospital Course: This is Mr. Cummings, an 86 yo M, who came to the ED with chest pain, which was subsequently diagnosed as an NSTEMI. He underwent cardiac catheterization and a stent was placed in his right coronary artery. After this, he developed confusion, acute kidney injury, oliguria and severe bradycardia. He was soon moved to the ICU for the increased acuity of care. There was a noted leukocytosis on his labs, this was pursued with chest x-ray, urinalysis, urine and blood cultures. He was started on broad spectrum IV antibiotics. He was very frail, with decreased alertness and disorientation. He was placed on IV dopamine for severe bradycardia. This medication was weaned as tolerated. Quinteros catheter was placed for the oliguria. Pt improved with the IV antibiotics. He was continually seen by cardiology. During his stay, his family became increasingly worried about his sundowning. They are adamant that pt does no longer need to be in hospital. The family has repeatedly stated that he will here if he stays. With his worsening dementia, poor mobility and poor prognosis, it was strongly recommended that the acute rehab unit would be beneficial to the patient. This was explained to the family. This transition of care was denied by his and children. Even with further explanation, the family had still decided to take him home so that he could be in his home environment. Cardiology was also not comfortable with the pt going home just yet. At this time, pt will be discharged per the family's request. RADHA KRAUS DO 01/08/22 0547: Supervisory-Addendum Brief Verification & Attestation Participated in pt care: history, MDM, physical Personally performed: exam, history, MDM, supervision of care Care discussed with: Medical Student Procedures: n/a Results interpretation: Verified all documentation Verification and Attestation of Medical Student E/M Service A medical student performed and documented this service in my presence. I reviewed and verified all information documented by the medical student and made modifications to such information, when appropriate. I personally performed the physical exam and medical decision making. Radha Kraus Jan 08, 2022,05:47 MIRANDA CANNON MED STUDENT Jan 07, 2022 13:03 RADHA KRAUS DO Jan 08, 2022 05:47
--- NOTE | 2022-01-07 13:11 | Speech Therapy Daily Note ---
Speech Daily Progress Note Subjective Date Seen by Provider: Jan 07, 2022 Time Seen by Provider: 11:30 The patient was seated upright in his recliner, awake and alert upon entrance to his room by the clinician. The patient greeted the clinician appropriately and was agreeable to participation in the dysphagia treatment session. The patient displays increased alertness on this date however intermittent confusion remains present. The patient does share additional information regarding his swallowing function with the clinician and his past medical history of two esophageal dilation procedures. Per patient, "things get stuck right here." The patient localizes the globus sensation to the laryngeal region. The patient stated, "I think it's time to get it stretched again." The patient's reported tolerance of the current diet consistency however stated the patient does not care for the pureed items. Objective The patient was provided the following items by the clinician: - Five teaspoons of water and three single, small straw drinks of thin liquid: The patient demonstrated an immediate throat clear and wet vocal quality following three of five teaspoon trials. The patient demonstrated a delayed, rigorous cough in response to to two of three straw drinks trials. - Five teaspoons of nectar-thick juice and six straw drinks of nectar-thick (prior to the patient polite decline): Overt s/s of suspected aspiration were not demonstrated with any trials of nectar-thick liquid. - Puree/Soft Solids: The patient was provided five bites of puree and three bit es of soft solids. The patient demonstrated slightly prolonged mastication with the soft solid consistency however complete bolus formation was achieved. Overt s/s of suspected aspiration were not demonstrated with the puree or soft solid consistency. The patient does report a globus sensation with soft solid consistencies intermittently however does not report pain. The patient stated he able to clear the globus sensation with a second swallow (dry). Recommendations: - Dysphagia two consistency diet with nectar-thick liquids, as tolerated. - Fully upright and alert for PO intake. - Small, single bites and sips. - Crush medication and place in puree for administration. - Full feeding assistance by staff or family secondary to fatigue and intermittent confusion. - Consider follow up with the physician who completed the prior esophageal dilations due to the patient's reports of the globus sensation and stating, "I think it's time again." The clinician visited with the patient's regarding the recommendation who stated, "We will address that after we arrive home and get the rest better." - Monitor for s/s of suspected aspiration with PO intake. If demonstrated, contact speech pathology. - Speech pathology to assess diet tolerance two times weekly or as appropriate. The recommendation for the diet upgrade from puree to a dysphagia two consistency was provided to the patient's RN and discussed with the patient and his . The patient's son was present at the time of the discussion regarding recommendations as well. Assessment Assessment Current Status: Good Progress Treatment Plan Continue Plan of Care Speech Short Term Goals Short Term Goals Short Term Goals 1. The patient, family, and staff will follow safe swallowing procedures to reduce aspiration risks with P.O. intake. Time Frame-STG: Four Days. Speech Mcc Goals Mcc Goals 1. The patient will tolerate the least restrictive diet consistency without s/s of suspected aspiration. Time Frame: One Week. Speech-Plan Treatment Plan Speech Therapy Treatment Plan: Continue Plan of Care Treatment Duration: Jan 12, 2022 Frequency: 2 times per week Estimated Hrs Per Day: .25 hour per day Rehab Potential: Guarded Pt/Family Agrees to Plan: Yes Safety Risks/Education Teaching Recipient: Patient, Family Teaching Methods: Discussion Response to Teaching: Reinforcement Needed Education Topics Provided: Plan, Recommendations Time Speech Therapy Time In: 11:30 Speech Therapy Time Out: 11:45 Total Billed Time: 15 Billed Treatment Time JAZZ José [facility] ST Jan 07, 2022 13:11
== END 2022-01-07 14:35 | disposition home health service (06) | DRG 246 ==
LOC: EDUNIT# 12:10 → ER FS 12:12 → CSD 14:43 → ICU 23:32
PROVIDERS: ADMIT Internal Medicine; ATTEND Internal Medicine
PROC: 027034Z Dilation of Coronary Artery, One Artery with Drug-eluting Intraluminal Device, Percutaneous Approach (ICD-10-PCS; principal; 2022-01-01)
PROC: 4A023N7 Measurement of Cardiac Sampling and Pressure, Left Heart, Percutaneous Approach (ICD-10-PCS; 2022-01-01)
PROC: B2111ZZ Fluoroscopy of Multiple Coronary Arteries using Low Osmolar Contrast (ICD-10-PCS; 2022-01-01)
PROC: 05H533Z Insertion of Infusion Device into Right Subclavian Vein, Percutaneous Approach (ICD-10-PCS; 2022-01-02)
DX: I21.4 Non-ST elevation (NSTEMI) myocardial infarction (principal); R57.0 Cardiogenic shock; N17.0 Acute kidney failure with tubular necrosis; I46.9 Cardiac arrest, cause unspecified; E87.2 Acidosis; G93.40 Encephalopathy, unspecified; N39.0 Urinary tract infection, site not specified; E03.9 Hypothyroidism, unspecified; Z90.5 Acquired absence of kidney; I25.10 Atherosclerotic heart disease of native coronary artery without angina pectoris; K21.9 Gastro-esophageal reflux disease without esophagitis; M19.90 Unspecified osteoarthritis, unspecified site; H91.90 Unspecified hearing loss, unspecified ear; R00.1 Bradycardia, unspecified; R41.0 Disorientation, unspecified; E86.9 Volume depletion, unspecified; E78.5 Hyperlipidemia, unspecified; G47.33 Obstructive sleep apnea (adult) (pediatric); I12.9 Hypertensive chronic kidney disease with stage 1 through stage 4 chronic kidney disease, or unspecified chronic kidney disease; N18.30 Chronic kidney disease, stage 3 unspecified; I50.810 Right heart failure, unspecified; M10.9 Gout, unspecified; T50.8X5A Adverse effect of diagnostic agents, initial encounter; D72.829 Elevated white blood cell count, unspecified
CPT/HCPCS: 36415; 70450; 71045; 74018; 80048; 80053; 80061; 81000; 82805; 82947; 83605; 83735; 83880; 84100; 84145; 84443; 84484; 85007; 85025; 85027; 85610; 85730; 87040; 87081; 87088; 93005; 93041; 93306; 93458; 94640; 94660; 94760

== ENCOUNTER 2022-01-12 23:05 | Emergency (ER) | payer MEDICARE, OTHER ==
[~2022-01-12 23:05] MED LIST changes: +ASPI-999 PO; +GABA-486 PO; +KRIL1CAP22 PO; +LEVO500T81 PO; +MIDO10TA PO; +NITR0.4T42 SL; +ROSU20TA32 PO; +TICA90TA PO
[2022-01-13] MEDS ORDERED: IOHEXOL 350 MG/ML 100 ML (OMNIPAQUE 350) VIAL IV ONE
[2022-01-13] MEDS ORDERED: NS 100 ML (IVPB) BAG IV ONE
[2022-01-13] MEDS ORDERED: CATHETER FLUSH 10 ML SYR IV PRN
[2022-01-13] MEDS ORDERED: HOLD METFORMIN - RECEIVED CONTRAST 20 ML VIAL IV SCH
[2022-01-13 00:08] LABS: BASOPHILS # (AUTO) 0.1 10^3/uL (0.0-0.1); BASOPHILS % (AUTO) 1 % (0-10); EOSINOPHILS # (AUTO) 0.1 10^3/uL (0.0-0.3); EOSINOPHILS % (AUTO) 1 % (0-10); HEMATOCRIT 34 % (40-54); HEMOGLOBIN 11.7 g/dL (13.3-17.7); LYMPHOCYTES # (AUTO) 1.4 10^3/uL (1.0-4.0); LYMPHOCYTES % (AUTO) 13 % (12-44); MEAN CORPUSCULAR HEMOGLOBIN 31 pg (25-34); MEAN CORPUSCULAR HGB CONC 34 g/dL (32-36); MEAN CORPUSCULAR VOLUME 91 fL (80-99); MEAN PLATELET VOLUME 9.9 fL (9.0-12.2); MONOCYTES # (AUTO) 1.2 10^3/uL (0.0-1.0); MONOCYTES % (AUTO) 11 % (0-12); NEUTROPHILS # (AUTO) 8.2 10^3/uL (1.8-7.8); NEUTROPHILS % (AUTO) 74 % (42-75); PLATELET COUNT 392 10^3/uL (130-400); WHITE BLOOD COUNT 11.1 10^3/uL (4.3-11.0)
--- NOTE | 2022-01-13 00:16 | ED Abdominal Pain ---
General Chief Complaint: Abdominal/GI Problems Stated Complaint: LOWER ABDOMINAL PAIN Nursing Triage Note: Patient arrival per POV to ED with assistance of wheelchair from car. Pt reports a low abd pain with sensation to go to bathroom for BM and cannot. Pt had BM yesterday and diarrhea the 2 days prior. Pt has been inactive since his heart stent placed 01/01/22. Denies chest pain, SOA, or epigatric pain. Source of Information: Patient, Family Exam Limitations: No Limitations History of Present Illness Date Seen by Provider: Jan 13, 2022 Time Seen by Provider: 23:15 Initial Comments Patient is a 86-year-old male who presents with abdominal pain belching feeling of the urge to have a bowel movement. Patient states he had a bowel movement yesterday and 2 days of diarrhea prior. Patient has been inactive since recent heart stent placement 12 days ago. No chest pain palpitation shortness of breath or other cardiac equivalents. Timing/Duration: 1-3 Hours Severity/Quality: Moderate Location: Other Radiation: Other Activities at Onset: Other Modifying Factors: Improves With Other Associated Symptoms: Other Allergies and Home Medications Allergies Coded Allergies: nortriptyline (Verified Allergy, Unknown, 01/01/22) cefepime (Verified Adverse Reaction, Severe, 01/04/22) SEIZURE Patient Home Medication List Home Medication List Reviewed: Yes Allopurinol (Allopurinol) 300 Mg Tablet, 300 MG PO 1200, (Reported) Entered as Reported by: SUMMER JOE on 10/29/181330 Last Action: Last Taken Edited Ascorbate Calcium (Vitamin C) 500 Mg Tablet, 500 MG PO DAILY, (Reported) Entered as Reported by: SUMMER JOE on 10/29/181330 Last Action: Last Taken Edited Aspirin (Aspirin) 81 Mg Tab.chew, 81 MG PO DAILY, (Reported) Entered as Reported by: BREN VERDIN on 01/01/22 1538 Last Action: Last Taken Edited Calcium Carbonate/Vitamin D3 (Calcium 600 + Vit D 200 Tablet) 1 Each Tablet, 1 EACH PO DAILY, (Reported) Entered as Reported by: SUMMER JOE on 10/29/181330 Last Action: Last Taken Edited Cyanocobalamin (Vitamin B-12) (Vitamin B-12) 1,000 Mcg Tablet, 1,000 MCG PO DAILY, (Reported) Entered as Reported by: SUMMER JOE on 10/29/181330 Last Action: Last Taken Edited Gabapentin (Gabapentin) 100 Mg Capsule, 100 MG PO HS, (Reported) Entered as Reported by: BREN VERDIN on 01/01/22 1538 Last Action: Last Taken Edited Krill/Om-3/Dha/Epa/Phospho/Ast (Megared [place]-3 Krill Oil Sfgl) 1 Each Capsule, 1 EACH PO DAILY, (Reported) Entered as Reported by: VERONICA CROWLEY on 01/03/22 1128 Last Action: Last Taken Edited Levofloxacin (Levofloxacin) 500 Mg Tablet, 500 MG PO Q48H Prescribed by: EUSEBIO KRAUS on 01/07/22 110 Last Action: Last Taken Edited Levothyroxine Sodium (Levothyroxine Sodium) 50 Mcg Tablet, 50 MCG PO DAILY, (Reported) Entered as Reported by: SUMMER JOE on 10/29/181330 Last Action: Last Taken Edited Midodrine HCl (Midodrine HCl) 10 Mg Tablet, 10 MG PO WM Prescribed by: EUSEBIO KRAUS on 01/07/22 110 Last Action: Last Taken Edited Nitroglycerin (Nitroglycerin) 0.4 Mg Tab.subl, 0.4 MG SL UD PRN for CHEST PAIN (ANGINA) Prescribed by: EUSEIBO KRAUS on 01/07/22 110 Last Action: Last Taken Edited Rosuvastatin Calcium (Rosuvastatin Calcium) 20 Mg Tablet, 20 MG PO HS Prescribed by: EUSEBIO KRAUS on 01/07/221100 Last Action: Last Taken Edited Ticagrelor (Brilinta) 90 Mg Tablet, 90 MG PO BID Prescribed by: EUSEBIO KRAUS on 01/07/221100 Last Action: Last Taken Edited Review of Systems Review of Systems Constitutional: see HPI EENTM: See HPI Respiratory: See HPI Cardiovascular: See HPI Gastrointestinal: See HPI Genitourinary: See HPI Musculoskeletal: see HPI Skin: see HPI Psychiatric/Neurological: See HPI Endocrine: See HPI Hematologic/Lymphatic: See HPI Past Raneweb-[id number]-[id number] Hx Patient Social History Tobacco Use?: Yes Smoking Status: Unknown if Ever Smoked Substance use?: No Alcohol Use?: No Immunizations Up To Date First/Initial COVID19 Vaccinat: Yes Second COVID19 Vaccination Otto: yes COVID19 Vaccine 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 Gout, hypothyroidism, neuropathy. Surgeries: Yes (hernia repair) Gallbladder, Nephrectomy, Orthopedic Respiratory: No Sleep Apnea Currently Using CPAP: No (HASNT USED CPAP FOR 5-6 YEARS) Cardiac: Yes Coronary Artery Disease, Hypertension Neurological: No Genitourinary: No Gastrointestinal: Yes Gastroesophageal Reflux Musculoskeletal: Yes Arthritis Endocrine: No Hypothyroidsim HEENT: No Hearing Impairment: Hard of Hearing, Hearing Aide Right Cancer: No Psychosocial: No Integumentary: No Blood Disorders: No Physical Exam Vital Signs Vital Signs - First Documented 01/12/22 23:15 Temp 37.0 Pulse 81 Resp 18 B/P (MAP) 141/73 (95) Pulse Ox 99 O2 Delivery Room Air Capillary Refill : Less Than 3 Seconds Height/Weight/BMI Height: 5'7.00" Weight: 129lbs. 0.0oz. [id number]; 19.60 BMI Method: General Appearance: no apparent distress HEENT: PERRL/EOMI Respiratory: lungs clear, normal breath sounds, no respiratory distress Gastrointestinal: soft Back: normal inspection Neurologic/Psychiatric: alert, normal mood/affect, oriented x 3 Focused Exam Sepsis Stage: Ruled Out Progress/Results/Core Measures Results/Orders Lab Results Laboratory Tests Test 01/12/22 23:50 Range/Units White Blood Count 11.1 H 4.3-11.0 10^3/uL Red Blood Count 3.74 L 4.30-5.52 10^6/uL Hemoglobin 11.7 L 13.3-17.7 g/dL Hematocrit 34 L 40-54 % Mean Corpuscular Volume 91 80-99 fL Mean Corpuscular Hemoglobin 31 25-34 pg Mean Corpuscular Hemoglobin Concent 34 32-36 g/dL Red Cell Distribution Width 12.6 10.0-14.5 % Platelet Count 392 130-400 10^3/uL Mean Platelet Volume 9.9 9.0-12.2 fL Immature Granulocyte % (Auto) 1 % Neutrophils (%) (Auto) 74 42-75 % Lymphocytes (%) (Auto) 13 12-44 % Monocytes (%) (Auto) 11 0-12 % Eosinophils (%) (Auto) 1 0-10 % Basophils (%) (Auto) 1 0-10 % Neutrophils # (Auto) 8.2 H 1.8-7.8 10^3/uL Lymphocytes # (Auto) 1.4 1.0-4.0 10^3/uL Monocytes # (Auto) 1.2 H 0.0-1.0 10^3/uL Eosinophils # (Auto) 0.1 0.0-0.3 10^3/uL Basophils # (Auto) 0.1 0.0-0.1 10^3/uL Immature Granulocyte # (Auto) 0.1 0.0-0.1 10^3/uL Percent Immature Platelet Fraction 4.2 0.0-7.6 % Sodium Level 138 135-145 MMOL/L Potassium Level 4.3 3.6-5.0 MMOL/L Chloride Level 101 98-107 MMOL/L Carbon Dioxide Level 24 21-32 MMOL/L Anion Gap 13 5-14 MMOL/L Blood Urea Nitrogen 26 H 7-18 MG/DL Creatinine 1.36 H 0.60-1.30 MG/DL Estimat Glomerular Filtration Rate 51 BUN/Creatinine Ratio 19 Glucose Level 108 H 70-105 MG/DL Calcium Level 9.2 8.5-10.1 MG/DL Corrected Calcium 9.6 8.5-10.1 MG/DL Total Bilirubin 0.7 0.1-1.0 MG/DL Aspartate Amino Transf (AST/SGOT) 196 H 5-34 U/L Alanine Aminotransferase (ALT/SGPT) 183 H 0-55 U/L Alkaline Phosphatase 164 H 40-136 U/L Total Protein 7.2 6.4-8.2 GM/DL Albumin 3.5 3.2-4.5 GM/DL My Orders Orders - STEPHAN IBRAHIM DO Cbc With Automated Diff (01/12/22 23:45) Comprehensive Metabolic Panel (01/12/22 23:45) Ct Abdomen/Pelvis W (01/12/22 23:45) Urinalysis (01/12/22 23:45) Ns Iv 1000 Ml (Sodium Chloride 0.9%) (01/13/22 00:45) Medications Given in ED Current Medications Medications Dose Ordered Sig/Dulce Route Start Time Stop Time Status Last Admin Dose Admin Iohexol 100 ml ONCE ONCE IV 01/13/22 00:00 01/13/22 00:09 DC 01/13/22 00:30 75 ML Sodium Chloride 10 ml NEEDED PRN IV 01/13/22 00:00 01/13/22 00:31 10 ML Sodium Chloride 100 ml ONCE ONCE IV 01/13/22 00:00 01/13/22 00:09 DC 01/13/22 00:31 80 ML Vital Signs/I&O 01/12/22 23:15 Temp 37.0 Pulse 81 Resp 18 B/P (MAP) 141/73 (95) Pulse Ox 99 O2 Delivery Room Air Blood Pressure Mean: 95 Departure Communication (Admissions) CT abdomen pelvis: Patient with recent outpatient labs. CT abdomen pelvis ordered for evaluation of possible bowel obstruction. CT abdomen and pelvis and labs reviewed. Findings consistent with ileus with transaminitis noted to be present. Hospital admission offered but declined by patient and patient's spouse. Patient is able to tolerate water and has follow-up appointment later this morning with PCP . Discharged home with instructions to drink clear liquids and progressed to soft diet as tolerated. Return precautions reviewed. Patient's patient spouse verbalized understanding agreement with discharge instructions prior to departure. Impression Primary Impression: Abdominal pain Additional Impressions: Ileus Transaminitis Disposition: HOME, SELF-CARE Condition: Stable Departure-Patient Inst. Decision time for Depature: 01:04 Referrals: GUY SAUNDERS APRN (PCP) Primary Care Physician [facility]AT[facility] (Family) Primary Care Physician Patient Instructions: Nausea and Vomiting, Adult ED Add. Discharge Instructions: Emiliano was evaluated in the emergency for abdominal pain nausea and vomiting. CT abdomen pelvis was consistent with ileus, or functional bowel obstruction. His liver functions were noted to be elevated. Please drink clear liquids only and gradually increase to a soft bland diet as tolerated over the next 12 to 24 hours. Follow-up with his PCP later this morning as scheduled to review ER lab and CT findings. Return to the ED if new or worsening symptoms All discharge instructions reviewed with patient and/or family. Voiced understanding. STEPHAN IBRAHIM DO Jan 13, 2022 00:16
[2022-01-13 00:27] LABS: BILIRUBIN,TOTAL 0.7 MG/DL (0.1-1.0); CALCIUM 9.2 MG/DL (8.5-10.1); CREATININE SERUM 1.36 MG/DL (0.60-1.30); POTASSIUM 4.3 MMOL/L (3.6-5.0)
[2022-01-13 00:28] LABS: ALBUMIN 3.5 GM/DL (3.2-4.5); TOTAL PROTEIN 7.2 GM/DL (6.4-8.2)
[2022-01-13] MEDS ORDERED: NS IV 1000 ML 1,000 ML IV SCH (00:45)
[2022-01-13 01:15] VITALS: BP 134/68
--- NOTE | 2022-01-13 07:06 | Diagnostic Imaging Report ---
PROCEDURE: CT abdomen and pelvis with contrast. TECHNIQUE: Multiple contiguous axial images were obtained through the abdomen and pelvis after administration of intravenous contrast. Auto Exposure Controls were utilized during the CT exam to meet ALARA standards for radiation dose reduction. All CT scans use one or more of the following dose optimizing techniques: automated exposure control, MA and/or KvP adjustment based on patient size and exam type or iterative reconstruction. DATE: January 13, 2022. COMPARISON: [facility] January 06, 2022. CT abdomen pelvis October 27, 2019. INDICATION: 86-year-old male, abdominal pain. FINDINGS: There are motion limitations of the exam. There are predominantly nodular and/or reticulonodular opacities in the right lower lobe which are an interval change since October 27, 2019. The liver is unremarkable in size and contour. There is no identified liver lesion. The main, right, and left portal veins are patent. The gallbladder is not well seen and may be surgically absent. There is no intrahepatic or extrahepatic bile duct dilation. The main pancreatic duct is not abnormally dilated. Unremarkable appearance of the pancreatic parenchyma. The spleen is normal in size. The adrenal glands are unremarkable. The right kidney is absent. Unremarkable appearance of the left renal parenchyma. There is no left hydronephrosis. There is no identified renal or ureteral stone. The prostate gland is prominent in size and does exert mass effect on the posterior aspect of the urinary bladder. There is diffuse urinary bladder wall thickening which may reflect chronic outlet obstruction and/or cystitis. There is diverticulosis without evidence of acute diverticulitis. The appendix is unremarkable. The intestinal tract is not distended. There is no free intraperitoneal air. There is no drainable fluid collection. There is no free pelvic fluid. There are atherosclerotic calcifications. There is no identified abnormally enlarged lymph node in the abdomen or pelvis meeting CT size criteria for adenopathy. There is chondrocalcinosis. There is scoliosis. There are multilevel degenerative changes of the spine. There is no identified acute bony abnormality. IMPRESSION: CT ABDOMEN AND PELVIS. 1. Motion limited study. 2. Linear and/or reticulonodular opacities in the right lower lobe which are new since comparison exam and may relate to atelectasis, aspiration, or an infectious bronchiolitis. 3. Diffuse urinary bladder wall thickening with prominence of the prostate gland in size which may relate to chronic outlet obstruction and/or cystitis. Dictated by: Dictated on workstation # [id number]
== END 2022-01-13 01:15 | disposition home or self-care (01) ==
LOC: EDUNIT# 23:05 → ER FS 23:09
DX: K56.7 Ileus, unspecified (principal); R74.01 Elevation of levels of liver transaminase levels
CPT/HCPCS: 36415; 74177; 80053; 85025; Q9967

== ENCOUNTER 2022-02-02 12:13 | Emergency (ER) | payer MEDICARE, OTHER ==
[~2022-02-02] VITALS: Ht 170.1 cm; Wt 54.6 kg
[2022-02-02 12:39] VITALS: BP 157/83
--- NOTE | 2022-02-02 12:44 | ED GI ---
General Chief Complaint: Abdominal/GI Problems Stated Complaint: BOWEL CONSTIPATION Source of Information: Patient, Spouse History of Present Illness Date Seen by Provider: February 02, 2022 Time Seen by Provider: 12:39 Initial Comments 86-year-old male presenting with his spouse due to constipation issues. He has been taking Dulcolax by mouth as well as strength suppositories at home. He has had small amounts of hard stool that he had to strain to get out. He today felt like he needed to go and had a lot of pressure in his rectum but was unable to get any stool to come out. It was also putting pressure on his bladder which was making it difficult for him to urinate. He had passed the suppository back out but not passed stool this morning. He tried to go see PCP but they said they did not have any appointments so they advised he go to Urgent care and they sent him here to the ED. He has had no nausea/vomiting. Timing/Duration: Getting Worse, Intermittent Severity/Quality: Severe, Other (pressure in rectum) Location: Suprapubic (pressure) Associated Symptoms: No Back Pain, No Chest Pain, No Diaphoresis, No Fever/Chills; Fatigue; No Headache, No Heartburn, No Nausea/Vomiting, No Shortness of Air, No Swelling/Mass in Abdomen, No Syncope, No Weakness Allergies and Home Medications Allergies Coded Allergies: nortriptyline (Verified Allergy, Unknown, 01/01/22) cefepime (Verified Adverse Reaction, Severe, 01/04/22) SEIZURE Patient Home Medication List Home Medication List Reviewed: Yes Allopurinol (Allopurinol) 300 Mg Tablet, 300 MG PO 1200, (Reported) Entered as Reported by: SUMMER JOE on 10/29/18 1331 Ascorbate Calcium (Vitamin C) 500 Mg Tablet, 500 MG PO DAILY, (Reported) Entered as Reported by: SUMMER JOE on 10/29/18 1331 Aspirin (Aspirin) 81 Mg Tab.chew, 81 MG PO DAILY, (Reported) Entered as Reported by: BREN VERDIN on 01/01/22 1538 Calcium Carbonate/Vitamin D3 (Calcium 600 + Vit D 200 Tablet) 1 Each Tablet, 1 EACH PO DAILY, (Reported) Entered as Reported by: SUMMER JOE on 10/29/18 1331 Cyanocobalamin (Vitamin B-12) (Vitamin B-12) 1,000 Mcg Tablet, 1,000 MCG PO DAILY, (Reported) Entered as Reported by: SUMMER JOE on 10/29/18 1331 Gabapentin (Gabapentin) 100 Mg Capsule, 100 MG PO HS, (Reported) Entered as Reported by: BREN VERDIN on 01/01/22 1538 Krill/Om-3/Dha/Epa/Phospho/Ast (Megared [place]-3 Krill Oil Sfgl) 1 Each Capsule, 1 EACH PO DAILY, (Reported) Entered as Reported by: VERONICA CROWLEY on 01/03/22 1128 Levofloxacin (Levofloxacin) 500 Mg Tablet, 500 MG PO Q48H Prescribed by: EUSEBIO KRAUS on 01/07/22 1101 Levothyroxine Sodium (Levothyroxine Sodium) 50 Mcg Tablet, 50 MCG PO DAILY, (Reported) Entered as Reported by: SUMMER JOE on 10/29/18 1331 Midodrine HCl (Midodrine HCl) 10 Mg Tablet, 10 MG PO WM Prescribed by: EUSEBIO KRAUS on 01/07/22 1101 Nitroglycerin (Nitroglycerin) 0.4 Mg Tab.subl, 0.4 MG SL UD PRN for CHEST PAIN (ANGINA) Prescribed by: EUSEBIO KRAUS on 01/07/22 1101 Rosuvastatin Calcium (Rosuvastatin Calcium) 20 Mg Tablet, 20 MG PO HS Prescribed by: EUSEIBO KRAUS on 01/07/22 1101 Ticagrelor (Brilinta) 90 Mg Tablet, 90 MG PO BID Prescribed by: EUSEBIO KRAUS on 01/07/22 1101 Review of Systems Review of Systems Constitutional: No fever EENTM: No Symptoms Reported Respiratory: No Symptoms Reported Cardiovascular: No Symptoms Reported Gastrointestinal: See HPI Genitourinary: See HPI Musculoskeletal: no symptoms reported Skin: no symptoms reported Psychiatric/Neurological: No Symptoms Reported Past Vzyvbuz-Foxobg-Ngaxjg Hx Immunizations Up To Date First/Initial COVID19 Vaccinat: Yes Second COVID19 Vaccination Otto: yes Seasonal Allergies Seasonal Allergies: No Past Medical History Surgery/Hospitalization HX: Knee surgery, right nephrectomy, left knee replacement, left shoulder replacement, neck surgery, cholecysectomy, bilateral cataract removal. Gout, hypothyroidism, neuropathy. Surgeries: Yes (hernia repair) Gallbladder, Nephrectomy, Orthopedic Respiratory: No Sleep Apnea Currently Using CPAP: No (HASNT USED CPAP FOR 5-6 YEARS) Cardiac: Yes Coronary Artery Disease, Hypertension Neurological: No Genitourinary: No Gastrointestinal: Yes Gastroesophageal Reflux Musculoskeletal: Yes Arthritis Endocrine: No Hypothyroidsim HEENT: No Hearing Impairment: Hard of Hearing, Hearing Aide Right Cancer: No Psychosocial: No Integumentary: No Blood Disorders: No Physical Exam Vital Signs Vital Signs - First Documented 02/02/22 12:39 Temp 35.6 Pulse 91 Resp 18 B/P (MAP) 157/83 (107) Pulse Ox 99 O2 Delivery Room Air Capillary Refill : Height/Weight/BMI Height: 5'7.00" Weight: 129lbs. 0.0oz. [id number]; BMI Method: General Appearance: WD/WN, mild distress Respiratory: chest non-tender, lungs clear, normal breath sounds Cardiovascular: normal peripheral pulses, regular rate, rhythm Gastrointestinal: normal bowel sounds, soft, no pulsatile mass; No distended, No guarding, No rebound; tenderness (suprapubic) Rectal: normal rectal tone, other (large hard stools for fecal impaction. Digital disimpaction produced a large amount of hard balls of stool. Improved pain and pressure to point he was able to urinate) Skin: warm/dry Progress/Results/Core Measures Results/Orders My Orders Orders - NEPTALI VELÁZQUEZ MD Acute Abd Series (02/02/22 12:43) Na Phos/Na Biphos Enema (Fleet Enema Kush (02/02/22 14:49) Vital Signs/I&O 02/02/22 12:39 Temp 35.6 Pulse 91 Resp 18 B/P (MAP) 157/83 (107) Pulse Ox 99 O2 Delivery Room Air Progress Progress Note #1: Progress Note After digital disimpaction he had relief of a great deal of his pain. Acute abdomen xrays done prior to exam show some increased stool in descending and sigmoid colon but no obstruction or free air. Will try a Fleet's enema to help with hard stool in sigmoid area. Recommend Miralax daily to help keep stools soft and regular at home. Progress Note #2: Progress Note Pt had moderate success with Fleet's enema and further improvement in pain and symptoms. Discharge to home with counseling for miralax and increased fiber in diet to help keep stools soft and regular. Diagnostic Imaging Diagonstic Imaging: Xray Plain Films/CT/US/NM/MRI: abdomen Comments [facility] [place], [place] NAME: MARK HILTON JR [facility] REC#: [id number] PT STATUS: DEP ER : 1935 PHYSICIAN: NEPTALI VELÁZQUEZ MD ADMIT DATE: 02/02/22/ER FS Signed Date of Exam:02/02/22 ACUTE ABD SERIES INDICATION: Constipation and rectal pain. Time of Exam: 1:17 PM Heart size normal. There is some tortuosity of the descending thoracic aorta. Lungs are clear of acute infiltrates. No free air is identified. Bowel gas pattern is nonobstructed. There is moderate stool in the left colon and sigmoid. No pathologic calcifications are seen. IMPRESSION: No acute feature is detected. Dictated by: Dictated on workstation # [id number] Dict: 02/02/22 1356 Trans: 02/02/22 1631 [facility] [id number] Interpreted by: KORI GILLIAM MD Electronically signed by: KORI GILLIAM MD 02/02/22 1631 Reviewed: Reviewed by Me Departure Impression Primary Impression: Fecal impaction in rectum Additional Impression: Constipation due to slow transit Disposition: 01 HOME, SELF-CARE Condition: Stable Departure-Patient Inst. Decision time for Depature: 15:27 Referrals: GUY SAUNDERS APRN (PCP) Primary Care Physician [facility] (Family) Primary Care Physician Patient Instructions: Fecal Impaction (DC), Constipation, Adult (DC) Add. Discharge Instructions: Take MiraLAX 17 g in 8 ounces of juice or water once a day to help keep the stools more soft and regular. Increase the fiber in your diet. Follow-up through the clinic with your regular provider for continued concerns about the constipation. All discharge instructions reviewed with patient and/or family. Voiced understanding. NEPTALI VELÁZQUEZ MD February 02, 2022 12:44
--- NOTE | 2022-02-02 13:59 | Diagnostic Imaging Report ---
INDICATION: Constipation and rectal pain. Time of Exam: 1:17 PM Heart size normal. There is some tortuosity of the descending thoracic aorta. Lungs are clear of acute infiltrates. No free air is identified. Bowel gas pattern is nonobstructed. There is moderate stool in the left colon and sigmoid. No pathologic calcifications are seen. IMPRESSION: No acute feature is detected. Dictated by: Dictated on workstation # [id number]
[2022-02-02] MEDS ORDERED: FLEET ENEMA ADULT 1 EA BTL PR STA (14:49)
== END 2022-02-02 15:40 | disposition home or self-care (01) ==
LOC: EDUNIT# 12:13 → ER FS 12:14
DX: K59.01 Slow transit constipation (principal); Z90.49 Acquired absence of other specified parts of digestive tract
CPT/HCPCS: 74022

== ENCOUNTER → 2022-05-13 | Outpatient (CLI) | payer MEDICARE, OTHER ==
[2022-05-13 10:56] LABS: BILIRUBIN,URINE NEGATIVE (NEGATIVE); CLARITY,URINE CLEAR; COLOR,URINE YELLOW; GLUCOSE, URINE (UA) NEGATIVE (NEGATIVE); KETONES,URINE NEGATIVE (NEGATIVE); LEUKOCYTE ESTERASE ,URINE NEGATIVE (NEGATIVE); NITRITE,URINE NEGATIVE (NEGATIVE); PROTEIN,URINE NEGATIVE (NEGATIVE)
[2022-05-13 11:40] LABS: BACTERIA,URINE NEGATIVE /HPF; SQUAMOUS EPITHELIAL CELL,UR RARE /HPF
== END ==
LOC: LAB 10:41
PROVIDERS: ATTEND Specialist
DX: N40.1 Benign prostatic hyperplasia with lower urinary tract symptoms (principal); N13.4 Hydroureter
CPT/HCPCS: 81000

== ENCOUNTER → 2022-10-06 | Outpatient (CLI) | payer MEDICARE, OTHER ==
[~2022-10-06] MED LIST changes: +LEVO-55 PO; -LEVO500T81 PO
--- NOTE | 2022-10-06 16:50 | Diagnostic Imaging Report ---
EXAMINATION: Chest 2 view. HISTORY: Chronic cough. COMPARISON: 01/03/2022. FINDINGS: Lungs are hyperinflated. There are nodular and interstitial opacities in the right lung base. No pleural effusion or pneumothorax. Heart size is normal. IMPRESSION: Hyperinflated lungs with nodular and interstitial opacities in the right lung base which may represent pneumonia or scarring. Dictated by: Dictated on workstation # [id number]
== END ==
LOC: RAD FS 14:15
PROVIDERS: ATTEND Nurse Practitioner Family
DX: R91.8 Other nonspecific abnormal finding of lung field (principal)
CPT/HCPCS: 71046

== ENCOUNTER → 2022-10-20 | Outpatient (CLI) | payer MEDICARE, OTHER ==
--- NOTE | 2022-10-20 18:58 | Diagnostic Imaging Report ---
EXAMINATION: Chest (PA and lateral). CLINICAL INDICATION: 87-year-old male, chronic cough. COMPARISON: October 06, 2022. FINDINGS: Heart size and mediastinal contours are unchanged. There is no identified pneumothorax. There is no sizable pleural effusion. There is unchanged blunting of the right lateral costophrenic angle. There is no identified interval focal airspace consolidation. There are persistent predominantly linear opacities in the right mid and lower lung zones. There is partially imaged cervical spine hardware. IMPRESSION: Persistent predominantly linear opacities in the right mid and lower lung zone and blunting of the right lateral costophrenic angle which potentially could relate to infiltrate, atelectasis and/or scarring. Dictated by: Dictated on workstation # [id number]
== END ==
LOC: RAD FS 10:29
PROVIDERS: ATTEND Nurse Practitioner Family
DX: R91.8 Other nonspecific abnormal finding of lung field (principal)
CPT/HCPCS: 71046

== ENCOUNTER → 2022-10-25 | Outpatient (CLI) | payer MEDICARE, OTHER ==
--- NOTE | 2022-10-25 15:31 | Diagnostic Imaging Report ---
PROCEDURE: CT chest without contrast. TECHNIQUE: Multiple contiguous axial images were obtained through the chest without the use of intravenous contrast. Auto Exposure Controls were utilized during the CT exam to meet ALARA standards for radiation dose reduction. INDICATION: Pulmonary nodular densities. COMPARISON: Exam correlated with overlapped sections obtained at an abdominal CT from 01/13/2022. FINDINGS: There is tracheobronchomegaly and symmetrical air trapping. Some curvilinear bronchiectatic changes in the right middle lobe and lingular segment of the left upper lobe as well as the right lower lobe. These chronic findings have progressed from the prior and superimposed chronic aspiration could not be excluded. No consolidating olayinka pneumonia. No effusion or pneumothorax. Some chronic lipomatous infiltration of the right lateral thoracoabdominal wall is stable from prior. The upper abdomen is nonacute. No thoracic adenopathy. The aorta is nonaneurysmal. No pneumothorax, no abscess, no effusion, and no empyema. IMPRESSION: 1. Progressive chronic-appearing changes of bronchiectasis, scarring, and likely recurrent aspiration. No alveolar consolidating pneumonia. Chronic tracheobronchomegaly and symmetrical air trapping. 2. 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 No suspicious soft tissue density chest mass and no adenopathy. Dictated by: Dictated on workstation # [id number]
== END ==
LOC: RAD FS 12:44
PROVIDERS: ATTEND Nurse Practitioner Family
DX: R91.1 Solitary pulmonary nodule (principal)
CPT/HCPCS: 71250

== ENCOUNTER → 2022-11-16 | Outpatient (CLI) | payer MEDICARE, OTHER ==
--- NOTE | 2022-11-16 13:19 | Diagnostic Imaging Report ---
INDICATION: Dysphasia. Procedure was performed in conjunction with speech pathology. Video fluoroscopy was performed during swallowing of barium multiple consistencies. Total of 57 seconds of fluoroscopic time was utilized. Patient ingested thin barium as well as puree and solid consistency. Oral phase unremarkable. There was episode of laryngeal penetration during swallowing of thin barium. No aspiration was observed. There is moderate vallecular residue noted with multiple consistencies. IMPRESSION: Moderate vallecular residue. There is a single episode of laryngeal penetration with thin barium. No aspiration was observed. Dictated by: Dictated on workstation # [id number]
== END ==
LOC: RAD 07:53
PROVIDERS: ATTEND Nurse Practitioner Family
DX: J69.0 Pneumonitis due to inhalation of food and vomit (principal)
CPT/HCPCS: 74230